=== PATIENT | male | born 1940 | race Caucasian/White ===

== ENCOUNTER 2018-01-24 16:16 | Inpatient (IN) ==
[2018-01-24] MEDS ORDERED: Naloxone 0.4 MG/ML INJ IVP PRN (21:33)
[2018-01-24] MEDS ORDERED: D5% in Water 1,000 ML IVC PRN (21:37)
[2018-01-24] MEDS ORDERED: Dextrose Gel 15 GM/37.5 ML TUBE PO PRN ×2 (21:37)
[2018-01-24] MEDS ORDERED: *HR* Dextrose 50 % in Water (Syg) 50 ML SYRINGE IVP PRN (21:37)
[2018-01-24] MEDS: 0.9 % Sodium Chloride 1,000 ML IVC SCH (22:23)
[2018-01-25] MEDS: Insulin LISPRO 300 UNITS/3 ML VIAL SQ SCH ×4 (00:15→18:43)
--- NOTE | 2018-01-25 01:50 | Internal Med History&Physical ---
Date of Encounter: 01/24/18 Time of Encounter: 20:00 Assessment and Plan (1) Small bowel obstruction Current visit: Yes Status: Acute Patient has nausea vomiting. CT scan shows small bowel obstruction. 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 - Keep the patient nothing by mouth, IV fluid. - NG tube placed, continue intermittent low pressure suction. - Consul surgery. 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 - We will consult oncology for further management (3) Hypertension Current visit: Yes Status: Acute Place patient on hydralazine IV when necessary. Qualifiers: Hypertension type: essential hypertension Qualified Code(s): I10 - Essential (primary) hypertension (4) Diabetes Current visit: Yes Status: Acute Patient takes Januvia at home. Will place the patient on low-dose sliding scale coverage. Qualifiers: Diabetes mellitus type: type 2 Diabetes mellitus alf insulin use: without buttermaker continuous churn use Diabetes mellitus complication status: without complication Qualified Code(s): E11.9 - Type 2 diabetes mellitus without complications (5) DVT prophylaxis Current visit: Yes Status: Acute Heparin subcutaneously Internal Medicine - H&P: HPI Chief complaint: Nausea and vomiting Admitted From: Home Plans for Post Hospital Care: Home History of present illness: Mr. Mcfarland is a 77 year old male with history of diabetes and hypertension, presented to [facility] emergency room for nausea and vomiting since 2 days ago. Patient said he has increased abdominal gas for several months. Since 2 days ago, he started has nausea and vomited a 6 times, the vomiting light brown fluid. Patient had last bowel movement this morning 6 AM, slow is normal. He has passed minimal gas today. Patient denies fever, chest pain, shortness of breath. Patient did complain body weight loss 45 pounds over last year. 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 Past Med Surg Social Fam HX - Past Medical History Medical history: arthritis, diabetes, hyperlipidemia, hypertension Psychiatric history: no psych history - Past Surgical History Surgical History: no surgical history - Social History Smoking Status: Former smoker Smokeless Tobacco Status: No Alcohol use: none Drug use: none - Family History Mother History Unknown: Yes Internal Medicine - H&P: Meds Amlodipine/Atorvastatin [Amlodipine-Atorvast 10-40 mg] 1 each PO 01/24/18 [ History] Aspirin [Aspirin] 81 mg PO 01/24/18 [History] Cholecalciferol (D-3) [Vitamin D] 01/24/18 [History] Flaxseed Oil [Dulac-3 Flaxseed Oil] 01/24/18 [History] Lactobacillus Acidophilus [Acidophilus] 1 each PO 01/24/18 [History] Simethicone [Gas Relief] 125 mg PRN 01/24/18 [History] Simvastatin [Zocor] 40 mg PO HS 01/24/18 [History] SitaGLIPtin [Januvia] 25 mg PO DAILY 01/24/18 [History] Tums PRN 01/24/18 [History] 3 Allergy/AdvReac Type Severity Reaction Status Date / Time No Known Drug Allergies Allergy Unknown None Verified 01/24/18 18:35 All Systems PM: A 10-system review of systems was performed and is negative for pertinent findings except as documented above in the HPI. - Constitutional Vitals: Temp Pulse Resp BP Pulse Ox 99.3 F 92 16 132/77 95 01/25/18 00:15 01/25/18 00:15 01/25/18 00:15 01/25/18 00:15 01/25/18 00:15 General appearance: Present: A&O X 3, no acute distress, answers questions appropriately - Head Head exam: Present: atraumatic, normocephalic - Eye Eye exam: Present: PERRL, conjuntiva pink, sclera anicteric Pupils: Present: PERRL - Neck Neck exam general surgery: Present: supple, trachea midline. Absent: lymphadenopathy - Respiratory Respiratory exam: Present: CTAB. Absent: accessory muscle use, rales, rhonchi, wheezes - Cardiovascular Cardiovascular exam: Present: RRR, +S1, +S2. Absent: diastolic murmur, gallop, rubs, systolic murmur - GI/Abdominal GI/Abdominal exam: Present: hyperactive bowel sounds, normal bowel sounds, soft , tenderness (in 4Q, no rebound), no peritoneal signs. Absent: distended - Extremities Exam Extremities exam: Present: warm, radial pulses palpable and symmetrical. Absent : calf tenderness, cyanotic, pedal edema - Neurological Exam Neurological exam: Present: CN II-XII intact, oriented X3, no focal deficits. Absent: pronater drift, facial droop, speech deficit - Skin Skin exam: Present: dry, intact
[2018-01-25] MEDS: *HR* Heparin 5,000 UNIT/ML VIAL SQ SCH ×2 (05:54→18:42)
[2018-01-25 08:25] LABS: Basophils % 0.5 %; Eosinophils # 0.1 K/mcL (0.0-0.6); Eosinophils % 0.8 %; Hematocrit 25.1 % (37.5-50.1); Immature Granulocytes % 0.2 % (0-4); Lymphocytes % 11.7 %; Mean Corpuscular HGB Conc 31.9 g/dL (31.6-35.5); Mean Corpuscular Hemoglobin 25.2 pg (28.0-33.3); Mean Corpuscular Volume 79.2 fL (83.0-100.0); Mean Platelet Volume 10.5 fL (9.4-12.4); Monocytes % 12.3 %; Neutrophils # 6.1 K/mcL (1.6-8.9); Platelet Count 296 K/mcL (140-400); Red Blood Count 3.17 M/mcL (4.19-5.50); Red Cell Distribution Width 14.8 % (11.5-14.5); Segmented Neutrophils % 74.5 %
[2018-01-25 08:40] LABS: Calcium 7.7 mg/dL (8.6-10.3); Magnesium 1.8 mg/dL (1.6-2.6); Potassium 3.7 mEq/L (3.5-5.1)
[2018-01-25 09:25] LABS: INR 1.5; Prothrombin Time 16.1 Seconds (9.4-12.1)
[2018-01-25 09:28] LABS: Activated Partial Thrombo Time 28.7 Seconds (26.0-36.0)
[2018-01-25] MEDS: 0.9 % Sodium Chloride 1,000 ML IVC SCH (11:07)
--- NOTE | 2018-01-25 12:15 | General Surgery Consult Note ---
<Sunil Henderson - Last Filed: 01/25/18 16:22> Date of Encounter: 01/25/18 Time of Encounter: 09:30 Assessment and Plan (1) Small bowel obstruction Current Visit: Yes Status: Acute CT of abdomen and pelvis from outside hospital showed dilated small bowel loops with liver lesion and possible cecal mass. Repeat CT of the abdomen and pelvis at [place] shows findings suggestive of presence of abnormal soft tissue mass in the proximal ascending colon centered in the region of the ileocecal valve. Finding is highly suspicious for presence of a neoplastic mass with associated metastatic lymphadenopathy within the root of the small bowel mesentery. Mild dilatation of distal/terminal ileum and mild thickening of the wall of the distal most portion of the terminal ileum. Findings in part may be on the basis of partial obstruction associated with the mass involving the colon. Labs show hemoglobin is at 8.0, BUN of 43, and creatinine of 2.32. Baseline creatinine appears to be at 1.82. No leukocytosis. Plan: Continue the NG tube to LIWS-Will watch the 24 hr trend of NG drainage NPO diet Continue IVF Will order pre-albumin and albumin Will order CT of the chest to evaluate for possible mets. Dr. Deutsch will personally consult IR for a guided biopsy of liver and retroperitoneal mass and consult Nephrology tomorrow morning CEA markers ordered- Elevated at 19.8 Pain control and supportive care. OOTB and ambulate with assistance at least three times a day continue to monitor the patient closely History of Present Illness Reason for consult: other (Small bowel obstruction) History of present illness: Mr. Mcfarland is a 77 year old male with history of [id number] diabetes , hypertension, and hyperlipidemia who presented from [facility] emergency room for small bowel obstruction. She presented to [facility] emergency room for nausea and vomiting for the past 2 days. Patient said he has increased abdominal gas for several months. Patient stated that the past couple of days he had nausea and vomitted about 6 times. He denies any blood in his emesis and described the vomiting as light brown fluid. Patient had last bowel movement yesterday morning and described it as soft, formed, and nonbloody. He has passed minimal gas today. Patient currently denies fever, chest pain, shortness of breath, nausea, vomiting, abdominal pain, urinary symptoms, and any weaknesses. Patient did complain body weight loss 45 pounds over last year. 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 Patient is aware of the findings from the CT. Patient also state family history of cancer as follows: Mom with unknown cancer, one sister was stomach cancer, and another sister with lung cancer. Patient denies any self history of cancer and stated he has never had EGD or colonoscopy done. He stated that he not had a colonoscopy completed because he was afraid of possible perforation. Past Med Surg Social Fam HX - Past Medical History Medical history: arthritis, diabetes, hyperlipidemia, hypertension Psychiatric history: no psych history - Past Surgical History Surgical History: no surgical history - Social History Smoking Status: Former smoker Smokeless Tobacco Status: No Alcohol use: none Drug use: none - Family History Mother History Unknown: Yes Medications and Allergies Aspirin [Aspirin] 81 mg PO DAILY 01/24/18 [History] Cholecalciferol (D-3) [Vitamin D] 1,000 mg PO DAILY 01/24/18 [History] Flaxseed Oil [Holt-3 Flaxseed Oil] 1,000 mg PO DAILY 01/24/18 [History] Simethicone [Gas Relief] 125 mg PO QID PRN 01/24/18 [History] Simvastatin [Zocor] 40 mg PO HS 01/24/18 [History] SitaGLIPtin [Januvia] 25 mg PO DAILY 01/24/18 [History] Amlodipine Besylate/Benazepril [Lotrel 10-40 mg Capsule] 1 cap PO DAILY [History] 3 Allergy/AdvReac Type Severity Reaction Status Date / Time No Known Drug Allergies Allergy Unknown None Verified 01/24/18 18:35 Review of Systems All systems PM: The remainder of the systems were reviewed and are negative - Constitutional as per HPI General Surgery Exam Initial Vital Signs Temp Pulse Resp BP Pulse Ox 97.6 F 88 15 124/62 97 01/24/18 17:50 01/24/18 17:50 01/24/18 17:50 01/24/18 17:50 01/24/18 17:50 - General physical appearance well developed, well nourished, no distress - Eyes PERRL, normal ocular movement - ENT normal mucosa, Other (NG tube to LIWS. NG tube in the right nare. Cannister shoes light brown drainage with no blood) - Neck trachea midline - Respiratory normal respiratory effort, clear to auscultation - Cardiovascular Cardiovascular exam: Present: RRR, no murmurs/rubs/gallops - Abdomen Abdomen general surgery: Present: bowel sounds present (Hyperactive bowel sounds in all four quadrants), soft, non tender, distended (Mildly distended). Absent: guarding, rebound, rigid - Integumentary Integumentary general surgery: Present: warm and dry, no abnormal pigmentation - Neurologic Present: CN 2-12 grossly intact - Psychiatric Psychiatric general surgery: Present: A&Ox3, appropriate, other (Pleasant) Exam Initial Vital Signs Temp Pulse Resp BP Pulse Ox 97.6 F 88 15 124/62 97 01/24/18 17:50 01/24/18 17:50 01/24/18 17:50 01/24/18 17:50 01/24/18 17:50 Results - Labs 01/25/18 07:04 01/25/18 07:04 Abnormal lab results RBC 3.17 M/mcL (4.19-5.50) L 01/25/18 07:04 Hgb 8.0 g/dL (12.9-16.9) L 01/25/18 07:04 Hct 25.1 % (37.5-50.1) L 01/25/18 07:04 MCV 79.2 fL (83.0-100.0) L 01/25/18 07:04 MCH 25.2 pg (28.0-33.3) L 01/25/18 07:04 RDW 14.8 % (11.5-14.5) H 01/25/18 07:04 PT 16.1 Seconds (9.4-12.1) H 01/25/18 08:37 Chloride 116 mEq/L (98-107) H 01/25/18 07:04 Carbon Dioxide 19 mEq/L (23-29) L 01/25/18 07:04 BUN 43 mg/dL (8-23) H 01/25/18 07:04 Creatinine 2.32 mg/dL (0.70-1.30) H 01/25/18 07:04 Est GFR ( Amer) 33 (> 60) L 01/25/18 07:04 Est GFR (Non-Af Amer) 27 (> 60) L 01/25/18 07:04 Calculated Osmolality 311 (280-300) H 01/25/18 07:04 Calcium 7.7 mg/dL (8.6-10.3) L 01/25/18 07:04 Carcinoembryonic Ag 19.8 ng/mL (Less than 5.0) H 01/25/18 08:37 Diabetes panel 01/25/18 Range/Units 07:04 Sodium 145 (136-145) mEq/L Potassium 3.7 (3.5-5.1) mEq/L Chloride 116 H (98-107) mEq/L Carbon Dioxide 19 L (23-29) mEq/L BUN 43 H (8-23) mg/dL Creatinine 2.32 H (0.70-1.30) mg/dL Glucose 95 (70-105) mg/dL Calcium 7.7 L (8.6-10.3) mg/dL Calcium panel 01/25/18 Range/Units 07:04 Calcium 7.7 L (8.6-10.3) mg/dL Pituitary panel 01/25/18 Range/Units 07:04 Sodium 145 (136-145) mEq/L Potassium 3.7 (3.5-5.1) mEq/L Chloride 116 H (98-107) mEq/L Carbon Dioxide 19 L (23-29) mEq/L BUN 43 H (8-23) mg/dL Creatinine 2.32 H (0.70-1.30) mg/dL Glucose 95 (70-105) mg/dL Calcium 7.7 L (8.6-10.3) mg/dL Adrenal panel 01/25/18 Range/Units 07:04 Sodium 145 (136-145) mEq/L Potassium 3.7 (3.5-5.1) mEq/L Chloride 116 H (98-107) mEq/L Carbon Dioxide 19 L (23-29) mEq/L BUN 43 H (8-23) mg/dL Creatinine 2.32 H (0.70-1.30) mg/dL Glucose 95 (70-105) mg/dL Calcium 7.7 L (8.6-10.3) mg/dL All other labs normal. Consult Discharge Plan - Plan Referrals: Reggie Reynoso MD [Primary Care Provider] - <Tiburcio Deutsch - Last Filed: 01/26/18 00:59> Date of Encounter: 01/25/18 Review of Systems All systems PM: The remainder of the systems were reviewed and are negative General Surgery Exam Initial Vital Signs Temp Pulse Resp BP Pulse Ox 97.6 F 88 15 124/62 97 01/24/18 17:50 01/24/18 17:50 01/24/18 17:50 01/24/18 17:50 01/24/18 17:50 Exam Initial Vital Signs Temp Pulse Resp BP Pulse Ox 97.6 F 88 15 124/62 97 01/24/18 17:50 01/24/18 17:50 01/24/18 17:50 01/24/18 17:50 01/24/18 17:50 Results - Labs 01/25/18 07:04 01/25/18 07:04 Abnormal lab results RBC 3.17 M/mcL (4.19-5.50) L 01/25/18 07:04 Hgb 8.0 g/dL (12.9-16.9) L 01/25/18 07:04 Hct 25.1 % (37.5-50.1) L 01/25/18 07:04 MCV 79.2 fL (83.0-100.0) L 01/25/18 07:04 MCH 25.2 pg (28.0-33.3) L 01/25/18 07:04 RDW 14.8 % (11.5-14.5) H 01/25/18 07:04 PT 16.1 Seconds (9.4-12.1) H 01/25/18 08:37 Chloride 116 mEq/L (98-107) H 01/25/18 07:04 Carbon Dioxide 19 mEq/L (23-29) L 01/25/18 07:04 BUN 43 mg/dL (8-23) H 01/25/18 07:04 Creatinine 2.32 mg/dL (0.70-1.30) H 01/25/18 07:04 Est GFR ( Amer) 33 (> 60) L 01/25/18 07:04 Est GFR (Non-Af Amer) 27 (> 60) L 01/25/18 07:04 POC Glucose 104 mg/dL (68-89) H 01/26/18 00:16 Calculated Osmolality 311 (280-300) H 01/25/18 07:04 Calcium 7.7 mg/dL (8.6-10.3) L 01/25/18 07:04 Prealbumin 16.8 mg/dL (17.0-34.0) L 01/25/18 16:15 Carcinoembryonic Ag 19.8 ng/mL (Less than 5.0) H 01/25/18 08:37 Diabetes panel 01/25/18 01/25/18 Range/Units 07:04 16:15 Sodium 145 (136-145) mEq/L Potassium 3.7 (3.5-5.1) mEq/L Chloride 116 H (98-107) mEq/L Carbon Dioxide 19 L (23-29) mEq/L BUN 43 H (8-23) mg/dL Creatinine 2.32 H (0.70-1.30) mg/dL Glucose 95 (70-105) mg/dL Calcium 7.7 L (8.6-10.3) mg/dL Albumin 3.5 (3.5-5.7) g/dL Calcium panel 01/25/18 01/25/18 Range/Units 07:04 16:15 Calcium 7.7 L (8.6-10.3) mg/dL Albumin 3.5 (3.5-5.7) g/dL Pituitary panel 01/25/18 Range/Units 07:04 Sodium 145 (136-145) mEq/L Potassium 3.7 (3.5-5.1) mEq/L Chloride 116 H (98-107) mEq/L Carbon Dioxide 19 L (23-29) mEq/L BUN 43 H (8-23) mg/dL Creatinine 2.32 H (0.70-1.30) mg/dL Glucose 95 (70-105) mg/dL Calcium 7.7 L (8.6-10.3) mg/dL Adrenal panel 01/25/18 01/25/18 Range/Units 07:04 16:15 Sodium 145 (136-145) mEq/L Potassium 3.7 (3.5-5.1) mEq/L Chloride 116 H (98-107) mEq/L Carbon Dioxide 19 L (23-29) mEq/L BUN 43 H (8-23) mg/dL Creatinine 2.32 H (0.70-1.30) mg/dL Glucose 95 (70-105) mg/dL Calcium 7.7 L (8.6-10.3) mg/dL Albumin 3.5 (3.5-5.7) g/dL All other labs normal. - Attending Attestation I examined this patient and my medical decision-making was reviewed with the Resident Physician. I agree with the documented findings, disposition and treatment plan as described except to the extent set forth below. I reviewed the above assessment and evaluation with the resident and agree with the above plan. Patient has had a 2 day history of some abdominal pain with nausea vomiting and some distention. He was transferred to [facility] with signs concerning for cecal mass and intra-abdominal lymphadenopathy. CT scan images were not available so the CT scan was repeated without contrast ( patient has chronic kidney disease). NG tube had been placed and he has noted improvement in his symptoms with no nausea or vomiting. There was also concern about partial small bowel structure. He states that he has been passing flatus. He has some mild discomfort to palpation in the right side of the abdomen. No palpable masses identified. I personally reviewed the CT scan images with the patient and patient's family. There are multiple liver lesions and masses in the retroperitoneal space as well as a cecal mass and mesenteric lymphadenopathy. There is concern for metastatic disease possiblly originating from the cecum. We will continue with NGT decompression and determine what his overall NG tube output is. This will help to determine whether or not we can give him a bowel prep for possible colonoscopy. I will order for CT scan guided biopsy hopefully of the liver lesions and the intra-abdominal mass. I will also consult nephrology. We will order a CEA level and order a CT scan of the chest for completion. Discussed with the patient and family members and they agree with the above plan.
--- NOTE | 2018-01-25 15:52 | Internal Med Progress Note ---
Date of Encounter: 01/25/18 Time of Encounter: 15:49 - Assessment and plan (1) Small bowel obstruction Current Visit: Yes Status: Acute Assessment and plan: Clinically improving. Abdominal pain, nausea, and vomiting resolved. Surgery consulted; appreciate input. Continue NG tube with suction. NPO with IVF. Plan for possible EGD/colonoscopy in next 24-48 hours. (2) Carcinoma of cecum Current Visit: Yes Status: Acute Assessment and plan: New diagnosis. Oncology consulted; appreciate input. (3) Diabetes Current Visit: Yes Status: Chronic Assessment and plan: Continue accuchecks and SSI QID AC/HS. Qualifiers: Diabetes mellitus type: type 2 Diabetes mellitus usp insulin use: without usp use Diabetes mellitus complication status: without complication Qualified Code(s): E11.9 - Type 2 diabetes mellitus without complications (4) Hypertension Current Visit: Yes Status: Chronic Assessment and plan: Continue IV hydralazine PRN. Qualifiers: Hypertension type: essential hypertension Qualified Code(s): I10 - Essential (primary) hypertension (5) DVT prophylaxis Current Visit: Yes Status: Acute Assessment and plan: Continue SC heaprin. - Time Spent With Patient less than 15 minutes - Subjective Interval history: Patient had no acute events overnight. He states that he is feeling better this AM. No further episodes of nausea or vomiting. No issues with NG tube. He does have dry mouth and wants few ice chips. He denies any abdominal pain, fever, or chills. He has no other complaints. - Constitutional Vitals: Temp Pulse Resp BP Pulse Ox 98.3 F 70 15 109/56 98 01/25/18 12:54 01/25/18 12:54 01/25/18 12:54 01/25/18 12:54 01/25/18 12:54 General appearance: Present: cooperative, A&O X 3, pleasant, no acute distress, obese, answers questions appropriately - Respiratory Respiratory exam: Present: CTAB. Absent: accessory muscle use, rales, rhonchi, wheezes Additional comments: Normal WOB - Cardiovascular Cardiovascular exam: Present: RRR, +S1, +S2. Absent: diastolic murmur, gallop, rubs, systolic murmur Additional comments: No BLE edema - GI/Abdominal GI/Abdominal exam: Present: normal bowel sounds, soft. Absent: distended, hepatomegaly, mass, splenomegaly, tenderness - Psychiatric Psychiatric exam: Present: normal affect, normal mood. Absent: anxious, depressed - Skin Skin exam: Present: dry, intact, warm. Absent: cyanosis, rash Internal Medicine: Result - Labs CBC & Chem 7: 01/25/18 07:04 01/25/18 07:04 Labs: Short CBC 01/25/18 Range/Units 07:04 WBC 8.3 (4.3-11.1) K/mcL Hgb 8.0 L (12.9-16.9) g/dL Hct 25.1 L (37.5-50.1) % Plt Count 296 (140-400) K/mcL Neutrophils # 6.1 (1.6-8.9) K/mcL BMP 01/25/18 07:04 Sodium 145 Potassium 3.7 Chloride 116 H Carbon Dioxide 19 L BUN 43 H Creatinine 2.32 H Glucose 95 Calcium 7.7 L - ABG Interpretation ABG results: PT/INR, D-dimer PT 16.1 Seconds (9.4-12.1) H 01/25/18 08:37 - Impressions Impressions Abdomen/Pelvis CT 01/25/18 08:53 IMPRESSION: 1. Findings suggestive of presence of abnormal soft tissue mass in the proximal ascending colon centered in the region of the ileocecal valve. Finding is highly suspicious for presence of a neoplastic mass with associated metastatic lymphadenopathy within the root of the small bowel mesentery. 2. Mild dilatation of distal/terminal ileum and mild thickening of the wall of the distal most portion of the terminal ileum. Findings in part may be on the basis of partial obstruction associated with the mass involving the colon. Other etiologies including direct invasion of the terminal ileum also on the differential diagnosis. 3. Findings consistent with presence of metastatic disease involving the liver. 4. Cholelithiasis. 5. Noncalcified 9 mm right lower lobe pulmonary nodule. While finding could represent a granuloma, metastatic lesion is also a possibility. 6. Mild prominence of mural thickness of the distal esophagus. Finding raises possibility of changes of mild esophagitis as described above. D/ / 01/25/2018 10:21:18 Jet Aguirre MD / pedro Interpreting Provider: Jet Aguirre MD Consult Discharge Plan - Plan Referrals: Reggie Reynoso MD [Primary Care Provider] -
[2018-01-26] MEDS: Insulin LISPRO 300 UNITS/3 ML VIAL SQ SCH ×4 (00:49→18:14)
[2018-01-26] MEDS: *HR* Heparin 5,000 UNIT/ML VIAL SQ SCH ×2 (06:29→17:18)
[2018-01-26 07:36] LABS: Basophils % 0.3 %; Eosinophils # 0.1 K/mcL (0.0-0.6); Eosinophils % 1.2 %; Hematocrit 24.7 % (37.5-50.1); Hemoglobin 7.8 g/dL (12.9-16.9); Immature Granulocytes % 0.8 % (0-4); Immature Platelets 2.9 % (1.1-6.1); Lymphocytes # 0.8 K/mcL (0.6-4.6); Mean Corpuscular HGB Conc 31.6 g/dL (31.6-35.5); Mean Corpuscular Hemoglobin 25.3 pg (28.0-33.3); Mean Corpuscular Volume 80.2 fL (83.0-100.0); Mean Platelet Volume 10.6 fL (9.4-12.4); Monocytes # 0.8 K/mcL (0.0-1.3); Monocytes % 11.7 %; Neutrophils # 4.9 K/mcL (1.6-8.9); Platelet Count 231 K/mcL (140-400); Red Blood Count 3.08 M/mcL (4.19-5.50); Red Cell Distribution Width 15.2 % (11.5-14.5)
[2018-01-26 07:56] LABS: Calcium 8.1 mg/dL (8.6-10.3); Potassium 3.7 mEq/L (3.5-5.1)
[2018-01-26] MEDS ORDERED: D5% in 0.45% NACL 1,000 ML IVC SCH (08:15)
--- NOTE | 2018-01-26 09:40 | Internal Med Progress Note ---
Date of Encounter: 01/26/18 Time of Encounter: 09:38 - Assessment and plan (1) Small bowel obstruction Current Visit: Yes Status: Acute Assessment and plan: Clinically improving. Abdominal pain, nausea, and vomiting resolved. Surgery consulted; appreciate input. Continue NG tube with suction. Good NG output so far. NPO with IVF. Plan for possible EGD/colonoscopy. (2) Carcinoma of cecum Current Visit: Yes Status: Acute Assessment and plan: New diagnosis. Oncology consulted; appreciate input. IR consulted for guided biopsy of liver and retroperitoneal mass. (3) Diabetes Current Visit: Yes Status: Chronic Assessment and plan: Continue accuchecks and SSI QID AC/HS. Qualifiers: Diabetes mellitus type: type 2 Diabetes mellitus longterm insulin use: without marina porter use Diabetes mellitus complication status: without complication Qualified Code(s): E11.9 - Type 2 diabetes mellitus without complications (4) Hypertension Current Visit: Yes Status: Chronic Assessment and plan: Continue IV hydralazine PRN. Qualifiers: Hypertension type: essential hypertension Qualified Code(s): I10 - Essential (primary) hypertension (5) Anemia Current Visit: Yes Status: Chronic Assessment and plan: Chronic issue. Hgb holding steady. Continue to monitor. Transfuse if Hgb < 7.0. Recheck CBC in AM. Qualifiers: Anemia type: unspecified type Qualified Code(s): D64.9 - Anemia, unspecified (6) DVT prophylaxis Current Visit: Yes Status: Acute Assessment and plan: Continue SC heaprin. - Time Spent With Patient less than 15 minutes - Subjective Interval history: Patient had no acute events overnight. He states that he is feeling good this AM. No further episodes of nausea or vomiting. No issues with NG tube. He really wants to drink something. He denies any abdominal pain, fever, or chills. He has no other complaints. - Constitutional Vitals: Temp Pulse Resp BP Pulse Ox 98.7 F 66 16 124/55 94 01/26/18 07:12 01/26/18 07:12 01/26/18 07:12 01/26/18 07:12 01/26/18 07:12 General appearance: Present: cooperative, A&O X 3, pleasant, no acute distress, obese, answers questions appropriately - Respiratory Respiratory exam: Present: CTAB. Absent: accessory muscle use, rales, rhonchi, wheezes Additional comments: Normal WOB - Cardiovascular Cardiovascular exam: Present: RRR, +S1, +S2. Absent: diastolic murmur, gallop, rubs, systolic murmur Additional comments: No BLE edema - GI/Abdominal GI/Abdominal exam: Present: hypoactive bowel sounds, soft. Absent: distended, hepatomegaly, mass, splenomegaly, tenderness - Psychiatric Psychiatric exam: Present: normal affect, normal mood. Absent: anxious, depressed - Skin Skin exam: Present: dry, intact, warm. Absent: cyanosis, rash Internal Medicine: Result - Labs CBC & Chem 7: 01/26/18 06:25 01/26/18 06:25 Labs: Short CBC 01/26/18 Range/Units 06:25 WBC 6.6 (4.3-11.1) K/mcL Hgb 7.8 L (12.9-16.9) g/dL Hct 24.7 L (37.5-50.1) % Plt Count 231 (140-400) K/mcL Neutrophils # 4.9 (1.6-8.9) K/mcL BMP 01/26/18 06:25 Sodium 148 H Potassium 3.7 Chloride 118 H Carbon Dioxide 22 L BUN 39 H Creatinine 1.88 H Glucose 104 Calcium 8.1 L Liver Function 01/25/18 Range/Units 16:15 Albumin 3.5 (3.5-5.7) g/dL - ABG Interpretation ABG results: PT/INR, D-dimer PT 16.1 Seconds (9.4-12.1) H 01/25/18 08:37 - Impressions Impressions Abdomen/Pelvis CT 01/25/18 08:53 IMPRESSION: 1. Findings suggestive of presence of abnormal soft tissue mass in the proximal ascending colon centered in the region of the ileocecal valve. Finding is highly suspicious for presence of a neoplastic mass with associated metastatic lymphadenopathy within the root of the small bowel mesentery. 2. Mild dilatation of distal/terminal ileum and mild thickening of the wall of the distal most portion of the terminal ileum. Findings in part may be on the basis of partial obstruction associated with the mass involving the colon. Other etiologies including direct invasion of the terminal ileum also on the differential diagnosis. 3. Findings consistent with presence of metastatic disease involving the liver. 4. Cholelithiasis. 5. Noncalcified 9 mm right lower lobe pulmonary nodule. While finding could represent a granuloma, metastatic lesion is also a possibility. 6. Mild prominence of mural thickness of the distal esophagus. Finding raises possibility of changes of mild esophagitis as described above. D/ / 01/25/2018 10:21:18 Jet Aguirre MD / [email or web address] Interpreting Provider: Jet Aguirre MD Chest CT 01/25/18 16:15 IMPRESSION: Multiple pulmonary nodules the largest is in the right lower lobe measuring about 7 mm. The findings are nonspecific. Metastatic disease cannot be excluded. Sequela of prior granulomatous disease. Pleural calcifications right hemithorax likely reflecting sequela of remote inflammatory infectious process. No additional calcifications in the pleura are noted to suggest asbestos related pleural disease. Hepatic lesions seen to better advantage on CT of the abdomen performed earlier the same day highly suspicious for metastatic disease in light of the patient's colonic mass. Gallstone. 4.4 cm ascending aorta. Atherosclerotic vascular calcifications. RECOMMENDATIONS: Fleischner Society guidelines for follow-up and management of incidentally detected pulmonary nodules: Multiple Solid Nodules: Nodule size equals 6-8 mm In a low-risk patient, CT at 3-6 months, then consider CT at 18-24 months. In a high-risk patient, CT at 3-6 months, then CT at 18-24 months. - Low risk patients include individuals with minimal or absent history of smoking and other known risk factors. - High risk patients include individuals with a history or smoking or known risk factors. Radiology 2017 http://pubs.rsna.org/doi/full/10.1148/radiol.[email or web address] D/ / 01/25/2018 17:15:41 Efrem Mejia MD / [email or web address] Interpreting Provider: Efrem Mejia MD Consult Discharge Plan - Plan Referrals: Reggie Reynoso MD [Primary Care Provider] -
--- NOTE | 2018-01-26 11:17 | General Surgery Progress Note ---
<Tana Law Jennifer - Last Filed: 01/26/18 11:24> Date of Encounter: 01/26/18 Time of Encounter: 11:00 - Assessment and Plan (1) Mass of cecum Status: Acute NPO for biopsy per Interventional Radiology Plan for IR biopsy of retroperitoneal mass today May leave NG tube out for now Bowel prep with Miralax and Gatorade after biopsy complete Plan for Colonoscopy with Dr. Deutsch in the next 24-48 hours CEA- 19.8 IV fluids Supportive care Surgery will continue to follow and assess progress (2) DVT prophylaxis Status: Acute Heparin 5000 units SQ twice daily for DVT prophylaxis Ambulate hallways TID with assistance Subjective Patient reports: no new complaints, feels better, voiding w/o difficulty, flatus , bowel movement (yesterday), afebrile Objective Vital Signs - Last 8 Hours Temp Pulse Resp BP Pulse Ox 01/26/18 10:49 98.0 F 69 16 123/75 95 01/26/18 07:12 98.7 F 66 16 124/55 94 01/26/18 03:51 99.0 F 75 16 116/62 95 Intake and Output 01/25/18 01/26/18 01/26/18 23:59 07:59 15:59 Intake Total 0 / 0 0 / 0 Output Total 750 / 750 600 / 600 200 / 200 Balance -750 / -750 -600 / -600 -200 / -200 Intake: Oral 0 / 0 0 / 0 Output: Urine 500 / 500 450 / 450 200 / 200 Gastric Drainage 250 / 250 150 / 150 Other: Meal NPO NPO Weight 109.8 kg Blood Glucose* 97 100 Patient Weight 01/26/18 23:59 Weight 109.8 kg - General physical appearance well developed, well nourished, no distress, no pain - Eyes normal ocular movement - ENT normal mucosa, atraumatic, normocephalic - Neck Neck exam: trachea midline - Respiratory normal respiratory effort, clear to auscultation - Cardiovascular Cardiovascular exam: Present: RRR - Abdomen Abdomen: Present: bowel sounds present, soft, non tender, wound (NG tube with only 10cm in the nare (incorrect placement)) - Neurologic CN 2-12 grossly intact - Musculoskeletal normal gait, normal posture - Psychiatric oriented to time, oriented to person, oriented to place, speech is normal, memory intact - Labs 01/26/18 06:25 01/26/18 06:25 Diabetes panel 01/25/18 01/26/18 Range/Units 16:15 06:25 Sodium 148 H (136-145) mEq/L Potassium 3.7 (3.5-5.1) mEq/L Chloride 118 H (98-107) mEq/L Carbon Dioxide 22 L (23-29) mEq/L BUN 39 H (8-23) mg/dL Creatinine 1.88 H (0.70-1.30) mg/dL Glucose 104 (70-105) mg/dL Calcium 8.1 L (8.6-10.3) mg/dL Albumin 3.5 (3.5-5.7) g/dL Calcium panel 01/25/18 01/26/18 Range/Units 16:15 06:25 Calcium 8.1 L (8.6-10.3) mg/dL Albumin 3.5 (3.5-5.7) g/dL Pituitary panel 01/26/18 Range/Units 06:25 Sodium 148 H (136-145) mEq/L Potassium 3.7 (3.5-5.1) mEq/L Chloride 118 H (98-107) mEq/L Carbon Dioxide 22 L (23-29) mEq/L BUN 39 H (8-23) mg/dL Creatinine 1.88 H (0.70-1.30) mg/dL Glucose 104 (70-105) mg/dL Calcium 8.1 L (8.6-10.3) mg/dL Adrenal panel 01/25/18 01/26/18 Range/Units 16:15 06:25 Sodium 148 H (136-145) mEq/L Potassium 3.7 (3.5-5.1) mEq/L Chloride 118 H (98-107) mEq/L Carbon Dioxide 22 L (23-29) mEq/L BUN 39 H (8-23) mg/dL Creatinine 1.88 H (0.70-1.30) mg/dL Glucose 104 (70-105) mg/dL Calcium 8.1 L (8.6-10.3) mg/dL Albumin 3.5 (3.5-5.7) g/dL Consult Discharge Plan - Plan Additional Instructions: Follow up with PCP in 2-3 days after discharge. Follow up with surgery Dr. Deutsch as directed. Follow up with oncology as directed. Oncologist will follow up on IR biopsy results. Referrals: Reggie Reynoso MD [Primary Care Provider] - (Web request entered. Office will call with appointment.) - Attending Attestation For this encounter, I have reviewed the FINANCE AND ADMINISTRATION MANAGER or PA documentation, treatment plan, and medical decision making; and I have had face to face time with this patient. <Tiburcio Deutsch M - Last Filed: 01/27/18 08:18> Date of Encounter: 01/26/18 Objective Intake and Output 01/26/18 01/27/18 01/27/18 23:59 07:59 15:59 Intake Total 120 / 120 Output Total 0 / 0 Balance 120 / 120 Intake: Oral 120 / 120 Output: Urine 0 / 0 Other: Percent of Meal Consumed 30% Blood Glucose* 128 - Labs 01/26/18 06:25 01/26/18 06:25 - Attending Attestation I reviewed the above assessment and evaluation and agree with the above plan. Patient states that he feels better the NG tube was removed due to misplacement. He has been passing flatus and has had bowel movements. Patient states that he would like to leave and can follow-up as an outpatient for colonoscopy. I explained to him that I do not think that this would be appropriate given the fact that there is a large mass that may be near obstructing and he could have continued or re-resumption of his symptoms if he would try to eat solid foods. The patient states that he has been eating cereals and breads without difficulty which implies that he has had this problem and has modified his diet at home for some time. Once again I reiterated that it would be best if he were to stay in the hospital to have his workup because he may need to have a surgical procedure while he is an inpatient but he is somewhat adamant that he would like to leave. I think it would be appropriate for him to be advanced to full liquids after the CT scan guided biopsy and if he does not have any problems then it wouldl be okay for him to be discharged home and I will schedule for an outpatient colonoscopy within the next week or two. I did explain that if he has any problems with abdominal distention or nausea or vomiting denies report to the emergency room. We will inform his primary service of his wishes and we will see how he tolerates advancement of his diet.
--- NOTE | 2018-01-26 12:04 | Nephrology Consult Note ---
<Alexandro Poole - Last Filed: 01/26/18 15:36> Date of Encounter: 01/26/18 Time of Encounter: 12:02 Assessment and Plan (1) Acute kidney injury Status: Acute LIZ on CKD. Patient is non-oliguric. Cr on admission was 2.32. baseline GFR 30-35. Currently improving. LIZ most likely from dehydration which is supported by hx of low PO intake and vomiting. Will further workup LIZ. Patient is anemic at 7.8, will workup for anemia. - UCr, Janeth, microalbumin pending - iron, folate, b12 pending - renal diet - avoid nephrotoxins. (2) Small bowel obstruction Status: Acute per primary team (3) Carcinoma of cecum Status: Acute per primary team (4) Hypertension Status: Chronic per primary team Qualifiers: Hypertension type: essential hypertension Qualified Code(s): I10 - Essential (primary) hypertension (5) Diabetes Status: Chronic per primary team Qualifiers: Diabetes mellitus type: type 2 Diabetes mellitus [facility] insulin use: without vermin exterminator use Diabetes mellitus complication status: without complication Qualified Code(s): E11.9 - Type 2 diabetes mellitus without complications; N18.3 - Chronic kidney disease, stage 3 (moderate); N18.3 - Chronic kidney disease, stage 3 (moderate) (6) Anemia Status: Chronic see above Qualifiers: Anemia type: unspecified type Qualified Code(s): D64.9 - Anemia, unspecified (7) Mass of cecum Status: Acute per primary team History of Present Illness - Reason for Consult Consult date: 01/26/18 Acute Kidney Injury Requesting physician: Tiburcio Deutsch - Chief Complaint SBO - History of Present Illness Mr Mcfarland is a 77yo M w/ pmh of HLD, DM, HTN, anemia presents with SBO and carcinoma of cecum. Nephrology is consulted for LIZ. Patient is seen and examined with patient's . Patient sees [facility], Dr. Blanton outpatient. Patient reports a 30 lb weight lost in the last couple of months unintentionally. Patient has been nausea and vomiting prior to admission, and has not been able to hold fluids down. Denies current n/v/f/c/cp Past Med Surg Social Fam HX - Past Medical History Medical history: arthritis, diabetes, hyperlipidemia, hypertension Psychiatric history: no psych history - Past Surgical History Surgical History: no surgical history - Social History Smoking Status: Former smoker Smokeless Tobacco Status: No Alcohol use: none Drug use: none - Family History Mother History Unknown: Yes Medications and Allergies Aspirin 81 mg PO DAILY 01/24/18 [History] Cholecalciferol (D-3) [Vitamin D] 1,000 mg PO DAILY 01/24/18 [History] Flaxseed Oil [Seaman-3 Flaxseed Oil] 1,000 mg PO DAILY 01/24/18 [History] Simvastatin [Zocor] 40 mg PO HS 01/24/18 [History] SitaGLIPtin [Januvia] 25 mg PO DAILY 01/24/18 [History] Amlodipine Besylate/Benazepril [Lotrel 10-40 mg Capsule] 1 cap PO DAILY [History] Lidocaine/Prilocaine [Emla] 1 appl TP AD #30 gm 01/30/18 [Rx] Omeprazole [PriLOSEC] 20 mg PO BIDAC #30 cap 01/30/18 [Rx] Ondansetron HCl [Zofran] 4 mg PO Q4H PRN #30 tablet 01/30/18 [Rx] Prochlorperazine Maleate [Compazine] 10 mg PO Q6H PRN #30 tablet 01/30/18 [Rx] Hydrochlorothiazide [Microzide] 12.5 mg PO DAILY 02/01/18 [History] 3 Allergy/AdvReac Type Severity Reaction Status Date / Time No Known Drug Allergies Allergy Unknown None Verified 01/31/18 11:56 Review of Systems All Systems: reviewed and no additional remarkable complaints except as stated Exam - Vital Signs Vital signs: Initial Vital Signs Temp Pulse Resp BP Pulse Ox 97.6 F 88 15 124/62 97 01/24/18 17:50 01/24/18 17:50 01/24/18 17:50 01/24/18 17:50 01/24/18 17:50 Vital Signs - Last 8 Hours Temp Pulse Resp BP Pulse Ox 01/26/18 10:49 98.0 F 69 16 123/75 95 01/26/18 07:12 98.7 F 66 16 124/55 94 Intake and Output 01/25/18 01/26/18 01/26/18 23:59 07:59 15:59 Intake Total 0 / 0 0 / 0 Output Total 750 / 750 600 / 600 200 / 200 Balance -750 / -750 -600 / -600 -200 / -200 Intake: Oral 0 / 0 0 / 0 Output: Urine 500 / 500 450 / 450 200 / 200 Gastric Drainage 250 / 250 150 / 150 Other: Meal NPO NPO Weight 109.8 kg Blood Glucose* 97 100 Patient Weight 01/26/18 23:59 Weight 109.8 kg - General Appearance General appearance: well-developed, well-nourished, appears started age, obese EENT: mucous membranes dry Neck: supple Respiratory: clear Cardiology: no edema, regular rate, regular rhythm Gastrointestinal: hypoactive bowel sounds Integumentary: warm and dry Neurologic: no focal deficit, alert and oriented x3 Psychiatric: mood/affect appropriate, cooperative Results - Lab Results 01/26/18 06:25 01/26/18 06:25 Most recent lab results Calcium 8.1 mg/dL (8.6-10.3) L 01/26/18 06:25 Magnesium 1.8 mg/dL (1.6-2.6) 01/25/18 07:04 Consult Discharge Plan - Plan Additional Instructions: Follow up with PCP in 2-3 days after discharge. Follow up with surgery Dr. Deutsch as directed. Follow up with oncology as directed. Oncologist will follow up on IR biopsy results. Referrals: Reggie Reynoso MD [Primary Care Provider] - (Web request entered. Office will call with appointment.) <Jessica Mcelroy Franny - Last Filed: 02/02/18 00:13> Date of Encounter: 01/26/18 Exam - Vital Signs Vital signs: Initial Vital Signs Temp Pulse Resp BP Pulse Ox 97.6 F 88 15 124/62 97 01/24/18 17:50 01/24/18 17:50 01/24/18 17:50 01/24/18 17:50 01/24/18 17:50 Results - Lab Results 01/26/18 06:25 01/26/18 06:25 Most recent lab results Calcium 8.1 mg/dL (8.6-10.3) L 01/26/18 06:25 Magnesium 1.8 mg/dL (1.6-2.6) 01/25/18 07:04 Urine Creatinine 154 mg/dL 04/02/18 16:20 Urine Sodium 81.2 mEq/L 01/26/18 16:20 - Attending Attestation I examined this patient and my medical decision-making was reviewed with the Resident Physician. I agree with the documented findings, disposition and treatment plan as described except to the extent set forth below. Pt seen and examined known to me from outpatient followup for CKD admitted with decreased po intake along with N/V and found with SBO and cecal mass for workup. Renal consulted for elevated SCr which is actually close to baseline, Will send some urine studies, agree with fluid resuscitation. Avoid nephrotoxins if possible. Will follow with you through this hospital stay.
[2018-01-26] MEDS ORDERED: Polyethylene Glycol 3350 255 GM POWDER PO ONE (12:21)
--- NOTE | 2018-01-26 13:55 | Event Note ---
Date of Encounter: 01/26/18 Time of Encounter: 13:44 Pt had orders for bowel prep with plans for c-scope tomorrow, but While rounding with Dr. Deutsch, Pt states he would like to leave the hospital. He states he feels uncomfortable lying in the bed and would like to move around. He further states that after the biopsies today, he would prefer to complete any other testing as an outpatient. Dr. Deutsch reinforced that he would much prefer to have patient remain in the hospital for bowel prep and possible colonoscopy vs surgical intervention if indicated. Pt states he would complete bowel prep as outpatient and return for surgery if needed. Dr. Deutsch further reinforced that patient has not had a p.o. challenge and would not be permitted a challenge until after biopsies are completed. After biopsies are completed, ok to trial patient on full liquid diet. If he tolerates without nausea, vomiting, abdominal pain, or distention then surgery would be agreeable to an outpatient colonoscopy and further intervention pending. If he is unable to tolerate a full liquid diet then he would be again strongly recommended to remain in the hospital for further workup and recommendations. IF the patient is able to go home today, the following recommendations would be made: Diet: Full liquid diet (no meat of any sort) and protein shakes (3 daily) for nutritional supplement until further notice. Colonoscopy: Will be placed on Dr. Deutsch's schedule for outpatient colonoscopy and information regarding bowel prep will be mailed. Pt states understanding and adherence to recommendation that if he has any nausea, vomiting, or increase in abdominal discomfort he should return to hospital. Oncology: Recommend referral/follow-up with oncology Reviewed above with bedside RNSilke. Bowel prep for today cancelled.
--- NOTE | 2018-01-26 13:59 | IR Procedure Note ---
Date of procedure: 01/26/18 Consent Obtained: Written consent Timeout: Correct patient and procedure verified, Correct site verified, Time out performed, Skin prep completed Indications: retroperitoneal mass, colon cancer Procedure Performed: biopsy Was there an behavioral health assistant present: No Site/Technique: rt retroperitoneum, 18G gun, 4 cores Results/Findings: positive Estimated blood loss (cc): 0 Complications: None; Tolerated procedure well Post Procedure Treatment Plan: dc to floor Specimen: 4 cores
[2018-01-26 16:32] LABS: % Iron Saturation 4 % (20-55); Iron 10 mcg/dL (65-175); Transferrin 195 mg/dL (203-362)
[2018-01-26 16:57] LABS: Folate 12.6 ng/mL (3.0-16.0)
--- NOTE | 2018-01-26 17:10 | Oncology Inp Consult Note ---
<Julieta Hdez L - Last Filed: 01/27/18 15:08> Date of Encounter: 01/26/18 Time of Encounter: 16:00 Assessment and Plan (1) Mass of cecum Status: Acute Assessment and plan: Admitted with SBO likely secondary to cecal mass. At time of assessment today, his NG tube has been removed and he is tolerating liquids. He has a normal bowel movement yesterday, his pain is controlled. Medical management at this time per surgical team-Dr. Deutsch CT chest/abdomen/Pelvis without contrast as detailed in HPI reveals findings suggestive of presence of abnormal soft tissue mass in the proximal ascending colon centered in the region of the ileocecal valve with associated metastatic lymphadenopathy within the root of the small bowel mesentery, mild dilatation of distal/terminal ileum and mild thickening of the wall of the distal most portion of the terminal ileum and several low-attenuation lesions within the liver along with multiple pulmonary nodules which are concerning for metastatic disease. CEA 19.8 Anemia with hgb 7.8, denies melena or hematochezia. Likely secondary to his cecal mass superimposed on anemia related to CKD/LIZ. I have ordered B12, folate , iron and ferritin studies. Surgical consulted IR and he underwent IR biopsy of retroperitoneal mass on 2017, pathology report pending. He was planned for inpatient colonoscopy/EGD, however, tolerated NG tube removal and liquid diet for dinner. He apparently became quite adamant on being discharged and wished to follow up with surgery as an outpatient given his clinical improvement, when meeting with patient today he does appear to be quite set on being discharged home. Surgery agrees to discharge him on full liquid diet with protein shakes with outpatient follow up with colonoscopy. He will be set up for outpatient colonoscopy with Dr. Deutsch. He will also be arranged for close follow up with oncology end of this week/early next week to discuss pathology report and next steps in his treatment. Please refer to Dr. Adamson's attestation below for additional details. - Data of Consult Patient: new to practice Consult date: 01/26/18 Requesting Physician: Omar Simon MD Primary Care Provider: Reggie Reynoso MD - Consult Narrative Reason for consult: Mass of cecum History of present illness: Mr. Mcfarland is a 77 year old male with past medical history significant for non- insulin-dependent diabetes, hypertension, and hyperlipidemia. He presented to [facility] ER with complaint of nausea and vomiting of light brown liquid for the past 2 days. He reports continued normal bowel movements which he describes as soft, formed, and nonbloody. 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 Repeat CT of the abdomen and pelvis at [place] shows findings suggestive of presence of abnormal soft tissue mass in the proximal ascending colon centered in the region of the ileocecal valve. Finding is highly suspicious for presence of a neoplastic mass with associated metastatic lymphadenopathy within the root of the small bowel mesentery. Mild dilatation of distal/terminal ileum and mild thickening of the wall of the distal most portion of the terminal ileum. He was admitted with surgical consultation with Dr. Deutsch with the plan to monitor his response to NG placement with decompression for his partial obstruction. His CEA is 19.8. Nephrology was consulted, he is thought to have LIZ on CKD secondary to dehydration with his history of nausea and vomiting. CT imaging of his chest reveals multiple pulmonary nodules the largest is in the right lower lobe measuring about 7 mm, Sequela of prior granulomatous disease, Pleural calcifications right hemithorax likely reflecting sequela of remote inflammatory infectious process, Hepatic lesions seen to better advantage on CT of the abdomen performed earlier the same day highly suspicious for metastatic disease in light of the patient's colonic mass, 4.4 cm ascending aorta. Mr. Mcfarland reports about 45 pounds of unintentional weight loss over the past year. He has no personal history of cancer, he has not previously had a screening colonoscopy/EGD. Family history of cancer includes mother with unknown cancer, one sister was stomach cancer, and another sister with lung cancer. He is a former smoker. Past Med Surg Social Fam HX - Past Medical History Medical history: arthritis, diabetes, hyperlipidemia, hypertension Psychiatric history: no psych history - Past Surgical History Surgical History: no surgical history - Social History Smoking Status: Former smoker Smokeless Tobacco Status: No Alcohol use: none Drug use: none - Family History Mother History Unknown: Yes Medications and Allergies Aspirin 81 mg PO DAILY 01/24/18 [History] Cholecalciferol (D-3) [Vitamin D] 1,000 mg PO DAILY 01/24/18 [History] Flaxseed Oil [[place]-3 Flaxseed Oil] 1,000 mg PO DAILY 01/24/18 [History] Simethicone [Gas Relief] 125 mg PO QID PRN 01/24/18 [History] Simvastatin [Zocor] 40 mg PO HS 01/24/18 [History] SitaGLIPtin [Januvia] 25 mg PO DAILY 01/24/18 [History] Amlodipine Besylate/Benazepril [Lotrel 10-40 mg Capsule] 1 cap PO DAILY [History] 3 Allergy/AdvReac Type Severity Reaction Status Date / Time No Known Drug Allergies Allergy Unknown None Verified 01/24/18 18:35 Constitutional: Present: anorexia, fatigue, weakness, weight loss. Absent: chills, fever(s), frequent falls, headache(s), night sweats Eyes: Absent: change in vision Nose, mouth and throat: Absent: dysphagia, mouth lesions Cardiovascular: Absent: chest pain, irregular heart rhythm, palpitations Respiratory: Absent: cough, dyspnea Gastrointestinal: Present: as per HPI. Absent: abdominal pain, hematemesis, hematochezia, melena Additional comments: symptoms which led to presentation have now resolved Additional comments: denies dysuria or hematuria Musculoskeletal: Present: muscle weakness Integumentary: Absent: wounds Neurological: Absent: focal weakness, frequent falls Hematologic/Lymphatic: Present: as per HPI Oncology - Exam - Constitutional Vitals: Temp Pulse Resp BP Pulse Ox 97.0 F L 64 18 124/60 99 01/26/18 15:05 01/26/18 15:05 01/26/18 15:05 01/26/18 15:05 01/26/18 15:05 General appearance: cooperative, no acute distress, no febrile - Head Head exam: Present: atraumatic - Eye Eye exam: Present: normal appearance - ENT ENT exam: Present: mucous membranes moist - Respiratory Respiratory exam: Present: CTAB. Absent: respiratory distress - Cardiovascular Cardiovascular exam: Present: RRR, +S1, +S2 - GI/Abdominal GI/Abdominal exam: Present: normal bowel sounds, soft. Absent: tenderness - Extremities Exam Extremities exam: Present: normal inspection. Absent: calf tenderness - Neurological Exam Neurological exam: Present: alert, oriented X3, no focal deficits, strengths equal and symetr throughout - Psychiatric Psychiatric exam: Present: normal affect, normal mood - Skin Skin exam: Present: dry, intact, normal color, warm Oncology - Results Labs: Short CBC 01/26/18 Range/Units 06:25 WBC 6.6 (4.3-11.1) K/mcL Hgb 7.8 L (12.9-16.9) g/dL Hct 24.7 L (37.5-50.1) % Plt Count 231 (140-400) K/mcL Neutrophils # 4.9 (1.6-8.9) K/mcL BMP 01/26/18 06:25 Sodium 148 H Potassium 3.7 Chloride 118 H Carbon Dioxide 22 L BUN 39 H Creatinine 1.88 H Glucose 104 Calcium 8.1 L Liver Function 01/25/18 Range/Units 16:15 Albumin 3.5 (3.5-5.7) g/dL Consult Discharge Plan - Plan Additional Instructions: Follow up with PCP in 2-3 days after discharge. Follow up with surgery Dr. Deutsch as directed. Follow up with oncology as directed. Oncologist will follow up on IR biopsy results. Referrals: Reggie Reynoso MD [Primary Care Provider] - (Web request entered. Office will call with appointment.) <Jaime Adamson - Last Filed: 01/28/18 08:59> Date of Encounter: 01/26/18 - Data of Consult Requesting Physician: Omar Simon MD Primary Care Provider: Reggie Reynoso MD - Consult Narrative History of present illness: Mr. Mcfarland is a 77 year old male Oncology - Exam - Constitutional Vitals: Temp Pulse Resp BP Pulse Ox 97.9 F 76 16 114/63 93 01/26/18 19:06 01/26/18 19:06 01/26/18 19:06 01/26/18 19:06 01/26/18 19:06 - Attending Attestation Seen and examined patient and agree with assessment and plan. Patient had bx. He is tolerating po very well with NGT removed. The patient would like to go home. Therefore, plan is for outpatient colonoscopy to evaluate cecal mass further.
[2018-01-26 17:33] LABS: Creatinine,Urine 156 mg/dL; Microalbum/Creatinine Ratio,Ur 8 mcg/mg (Less than 30); Microalbumin,Urine 13 mg/L
--- NOTE | 2018-01-26 18:20 | Discharge Summary ---
- NOTES TO OUTPATIENT PROVIDER Notes to Outpatient Provider: Follow up with PCP in 2-3 days after discharge. Follow up with surgery Dr. Deutsch as directed. Follow up with oncology as directed. Oncologist will follow up on IR biopsy results. Orders not resulted at time of discharge: Pending orders 01/27/18 04:00 Basic Metabolic Panel AM 0400 CBC [Complete Blood Count] [HEME] AM 0400 Date of Encounter: 01/26/18 Time of Encounter: 18:18 - Discharge Diagnosis (1) Small bowel obstruction Priority: Primary Status: Resolved (2) Carcinoma of cecum Priority: Secondary Status: Acute (3) Diabetes Priority: Secondary Status: Chronic Qualifiers: Diabetes mellitus type: type 2 Diabetes mellitus wet roller insulin use: without wet roller use Diabetes mellitus complication status: without complication Qualified Code(s): E11.9 - Type 2 diabetes mellitus without complications (4) Hypertension Priority: Secondary Status: Chronic Qualifiers: Hypertension type: essential hypertension Qualified Code(s): I10 - Essential (primary) hypertension (5) Anemia Priority: Secondary Status: Chronic Qualifiers: Anemia type: unspecified type Qualified Code(s): D64.9 - Anemia, unspecified (6) DVT prophylaxis Priority: Secondary Status: Acute Hospital course: Mr. Mcfarland is a 77 year old male admitted for small bowel obstruction. Obstruction was thought to be secondary to cecum mass thought to be cancerous; looks to have multiple metastases. He was admitted to general medical floor. He was NPO and NG tube placed. Surgery was consulted. Recommended NG tube until ready for EGD/colonscopy vs surgery. IR consulted for biopsy of retroperitoneal mass. Biopsy was completed today. This afternoon, he told surgeon that he is adamant about going home. He does not want to stay here. He states that he will do bowel prep as outpatient and follow up with Dr. Deutsch as outpatient for the EGD/colonoscopy. NG tube was removed and he tolerated a liquid diet for dinner. Surgery agrees to discharge him with outpatient follow up. Surgery recommended full liquid diet (no meats of any sort) and protein shakes (3 times daily). He will be set up for outpatient colonscopy with Dr. Deutsch. He will be referred to oncology for outpatient follow up. Oncology will discuss biopsy results with him. He will follow up with PCP in 2-3 days after discharge. Patient has met maximum benefit of this hospitalization and will be discharged home in stable condition. Discharge discussed with: patient, family, nurse - Time Spent with Patient Total time spent providing and/or coordinating discharge services: Greater than 30 minutes - Discharge Medications Home Medications: Aspirin 81 mg PO DAILY 01/24/18 [History] Cholecalciferol (D-3) [Vitamin D] 1,000 mg PO DAILY 01/24/18 [History] Flaxseed Oil [[place]-3 Flaxseed Oil] 1,000 mg PO DAILY 01/24/18 [History] Simethicone [Gas Relief] 125 mg PO QID PRN 01/24/18 [History] Simvastatin [Zocor] 40 mg PO HS 01/24/18 [History] SitaGLIPtin [Januvia] 25 mg PO DAILY 01/24/18 [History] Amlodipine Besylate/Benazepril [Lotrel 10-40 mg Capsule] 1 cap PO DAILY [History] Allergies/Adverse Reactions: 3 Allergy/AdvReac Type Severity Reaction Status Date / Time No Known Drug Allergies Allergy Unknown None Verified 01/24/18 18:35 Date of admission: 01/24/18 21:33 Primary care physician: Reggie Reynoso MD Consults: 01/24/18 18:33 Consult to Nutrition [CONS] Routine Comment: Consulting Provider: NUTRITION Reason for Dietary Consult: MST Score 01/24/18 21:38 Consult to Surgery [CONS] Routine Consulting Provider: Surgery [facility] Reason for Consult: Dr Get PATRCIIO called by [facility] ER Call Completed: Yes 01/24/18 21:39 Consult to Oncology [CONS] Routine Consulting Provider: Oncology [facility] Su[facility] Reason for Consult: Newly found cecal mass with possible liver metastasis Call Completed: No 01/26/18 01:01 Consult to Interventional Radiology [CONS] Routine Consulting Provider: Radiology Interventional Cols Reason for Consult: Liver masses, retroperitoneal mass, cecal mass. Request for CT scan guided biopsy of liver mass and right retroperitineal mass Call Completed: No 01/26/18 09:08 Consult to Nephrology [CONS] Routine Consulting Provider: Kidney Suzy/JIA/LATHA/MARIA G Reason for Consult: Patient known to service. Likely metastatic colon cancer. Elevated creatinine. Time Notified: 08:35 Call Completed: Yes Discharging clinician: Buddy Rossi Anticipated date of discharge: 01/26/18 - Constitutional Vitals: Temp Pulse Resp BP Pulse Ox 97.0 F L 64 18 124/60 99 01/26/18 15:05 01/26/18 15:05 01/26/18 15:05 01/26/18 15:05 01/26/18 15:05 General appearance: Present: cooperative, A&O X 3, pleasant, no acute distress, obese, answers questions appropriately - Respiratory Respiratory exam: Present: CTAB. Absent: accessory muscle use, rales, rhonchi, wheezes Additional comments: Normal WOB - Cardiovascular Cardiovascular exam: Present: RRR, +S1, +S2. Absent: diastolic murmur, gallop, rubs, systolic murmur Additional comments: No BLE edema - GI/Abdominal GI/Abdominal exam: Present: normal bowel sounds, soft. Absent: distended, hepatomegaly, mass, splenomegaly, tenderness - Psychiatric Psychiatric exam: Present: normal affect, normal mood. Absent: anxious, depressed - Skin Skin exam: Present: dry, intact, warm. Absent: cyanosis, rash - Patient Status Disposition: Home, Self-Care Condition: Fair Functional capacity at discharge: independent ambulation Overall status at discharge: patient is progressing back to baseline - Discharge Instructions Follow Up With: Reggie Reynoso MD [Primary Care Provider] - Additional Instructions: Follow up with PCP in 2-3 days after discharge. Follow up with surgery Dr. Deutsch as directed. Follow up with oncology as directed. Oncologist will follow up on IR biopsy results. - Diet and Activity Activity: resume usual activities as tolerated Diet: other (Follow diet recommended by surgery - Full liquid diet (no meat of any sort) and protein shakes (3 daily) for nutritional supplement until further notice)
[2018-01-26 19:09] VITALS: BP 114/63
== END 2018-01-26 19:46 | disposition home or self-care (01) | DRG 375 ==
LOC: 3ANU
PROVIDERS: ADMIT Hospitalist; ATTEND Student in an Organized Health Care Education/Training Program
PROC: IRLIVER (2018-01-26 12:00)

== ENCOUNTER 2018-01-31 11:54 | Inpatient (IN) ==
[2018-01-31] MEDS ORDERED: Ondansetron 4 MG/2 ML VIAL IVP ONE (12:27)
[2018-01-31] MEDS ORDERED: 0.9 % Sodium Chloride 1,000 ML IVC ONE (12:27)
[2018-01-31 12:39] LABS: Bilirubin,Urine Small (Negative); Blood,Urine Negative (Negative); Glucose,Urine (UA) Normal (Normal); Ketones,Urine Negative (Negative); Leukocyte Esterase,Urine Small (Negative); Nitrite,Urine Negative (Negative); PH,Urine 5.5 pH Units (5.0-8.0); Protein,Urine Trace mg/dL (Neg-Trace); Specific Gravity,Urine 1.021 (1.010-1.025); Urobilinogen,Urine Normal (Normal)
[2018-01-31 12:42] LABS: Bacteria,Urine None Seen per hpf (None-Few); Hyaline Casts,Urine Few per lpf (None-Few); Squamous Epithelial Cell,Urine Many per lpf (None-Few)
[2018-01-31 12:43] LABS: Clarity,Urine Slightly Hazy (Clear); Color,Urine Yellow (Yellow)
--- NOTE | 2018-01-31 13:42 | Emergency Department Note ---
Disposition Clinical Impression: SBO (small bowel obstruction) Disposition: Home, Self-Care Condition: Fair Time of Disposition: 16:50 General Adult HPI - General Chief complaint: ED Abdominal Pain Stated complaint: abdominal pain/vomiting Time Seen by Provider: 01/31/18 12:08 Source: patient Mode of arrival: ambulatory Limitations: no limitations Nursing Notes Reviewed: Yes Vital Signs Reviewed: Yes - History of Present Illness HPI Narrative: Patient is a 77-year-old male with a past medical history of colon cancer and partial small bowel obstruction presenting to the emergency department for the complaint of nausea and vomiting as well as abdominal pain started yesterday evening at approximately midnight. The patient states that he was recently discharged from the hospital with the diagnosis of colon cancer and a small bowel obstruction which she was treating at home conservatively with a soft diet and liquids. He states that he currently sees Dr. Deutsch for general surgery and the plan at this time is for him to meet with oncology and undergo a colonoscopy and they will consider performing a colectomy. She is told that if his symptoms present the weight is currently presenting these to come in to be reevaluated for worsening obstruction. Patient denies any fevers, chills. He did have one episode of vomiting which she states was tomato soup that he had prior and denies any bright red blood in the vomit. His last bowel movement was yesterday, and it was normal. Pain Scale: 8 - Related Data Home Medications Medication Instructions Recorded Confirmed Aspirin 81 mg PO DAILY 01/24/18 01/30/18 Cholecalciferol (D-3) [Vitamin D] 1,000 mg PO DAILY 01/24/18 01/30/18 Flaxseed Oil [[place]-3 Flaxseed Oil] 1,000 mg PO DAILY 01/24/18 01/30/18 Simvastatin [Zocor] 40 mg PO HS 01/24/18 01/30/18 SitaGLIPtin [Januvia] 25 mg PO DAILY 01/24/18 01/30/18 Amlodipine Besylate/Benazepril 1 cap PO DAILY 01/25/18 01/30/18 [Lotrel 10-40 mg Capsule] Previous Rx's Medication Instructions Recorded Lidocaine/Prilocaine [Emla] 1 appl TP AD #30 gm 01/30/18 Omeprazole [PriLOSEC] 20 mg PO BIDAC #30 cap 01/30/18 Ondansetron HCl [Zofran] 4 mg PO Q4H PRN #30 tablet 01/30/18 Prochlorperazine Maleate 10 mg PO Q6H PRN #30 tablet 01/30/18 [Compazine] Allergies Allergy/AdvReac Type Severity Reaction Status Date / Time No Known Drug Allergies Allergy Unknown None Verified 01/31/18 11:56 All systems ED: reviewed and negative except as stated. Review of Systems: As Per HPI Constitutional: Denies: fever, chills Cardiovascular: Denies: chest pain, palpitations Respiratory: Denies: cough, dyspnea Gastrointestinal: Reports: abdominal pain, nausea, vomiting. Denies: diarrhea, constipation, hematemesis, melena, hematochezia Genitourinary: Denies: urgency, dysuria Musculoskeletal: Denies: back pain, neck pain Integumentary: Denies: rash Past Medical History - Past Medical History Attestation: Yes The following information was validated with the patient. Medical history: Reports: arthritis, cancer, diabetes, hyperlipidemia, hypertension Surgical history: Reports: no surgical history Psychiatric history: Reports: no psych history - Social History Smoking Status: Former smoker Smokeless Tobacco Status: No Alcohol use: Reports: none Drug use: Reports: none Physical Exam CONSTITUTIONAL: Alert and oriented X3, well-nourished, well appearing, in no apparent distress. Vital signs are stable at this time. HEAD: Normocephalic; atraumatic. EYES: PERRL, no scleral icterus. NOSE: The nose is normal in appearance without rhinorrhea RESP: Normal chest excursion with respiration; breath sounds clear and equal bilaterally; no wheezes, rhonchi, or rales CARD: Regular rhythm, without murmurs, rub or gallop ABD: Non-distended; mild diffuse tendneress, soft,without rigidity, rebound or guarding SKIN: Normal for age and race; warm and dry; no apparent lesions - General Limitations: no limitations General appearance: alert Course Course Narrative: Plan at this time is order basic abdominal labs on this patient will start him with IV fluids and Zofran. We will also perform a CT of the abdomen and pelvis without IV contrast. - Reevaluation(s) Reevaluation #1: Patient states his symptoms have improved since being here anything to Zofran is helping him. CT of his abdomen and pelvis continues to show partial small bowel obstruction. This appears to be consistent with the patient's CT scan that was done approximately 6 days ago. Plan at this time is to consult with general surgery to develop a plan for the patient. I discussed with the patient the potential plan of him going home with a prescription for Zofran and the returning if his symptoms worsen again. States they were planning for surgery, however they wanted oncology's input as well as a colonoscopy performed before undergoing a colectomy and Dr. Deutsch is currently out of the office until next week. Time: 13:44 Reevaluation #2: I discussed the patient's case with the surgeon on-call Dr. Hubbard and he agrees to accept the patient. Patient will be admitted to the hospitalist service with Dr. Butcher. Dr. Hubbard requested an NG tube be placed. Time: 17:10 Vital Signs Temperature 97.6 F 01/31/18 11:56 Pulse Rate 100 01/31/18 11:56 Respiratory Rate 20 01/31/18 11:56 Blood Pressure 103/68 01/31/18 11:56 O2 Sat by Pulse Oximetry 96 01/31/18 11:56 Temperature 97.8 F 01/31/18 18:45 Pulse Rate 82 01/31/18 18:45 Respiratory Rate 15 01/31/18 18:45 Blood Pressure 115/70 01/31/18 18:45 O2 Sat by Pulse Oximetry 97 01/31/18 18:45 Oxygen Delivery Oxygen Delivery Room Air Medical Decision Making - Medical Records Medical records reviewed: Yes I reviewed the patient's medical records. - Lab Data Lab results reviewed: Yes I reviewed the patient's lab results. Result diagrams: 01/31/18 13:50 Lab Results 01/31/18 01/31/18 01/31/18 Range/Units 12:22 13:50 13:50 Sodium 140 (136-145) mEq/L Potassium 4.1 (3.5-5.1) mEq/L Chloride 110 H (98-107) mEq/L Carbon Dioxide 22 L (23-29) mEq/L BUN 28 H (8-23) mg/dL Creatinine 2.06 H (0.70-1.30) mg/dL Est GFR ( Amer) 38 L (> 60) Est GFR (Non-Af Amer) 31 L (> 60) BUN/Creatinine Ratio 14 (6-26) Glucose 119 H (70-105) mg/dL Calculated Osmolality 297 (280-300) Lactic Acid (0.5-2.2) mmol/L Calcium 8.5 L (8.6-10.3) mg/dL Total Bilirubin 0.8 (0.3-1.0) mg/dL Direct Bilirubin 0.2 (0.0-0.2) mg/dL Indirect Bilirubin 0.6 (0.0-1.2) mg/dL AST 26 (13-39) Units/L ALT 28 (7-52) Units/L Alkaline Phosphatase 85 (34-104) Units/L Serum Total Protein 6.3 L (6.4-8.9) g/dL Albumin 3.4 L (3.5-5.7) g/dL Globulin 2.9 (2.4-3.5) g/dL Albumin/Globulin Ratio 1.2 (1.1-2.2) Amylase 15 L (29-103) Units/L Lipase 41 (11-82) Units/L Urine Color Yellow (Yellow) Urine Clarity Slightly Hazy (Clear) Urine pH 5.5 (5.0-8.0) pH Units Ur Specific [place] 1.021 (1.010-1.025) Urine Protein Trace (Neg-Trace) mg/dL Urine Glucose (UA) Normal (Normal) mg/dL Urine Ketones Negative (Negative) mg/dL Urine Blood Negative (Negative) Urine Nitrite Negative (Negative) Urine Bilirubin Small H (Negative) Urine Urobilinogen Normal (Normal) mg/dL Ur Leukocyte Esterase Small H (Negative) Urine Microscopic RBC 5-15 H (0-3) per hpf Urine Microscopic WBC 5-15 H (0-3) per hpf Ur Squamous Epith Cells Many H (None-Few) per lpf Urine Bacteria None Seen (None-Few) per hpf Hyaline Casts Few (None-Few) per lpf Ur Culture Indicated? NO. (NO) Specimen Rejected Miscellaneous 01/31/18 Range/Units 15:48 Sodium (136-145) mEq/L Potassium (3.5-5.1) mEq/L Chloride (98-107) mEq/L Carbon Dioxide (23-29) mEq/L BUN (8-23) mg/dL Creatinine (0.70-1.30) mg/dL Est GFR ( Amer) (> 60) Est GFR (Non-Af Amer) (> 60) BUN/Creatinine Ratio (6-26) Glucose (70-105) mg/dL Calculated Osmolality (280-300) Lactic Acid 1.4 (0.5-2.2) mmol/L Calcium (8.6-10.3) mg/dL Total Bilirubin (0.3-1.0) mg/dL Direct Bilirubin (0.0-0.2) mg/dL Indirect Bilirubin (0.0-1.2) mg/dL AST (13-39) Units/L ALT (7-52) Units/L Alkaline Phosphatase (34-104) Units/L Serum Total Protein (6.4-8.9) g/dL Albumin (3.5-5.7) g/dL Globulin (2.4-3.5) g/dL Albumin/Globulin Ratio (1.1-2.2) Amylase (29-103) Units/L Lipase (11-82) Units/L Urine Color (Yellow) Urine Clarity (Clear) Urine pH (5.0-8.0) pH Units Ur Specific [place] (1.010-1.025) Urine Protein (Neg-Trace) mg/dL Urine Glucose (UA) (Normal) mg/dL Urine Ketones (Negative) mg/dL Urine Blood (Negative) Urine Nitrite (Negative) Urine Bilirubin (Negative) Urine Urobilinogen (Normal) mg/dL Ur Leukocyte Esterase (Negative) Urine Microscopic RBC (0-3) per hpf Urine Microscopic WBC (0-3) per hpf Ur Squamous Epith Cells (None-Few) per lpf Urine Bacteria (None-Few) per hpf Hyaline Casts (None-Few) per lpf Ur Culture Indicated? (NO) Specimen Rejected - Radiology Data Radiology results reviewed: Yes I reviewed the patient's radiology results. Abdomen/Pelvis CT 01/31/18 12:28 IMPRESSION: 1. Large cecal mass near the ileocecal valve compatible with colon carcinoma until proven otherwise. 2. The masses causing partial small bowel obstruction. 3. There is mesenteric adenopathy as well as numerous low-density liver lesions compatible with metastatic disease. 9 mm right lower lobe pulmonary nodule should be watched on subsequent exams as pulmonary metastases cannot be excluded. 4. Punctate bilateral nonobstructing kidney stones. 5. Cholelithiasis. 6. Colonic diverticulosis. 7. Calcified right-sided pleural plaques may be related to previous pleurodesis or hemothorax. The lack of disease on the left side makes asbestos related pleural disease unlikely. D/ / Santi Wilkinson MD / Santi Wilkinson MD Interpreting Provider: Santi Wilkinson MD Attestation Statement - Attestation Attestation: Patient was seen with resident physician. I reviewed the history, physical, assessment and plan, and agree with the findings. I also personally evaluated this patient and had [id number] time with this patient. 77-year-old male presents to the emergency Department chief complaint of abdominal pain and nausea. Patient has a diagnosis of colon cancer that is relatively recent. His been worked up for surgery and GI. Cancer was diagnosed as being metastatic. He also has had small bowel obstruction secondary to the tumor in his colon. He presents today because he said his surgeon told him to come back if he has worsening symptoms which she was having for the last 24 hours or so. On examination vital signs were fine. ENT is unremarkable. Heart normal. Lungs normal. Abdomen soft currently nontender with no distention. Extremities unremarkable. Neurologically intact. Skin no obvious rashes. ED course patient admits that he ate some he was not supposed to. With his history is partial small bowel obstructions his been encouraged to do a soft diet he says he did not do that around 9 PM. This resulted in his symptoms which she says now have since resolved. We did repeat a CT scan which shows a partial small bowel obstruction. We gave the patient Zofran which helped his nausea. We agree discussed the case with surgery to help direct disposition. They request and an additional CT with IV and oral contrast. This was performed and the radiologist called me to discuss the fact that he felt the findings were more consistent with a complete bowel obstruction. Because of the new cancer diagnosis we ended up admitting the patient to the internal medicine service with surgery consultation evaluation as well. Patient hemodynamically otherwise was stable. I agree with resident physician assessment and plan.
[2018-01-31] MEDS ORDERED: Isovue-370 500 ML INFUS..BTL IV ONE (14:06)
[2018-01-31 14:26] LABS: Albumin 3.4 g/dL (3.5-5.7); Albumin/Globulin Ratio 1.2 (1.1-2.2); Bilirubin,Direct 0.2 mg/dL (0.0-0.2); Bilirubin,Indirect 0.6 mg/dL (0.0-1.2); Bilirubin,Total 0.8 mg/dL (0.3-1.0); Calcium 8.5 mg/dL (8.6-10.3); Globulin 2.9 g/dL (2.4-3.5); Potassium 4.1 mEq/L (3.5-5.1); Total Protein 6.3 g/dL (6.4-8.9)
[2018-01-31] MEDS ORDERED: Ondansetron 4 MG/2 ML VIAL IVP PRN (18:39)
[2018-01-31] MEDS ORDERED: HYDROcodone/Acet 5-217 mg/10mL 10 ML UDC PO PRN (18:40)
[2018-01-31] MEDS ORDERED: Naloxone 0.4 MG/ML INJ IVP PRN (18:42)
[2018-01-31] MEDS ORDERED: *HR* Heparin 5,000 UNIT/ML VIAL SQ SCH (18:45)
--- NOTE | 2018-01-31 19:01 | Internal Med History&Physical ---
<Rick Perez J - Last Filed: 01/31/18 19:47> Date of Encounter: 01/31/18 Time of Encounter: 18:49 Internal Medicine - H&P: HPI Chief complaint: nausea, vomiting, abdominal pain; high-grade partial obstruction versus tot Admitted From: Home Plans for Post Hospital Care: Home History of present illness: Mr. Mcfarland is a 77 year old male with a PMH of arthritis, cancer, diabetes, hyperlipidemia, and hypertension. He presents to [facility] ED today with abdominal pain, nausea, vomiting which began yesterday evening around midnight. Patient has a recent diagnosis of metastatic colon cancer with a mass in the region of the cecum. Patient was recently admitted due to nausea and vomiting and was found to have colon cancer during this admission. He was sent home with conservative treatment and informed that he should return if symptoms worsen. He has c/o nausea, vomiting, diffuse abdominal pain but reports that it is worse in the RLQ, and LLQ, weight loss, and night sweats. He reports that his last bowel movement was yesterday. CT abdomen and pelvis today reveals a high- grade partial obstruction complete obstruction. Past Med Surg Social Fam HX - Past Medical History Medical history: arthritis, cancer, diabetes, hyperlipidemia, hypertension Psychiatric history: no psych history - Past Surgical History Surgical History: no surgical history - Social History Smoking Status: Former smoker Smokeless Tobacco Status: No Alcohol use: none Drug use: none - Family History Mother History Unknown: Yes Internal Medicine - H&P: Meds Aspirin 81 mg PO DAILY 01/24/18 [History] Cholecalciferol (D-3) [Vitamin D] 1,000 mg PO DAILY 01/24/18 [History] Flaxseed Oil [[place]-3 Flaxseed Oil] 1,000 mg PO DAILY 01/24/18 [History] Simvastatin [Zocor] 40 mg PO HS 01/24/18 [History] SitaGLIPtin [Januvia] 25 mg PO DAILY 01/24/18 [History] Amlodipine Besylate/Benazepril [Lotrel 10-40 mg Capsule] 1 cap PO DAILY [History] Lidocaine/Prilocaine [Emla] 1 appl TP AD #30 gm 01/30/18 [Rx] Omeprazole [PriLOSEC] 20 mg PO BIDAC #30 cap 01/30/18 [Rx] Ondansetron HCl [Zofran] 4 mg PO Q4H PRN #30 tablet 01/30/18 [Rx] Prochlorperazine Maleate [Compazine] 10 mg PO Q6H PRN #30 tablet 01/30/18 [Rx] 3 Allergy/AdvReac Type Severity Reaction Status Date / Time No Known Drug Allergies Allergy Unknown None Verified 01/31/18 11:56 All Systems PM: A 10-system review of systems was performed and is negative for pertinent findings except as documented above in the HPI. Review of systems: REVIEW OF SYSTEMS GENERAL: Negative for any nausea, vomiting, fevers, chills, or. Positive for weight loss, fatigue, night sweats, anorexia NEUROLOGIC: Negative for any blurry vision, blind spots, double vision, facial asymmetry, dysphagia, dysarthria, hemiparesis, hemisensory deficits, vertigo, ataxia. HEENT: Negative for any head trauma, neck trauma, neck stiffness, photophobia, phonophobia, sinusitis, rhinitis. CARDIAC: Negative for any chest pain, dyspnea on exertion, paroxysmal nocturnal dyspnea, peripheral edema. PULMONARY: Negative for any shortness of breath, wheezing, COPD, or TB exposure. GASTROINTESTINAL: Negative for any bright red blood per rectum, melena. Positive for diffuse abdominal pain, nausea and vomiting GENITOURINARY: Negative for any dysuria, hematuria, incontinence. INTEGUMENTARY: Negative for any rashes, cuts, insect bites. RHEUMATOLOGIC: Negative for any joint pains, photosensitive rashes, history of vasculitis or kidney problems. HEMATOLOGIC: Negative for any abnormal bruising, frequent infections or bleeding. - Constitutional Vitals: Temp Pulse Resp BP Pulse Ox 97.6 F 90 14 106/79 99 01/31/18 11:56 01/31/18 17:57 01/31/18 17:57 01/31/18 17:57 01/31/18 17:57 General appearance: Present: cooperative, A&O X 3, no acute distress, answers questions appropriately Exam: PHYSICAL EXAMINATION: GENERAL: The patient is an ill appearing male in mild distress due to nausea and abdominal discomfort. He is alert and oriented x3. HEENT: Head is normocephalic and atraumatic. Extraocular muscles are intact. Pupils are equal, round, and reactive to light and accommodation.. NECK: Supple. No carotid bruits. No lymphadenopathy or thyromegaly. LUNGS: Clear to auscultation. HEART: Regular rate and rhythm without murmur. ABDOMEN: Soft, and nondistended. Positive bowel sounds. No hepatosplenomegaly was noted. Positive for diffuse abdominal tenderness however, noted to be worse in right and left lower quadrant EXTREMITIES: No swelling or tenderness noted in extremities NEUROLOGIC: No facial droop or slurred speech SKIN: No ulceration rashes or lesions Internal Med - H&P Results - Labs CBC & Chem 7: 01/31/18 13:50 - Impressions Impressions Abdomen/Pelvis CT 01/31/18 12:28 IMPRESSION: 1. Large cecal mass near the ileocecal valve compatible with colon carcinoma until proven otherwise. 2. The masses causing partial small bowel obstruction. 3. There is mesenteric adenopathy as well as numerous low-density liver lesions compatible with metastatic disease. 9 mm right lower lobe pulmonary nodule should be watched on subsequent exams as pulmonary metastases cannot be excluded. 4. Punctate bilateral nonobstructing kidney stones. 5. Cholelithiasis. 6. Colonic diverticulosis. 7. Calcified right-sided pleural plaques may be related to previous pleurodesis or hemothorax. The lack of disease on the left side makes asbestos related pleural disease unlikely. D/ / Santi Wilkinson MD / Santi Wilkinson MD Interpreting Provider: Santi Wilkinson MD Abdomen/Pelvis CT 01/31/18 15:45 IMPRESSION: Stable mass seen at the ileocecal valve with surrounding adenopathy. This appears to be causing a either a high-grade partial obstruction or complete obstruction. Contrast does not reach this level and is contained within the proximal small bowel. Multiple metastatic lesions seen within the liver. The remainder the exam is unchanged from earlier today. D/ / 01/31/2018 16:19:47 Alexandro Fernandez MD / tanya Interpreting Provider: Alexandro Fernandez MD - Assessment and plan (1) Acute kidney injury Current Visit: Yes Status: Acute Assessment and plan: Acute on chronic kidney injury, secondary to decreased oral intake, nausea and vomiting. History of stage IV CKD. Denies decreased urinary output Avoid nephrotoxins IV fluids Serum creatinine in the morning (2) Carcinoma of cecum Current Visit: Yes Status: Acute Assessment and plan: Recent diagnosis of carcinoma of the cecum. CT of abdomen and pelvis on 01/25 shows findings suggestive of the presence of abnormal soft tissue mass in the proximal ascending colon centered in the region of the ileocecal valve. He is following with [place] oncology Dr. Garcia. The patient is been informed that he is stage IV and that this cannot be cared Per Review of oncology notes it appears as if chemotherapy is being taken into consideration (3) Metastatic colon cancer to liver Current Visit: Yes Status: Acute (4) Diabetes Current Visit: Yes Status: Chronic Assessment and plan: History of diabetes, patient will be nothing by mouth due to complete bowel obstruction. 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 HGB last visit 7.8. Denies any melena or hematochezia or hematemesis. Continue monitor for bleeding. CBC D in the morning Qualifiers: Anemia type: unspecified type Qualified Code(s): D64.9 - Anemia, unspecified (7) DVT prophylaxis Current Visit: Yes Status: Acute Assessment and plan: EPCD's (8) SBO (small bowel obstruction) Current Visit: Yes Status: Acute Assessment and plan: Presents today with abdominal pain, nausea and vomiting. Has a h/o metastatic colon carcinoma. He was recently admitted and treated for partial small bowel obstruction. He was sent home with conservative treatment. Todays CT abdomen/pelvis reveals a high-grade bowel obstruction vs complete obstruction. Plan: Continue the NG tube to LIWS-Will watch the 24 hr trend of NG drainage NPO diet Continue IVF Pain management and supportive care- Roxanol and fentanyl IV push, antiemetics OOTB and ambulate with assistance at least three times a day continue to monitor the patient closely - Time Spent With Patient Total time spent is greater than 50% in coordination of care (as documented) at patient's floor/unit and/or counseling patient: Greater than 35 minutes <LeighShruthi - Last Filed: 02/01/18 02:45> Date of Encounter: 01/31/18 Internal Medicine - H&P: HPI History of present illness: Mr. Mcfarland is a 77 year old male All Systems PM: A 10-system review of systems was performed and is negative for pertinent findings except as documented above in the HPI. - Constitutional Vitals: Temp Pulse Resp BP Pulse Ox 99.0 F 88 15 135/65 96 01/31/18 23:53 01/31/18 23:53 01/31/18 23:53 01/31/18 23:53 01/31/18 23:53 Internal Med - H&P Results - Labs CBC & Chem 7: 01/31/18 13:50 - Attending Attestation I have personally performed a face to face evaluation on this patient. I have reviewed and agree with the care plan [employer] Rick Perez. History and Exam by me shows: Mr. Mcfarland is a 77 year old male with a PMH of arthritis, diabetes, hyperlipidemia, hypertension and recent diagnosis of metastatic colon cancer with a mass in the region of the cecum pt presented to [facility] ED today with abdominal pain, nausea, vomiting which began yesterday evening around midnight. His CT of abd showed High grade SBO. NG tube placed in the ER. pt states he is feeling lot better now Gen: A,A< O x 3 Chest: Diminishes BS b/l Abd: Soft, NT, Hypoactive BS a/p 1. Acute SBP 2. Cecal mass Surgery consulted NG tube placement IV hydration - Assessment and plan (1) Carcinoma of cecum Current Visit: Yes Status: Acute (2) Hypertension Current Visit: Yes Status: Chronic Qualifiers: Hypertension type: essential hypertension Qualified Code(s): I10 - Essential (primary) hypertension (3) Diabetes Current Visit: Yes Status: Chronic Qualifiers: Diabetes mellitus type: type 2 Diabetes mellitus termite control service representative insulin use: without nursing home use Diabetes mellitus complication status: without complication Qualified Code(s): E11.9 - Type 2 diabetes mellitus without complications (4) DVT prophylaxis Current Visit: Yes Status: Acute (5) Anemia Current Visit: Yes Status: Chronic Qualifiers: Anemia type: unspecified type Qualified Code(s): D64.9 - Anemia, unspecified (6) Acute kidney injury Current Visit: Yes Status: Acute (7) Metastatic colon cancer to liver Current Visit: Yes Status: Acute (8) SBO (small bowel obstruction) Current Visit: Yes Status: Acute - Time Spent With Patient Total time spent is greater than 50% in coordination of care (as documented) at patient's floor/unit and/or counseling patient:
[2018-01-31] MEDS ORDERED: *HR* FentaNYL (PF) 100 MCG/2 ML VIAL IVP PRN (19:40)
[2018-01-31] MEDS ORDERED: OXYCODONE Oral CONC 10 MG/0.5 ML ORAL.SYG SL PRN ×2 (19:42→21:45)
[2018-01-31] MEDS: 0.9 % Sodium Chloride 1,000 ML IVC SCH (19:52)
[2018-02-01] MEDS: 0.9 % Sodium Chloride 1,000 ML IVC SCH (07:51)
[2018-02-01 07:57] LABS: Basophils % 0.1 %; Eosinophils # 0.2 K/mcL (0.0-0.6); Eosinophils % 2.3 %; Hemoglobin 8.5 g/dL (12.9-16.9); Immature Granulocytes % 0.4 % (0-4); Lymphocytes % 13.6 %; Mean Corpuscular HGB Conc 32.7 g/dL (31.6-35.5); Mean Corpuscular Hemoglobin 25.9 pg (28.0-33.3); Mean Corpuscular Volume 79.3 fL (83.0-100.0); Mean Platelet Volume 10.8 fL (9.4-12.4); Monocytes % 13.6 %; Neutrophils # 4.9 K/mcL (1.6-8.9); Platelet Count 245 K/mcL (140-400); Red Blood Count 3.28 M/mcL (4.19-5.50); Red Cell Distribution Width 15.2 % (11.5-14.5)
--- NOTE | 2018-02-01 09:03 | General Surgery Consult Note ---
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 I have recommended resection or bypass. The family is initially very hesitant about this approach once to stick with the previous plan of colonoscopy followed by chemotherapy. Certainly, this is a preferred approach for patients without complete obstruction at the level of the primary. However, the situation is changed. The patient's family will discuss this and make a decision on how to proceed in the next day or so. History of Present Illness Consult date: 01/31/18 Reason for consult: other (Vomiting) History of present illness: The patient is a 77-year-old male recently seen in consultation by hematology oncology. The patient has multiple liver metastasis as well as a large retroperitoneal mass and a mass at the ileocecal junction. After an episode of vomiting he presented to the emergency room with complaints of abdominal pain. A follow-up CAT scan was suggestive of high-grade or complete bowel obstruction at the level of the primary tumor. The patient had been seen in consultation by Dr. Deutsch. A colonoscopy was planned. 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 Further bowel preparation is impossible. I had an initial consultation with the family on surgical resection or bypass of this area. They were very disappointed in this and felt like that the surgical plan was far too aggressive and that oncology's plan for chemotherapy should be followed. Dr. Deutsch's plan for colonoscopy should be followed. I had initial counseling session with them that the situation is changed and the patient appears to have high-grade or complete obstruction at the level of primary and this is now the primary focus of treatment. They will discuss this among the family and a nasogastric tube will be placed to treat his symptomatic obstruction. Past Med Surg Social Fam HX - Past Medical History Medical history: arthritis, cancer, diabetes, hyperlipidemia, hypertension Psychiatric history: no psych history - Past Surgical History Surgical History: no surgical history - Social History Smoking Status: Former smoker Smokeless Tobacco Status: No Alcohol use: none Drug use: none - Family History Mother History Unknown: Yes Medications and Allergies Aspirin 81 mg PO DAILY 01/24/18 [History] Cholecalciferol (D-3) [Vitamin D] 1,000 mg PO DAILY 01/24/18 [History] Flaxseed Oil [[place]-3 Flaxseed Oil] 1,000 mg PO DAILY 01/24/18 [History] Simvastatin [Zocor] 40 mg PO HS 01/24/18 [History] SitaGLIPtin [Januvia] 25 mg PO DAILY 01/24/18 [History] Amlodipine Besylate/Benazepril [Lotrel 10-40 mg Capsule] 1 cap PO DAILY [History] Lidocaine/Prilocaine [Emla] 1 appl TP AD #30 gm 01/30/18 [Rx] Omeprazole [PriLOSEC] 20 mg PO BIDAC #30 cap 01/30/18 [Rx] Ondansetron HCl [Zofran] 4 mg PO Q4H PRN #30 tablet 01/30/18 [Rx] Prochlorperazine Maleate [Compazine] 10 mg PO Q6H PRN #30 tablet 01/30/18 [Rx] 3 Allergy/AdvReac Type Severity Reaction Status Date / Time No Known Drug Allergies Allergy Unknown None Verified 01/31/18 11:56 Review of Systems All systems PM: The remainder of the systems were reviewed and are negative General Surgery Exam Initial Vital Signs Temp Pulse Resp BP Pulse Ox 97.6 F 100 20 103/68 96 01/31/18 11:56 01/31/18 11:56 01/31/18 11:56 01/31/18 11:56 01/31/18 11:56 - General physical appearance well developed, well nourished, moderate distress, chronically ill, other ( Evidence of recent weight loss) - Respiratory normal expansion, normal respiratory effort, clear to percussion, clear to auscultation - Cardiovascular Cardiovascular exam: Present: RRR, no murmurs/rubs/gallops - Abdomen Abdomen general surgery: Present: bowel sounds present, distended, tender Abdominal Tenderness: Present: RLQ - Neurologic Present: CN 2-12 grossly intact, normal coordination, normal sensation - Psychiatric Psychiatric general surgery: Present: appropriate, oriented to person, oriented to place, oriented to time, speech is normal, memory intact Exam Initial Vital Signs Temp Pulse Resp BP Pulse Ox 97.6 F 100 20 103/68 96 01/31/18 11:56 01/31/18 11:56 01/31/18 11:56 01/31/18 11:56 01/31/18 11:56 Results - Labs 02/01/18 07:46 02/01/18 06:31 Abnormal lab results RBC 3.28 M/mcL (4.19-5.50) L 02/01/18 07:46 Hgb 8.5 g/dL (12.9-16.9) L 02/01/18 07:46 Hct 26.0 % (37.5-50.1) L 02/01/18 07:46 MCV 79.3 fL (83.0-100.0) L 02/01/18 07:46 MCH 25.9 pg (28.0-33.3) L 02/01/18 07:46 RDW 15.2 % (11.5-14.5) H 02/01/18 07:46 Chloride 109 mEq/L (98-107) H 02/01/18 06:31 Carbon Dioxide 22 mEq/L (23-29) L 02/01/18 06:31 BUN 31 mg/dL (8-23) H 02/01/18 06:31 Creatinine 2.10 mg/dL (0.70-1.30) H 02/01/18 06:31 Est GFR ( Amer) 37 (> 60) L 02/01/18 06:31 Est GFR (Non-Af Amer) 31 (> 60) L 02/01/18 06:31 Glucose 109 mg/dL (70-105) H 02/01/18 06:31 POC Glucose 102 mg/dL (70-99) H 02/01/18 05:36 Calculated Osmolality 305 (280-300) H 02/01/18 06:31 Calcium 8.0 mg/dL (8.6-10.3) L 02/01/18 06:31 Serum Total Protein 6.3 g/dL (6.4-8.9) L 01/31/18 13:50 Albumin 3.4 g/dL (3.5-5.7) L 01/31/18 13:50 Amylase 15 Units/L (29-103) L 01/31/18 13:50 Urine Bilirubin Small (Negative) H 01/31/18 12:22 Ur Leukocyte Esterase Small (Negative) H 01/31/18 12:22 Urine Microscopic RBC 5-15 per hpf (0-3) H 01/31/18 12:22 Urine Microscopic WBC 5-15 per hpf (0-3) H 01/31/18 12:22 Ur Squamous Epith Cells Many per lpf (None-Few) H 01/31/18 12:22 Diabetes panel 02/01/18 Range/Units 06:31 Sodium 144 (136-145) mEq/L Potassium 4.0 (3.5-5.1) mEq/L Chloride 109 H (98-107) mEq/L Carbon Dioxide 22 L (23-29) mEq/L BUN 31 H (8-23) mg/dL Creatinine 2.10 H (0.70-1.30) mg/dL Glucose 109 H (70-105) mg/dL Calcium 8.0 L (8.6-10.3) mg/dL Calcium panel 02/01/18 Range/Units 06:31 Calcium 8.0 L (8.6-10.3) mg/dL Pituitary panel 02/01/18 Range/Units 06:31 Sodium 144 (136-145) mEq/L Potassium 4.0 (3.5-5.1) mEq/L Chloride 109 H (98-107) mEq/L Carbon Dioxide 22 L (23-29) mEq/L BUN 31 H (8-23) mg/dL Creatinine 2.10 H (0.70-1.30) mg/dL Glucose 109 H (70-105) mg/dL Calcium 8.0 L (8.6-10.3) mg/dL Adrenal panel 02/01/18 Range/Units 06:31 Sodium 144 (136-145) mEq/L Potassium 4.0 (3.5-5.1) mEq/L Chloride 109 H (98-107) mEq/L Carbon Dioxide 22 L (23-29) mEq/L BUN 31 H (8-23) mg/dL Creatinine 2.10 H (0.70-1.30) mg/dL Glucose 109 H (70-105) mg/dL Calcium 8.0 L (8.6-10.3) mg/dL All other labs normal. - Imaging CT scan - abdomen: image reviewed (I personally reviewed the CAT scan results. 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 Surgical resection and our bypass is recommended.) Consult Discharge Plan - Plan Referrals: Reggie Reynoso MD [Primary Care Provider] -
--- NOTE | 2018-02-01 11:22 | General Surgery Progress Note ---
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 I have recommended resection or bypass. The family is initially very hesitant about this approach once to stick with the previous plan of colonoscopy followed by chemotherapy. Certainly, this is a preferred approach for patients without complete obstruction at the level of the primary. However, the situation is changed. The patient's family will discuss this and make a decision on how to proceed in the next day or so. 02/01/2018. The patient has high-grade partial or complete bowel obstruction at the ileocolic segment. 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 I have recommended surgical resection or bypass. The patient's family would like to continue care with Dr. Rudolph or Dr. Gonzales. I will make those arrangements tonight or tomorrow. Subjective Narrative: The head nurse on the floor was able to get a message to me that the patient's family would like Dr. uRdolph or Dr. Gonzales to continue Dr. Deutsch's plan for care I think this is completely reasonable and I will make those arrangements later today or tomorrow morning. Overnight the patient had 450 mL out of the nasogastric tube and his nausea is largely resolved. There is no vomiting. He appears to have a completely obstructing ileocecal mass. I have recommended surgical resection or bypass Objective Vital Signs - Last 8 Hours Temp Pulse Resp BP Pulse Ox 02/01/18 11:04 97.7 F 72 18 123/65 98 02/01/18 07:30 97 02/01/18 07:05 98.1 F 71 18 127/69 97 02/01/18 05:37 97.9 F 77 15 131/68 97 Intake and Output 01/31/18 02/01/18 02/01/18 23:59 07:59 15:59 Intake Total 0 / 0 1000 / 1000 0 / 0 Output Total 650 / 650 125 / 125 500 / 500 Balance -650 / -650 875 / 875 -500 / -500 Intake: IV Fluids 1000 / 1000 0.9 % Sodium Chloride 1,000 ML 1000 / 1000 @ 100 mls/hr IVC .Q[facility]H [facility] Rx#: [id number] Oral 0 / 0 0 / 0 0 / 0 Output: Urine 300 / 300 125 / 125 300 / 300 Gastric Drainage 350 / 350 200 / 200 Other: Meal npo Weight 109 kg 109.3 kg Blood Glucose* 125 102 96 Patient Weight 02/01/18 23:59 Weight 109.3 kg - General physical appearance well developed, well nourished, other (Evidence of recent weight loss) - Respiratory normal expansion, normal respiratory effort, clear to percussion, clear to auscultation - Cardiovascular Cardiovascular exam: Present: RRR, no murmurs/rubs/gallops - Abdomen Abdomen: Present: bowel sounds present, non tender, distended - Neurologic normal coordination, normal sensation - Psychiatric oriented to time, oriented to person, oriented to place, speech is normal, memory intact - Labs 02/01/18 07:46 02/01/18 06:31 Diabetes panel 02/01/18 Range/Units 06:31 Sodium 144 (136-145) mEq/L Potassium 4.0 (3.5-5.1) mEq/L Chloride 109 H (98-107) mEq/L Carbon Dioxide 22 L (23-29) mEq/L BUN 31 H (8-23) mg/dL Creatinine 2.10 H (0.70-1.30) mg/dL Glucose 109 H (70-105) mg/dL Calcium 8.0 L (8.6-10.3) mg/dL Calcium panel 02/01/18 Range/Units 06:31 Calcium 8.0 L (8.6-10.3) mg/dL Pituitary panel 02/01/18 Range/Units 06:31 Sodium 144 (136-145) mEq/L Potassium 4.0 (3.5-5.1) mEq/L Chloride 109 H (98-107) mEq/L Carbon Dioxide 22 L (23-29) mEq/L BUN 31 H (8-23) mg/dL Creatinine 2.10 H (0.70-1.30) mg/dL Glucose 109 H (70-105) mg/dL Calcium 8.0 L (8.6-10.3) mg/dL Adrenal panel 02/01/18 Range/Units 06:31 Sodium 144 (136-145) mEq/L Potassium 4.0 (3.5-5.1) mEq/L Chloride 109 H (98-107) mEq/L Carbon Dioxide 22 L (23-29) mEq/L BUN 31 H (8-23) mg/dL Creatinine 2.10 H (0.70-1.30) mg/dL Glucose 109 H (70-105) mg/dL Calcium 8.0 L (8.6-10.3) mg/dL Consult Discharge Plan - Plan Referrals: Reggie Reynoso MD [Primary Care Provider] -
--- NOTE | 2018-02-01 12:38 | Internal Med Progress Note ---
Date of Encounter: 02/01/18 Time of Encounter: 10:25 - Assessment and plan (1) SBO (small bowel obstruction) Current Visit: Yes Status: Acute Assessment and plan: Patient has been recommended surgery but patient wishes for conservative management. In the meantime continue NG tube to low intermittent suction. Continue IV fluids. Monitor vitals. Will get KUB x-ray. High risk for complications. (2) Carcinoma of cecum Current Visit: Yes Status: Acute Assessment and plan: Follow-up with oncology as outpatient. Surgery also following at this time for small bowel obstruction. (3) Hypertension Current Visit: Yes Status: Chronic Assessment and plan: Blood pressure is well controlled. Qualifiers: Hypertension type: essential hypertension Qualified Code(s): I10 - Essential (primary) hypertension (4) Diabetes Current Visit: Yes Status: Chronic Assessment and plan: Normal blood sugars. We will continue to monitor. Qualifiers: Diabetes mellitus type: type 2 Diabetes mellitus fpc insulin use: without fpc use Diabetes mellitus complication status: with kidney complications Diabetes mellitus complication detail: with chronic kidney disease Chronic kidney disease stage: stage 3 (moderate) Qualified Code(s): E11.22 - Type 2 diabetes mellitus with diabetic chronic kidney disease; N18.3 - Chronic kidney disease, stage 3 (moderate); N18.3 - Chronic kidney disease, stage 3 (moderate) (5) DVT prophylaxis Current Visit: Yes Status: Acute Assessment and plan: On SCDs (6) Anemia Current Visit: Yes Status: Chronic Assessment and plan: Likely due to underlying malignancy. Hemoglobin 8.5 today. We will continue to monitor blood counts. Qualifiers: Anemia type: unspecified type Qualified Code(s): D64.9 - Anemia, unspecified (7) Acute kidney injury Current Visit: Yes Status: Acute Assessment and plan: Patient has chronic kidney disease. Continue IV fluids. Monitor renal function closely. (8) Metastatic colon cancer to liver Current Visit: Yes Status: Acute Assessment and plan: Management as above. - Time Spent With Patient Total time spent is greater than 50% in coordination of care (as documented) at patient's floor/unit and/or counseling patient: - Subjective Interval history: Patient is awake and alert. Appears comfortable. He reports that his abdominal pain is improving. Has NG tube in place with low intermittent suction. He reports that he passed flatus this morning. - Constitutional Vitals: Temp Pulse Resp BP Pulse Ox 97.7 F 72 18 123/65 98 02/01/18 11:04 02/01/18 11:04 02/01/18 11:04 02/01/18 11:04 02/01/18 11:04 General appearance: Present: cooperative, A&O X 3, no acute distress, answers questions appropriately - Neck Neck exam general surgery: Present: supple, trachea midline. Absent: lymphadenopathy - Respiratory Respiratory exam: Present: CTAB. Absent: accessory muscle use, rales, rhonchi, wheezes - Cardiovascular Cardiovascular exam: Present: RRR, +S1, +S2. Absent: diastolic murmur, gallop, rubs, systolic murmur - GI/Abdominal GI/Abdominal exam: Present: diminished bowel sounds, distended, soft, no peritoneal signs. Absent: tenderness - Extremities Exam Extremities exam: Present: warm, radial pulses palpable and symmetrical. Absent : calf tenderness, cyanotic, pedal edema - Neurological Exam Neurological exam: Present: CN II-XII intact, oriented X3, no focal deficits. Absent: facial droop, speech deficit - Skin Skin exam: Present: dry, intact Internal Medicine: Result - Labs CBC & Chem 7: 02/01/18 07:46 02/01/18 06:31 Labs: Short CBC 02/01/18 Range/Units 07:46 WBC 7.1 (4.3-11.1) K/mcL Hgb 8.5 L (12.9-16.9) g/dL Hct 26.0 L (37.5-50.1) % Plt Count 245 (140-400) K/mcL Neutrophils # 4.9 (1.6-8.9) K/mcL BMP 02/01/18 06:31 Sodium 144 Potassium 4.0 Chloride 109 H Carbon Dioxide 22 L BUN 31 H Creatinine 2.10 H Glucose 109 H Calcium 8.0 L Consult Discharge Plan - Plan Referrals: Reggie Reynoso MD [Primary Care Provider] -
[2018-02-01] MEDS: Ringers Solution, Lactated 1,000 ML IVC SCH (14:55)
[2018-02-02] MEDS: Ringers Solution, Lactated 1,000 ML IVC SCH ×3 (01:00→21:00)
[2018-02-02 05:12] LABS: Basophils % 0.4 %; Eosinophils # 0.2 K/mcL (0.0-0.6); Eosinophils % 4.5 %; Hematocrit 25.3 % (37.5-50.1); Immature Granulocytes % 0.2 % (0-4); Lymphocytes # 0.7 K/mcL (0.6-4.6); Lymphocytes % 13.6 %; Mean Corpuscular HGB Conc 31.6 g/dL (31.6-35.5); Mean Corpuscular Hemoglobin 25.5 pg (28.0-33.3); Mean Corpuscular Volume 80.6 fL (83.0-100.0); Mean Platelet Volume 10.4 fL (9.4-12.4); Monocytes # 0.8 K/mcL (0.0-1.3); Monocytes % 14.3 %; Neutrophils # 3.6 K/mcL (1.6-8.9); Platelet Count 224 K/mcL (140-400); Red Blood Count 3.14 M/mcL (4.19-5.50); Red Cell Distribution Width 15.4 % (11.5-14.5)
[2018-02-02 05:22] LABS: Calcium 8.2 mg/dL (8.6-10.3); Potassium 3.8 mEq/L (3.5-5.1)
--- NOTE | 2018-02-02 10:13 | Internal Med Progress Note ---
Date of Encounter: 02/02/18 Time of Encounter: 09:45 - Assessment and plan (1) SBO (small bowel obstruction) Current Visit: Yes Status: Acute Assessment and plan: High-grade obstruction. Surgery recommends resection or bypass. However patient wants to consider colonoscopy as previously discussed. Requesting a different surgeons opinion today. We will follow recommendations. Continue NG tube to low intermittent suction. Supportive care. IV fluids. Monitor vital signs. (2) Carcinoma of cecum Current Visit: Yes Status: Acute Assessment and plan: With acute obstruction. Surgery following. (3) Hypertension Current Visit: Yes Status: Chronic Assessment and plan: Blood pressure is well controlled at this time. We will continue to monitor. Qualifiers: Hypertension type: essential hypertension Qualified Code(s): I10 - Essential (primary) hypertension (4) Diabetes Current Visit: Yes Status: Chronic Assessment and plan: Blood sugars are well controlled. Patient remains nothing by mouth. Not requiring any insulin. Qualifiers: Diabetes mellitus type: type 2 Diabetes mellitus terminal carman insulin use: without [facility] use Diabetes mellitus complication status: with kidney complications Diabetes mellitus complication detail: with chronic kidney disease Chronic kidney disease stage: stage 3 (moderate) Qualified Code(s): E11.22 - Type 2 diabetes mellitus with diabetic chronic kidney disease; N18.3 - Chronic kidney disease, stage 3 (moderate); N18.3 - Chronic kidney disease, stage 3 (moderate) (5) Anemia Current Visit: Yes Status: Chronic Assessment and plan: Likely due to colorectal cancer. Hemoglobin 8 today. Qualifiers: Anemia type: iron deficiency Iron deficiency anemia type: chronic blood loss Qualified Code(s): D50.0 - Iron deficiency anemia secondary to blood loss (chronic) (6) Acute kidney injury Current Visit: Yes Status: Acute Assessment and plan: Improving. Creatinine 1.77 today. (7) Metastatic colon cancer to liver Current Visit: Yes Status: Acute Assessment and plan: Follow-up with oncology after discharge (8) DVT prophylaxis Current Visit: Yes Status: Acute Assessment and plan: Patient is on SCDs at this time. Continue not on medical anticoagulation due to anemia and chronic blood loss due to colorectal cancer. - Time Spent With Patient Total time spent is greater than 50% in coordination of care (as documented) at patient's floor/unit and/or counseling patient: - Subjective Interval history: Patient not passing flatus and has not had a bowel movement. NG tube in place and draining bilious fluid. Patient has had 750 mL output yesterday. 200 mL so far this morning. Continues to have abdominal distention. Denies any significant abdominal pain - Constitutional Vitals: Temp Pulse Resp BP Pulse Ox 98.8 F 66 18 108/60 96 02/02/18 07:33 02/02/18 07:33 02/02/18 07:33 02/02/18 07:33 02/02/18 07:33 General appearance: Present: cooperative, A&O X 3, no acute distress, answers questions appropriately - ENT Additional comments: NG tube in place - Neck Neck exam general surgery: Present: supple, trachea midline. Absent: lymphadenopathy - Respiratory Respiratory exam: Present: CTAB. Absent: accessory muscle use, rales, rhonchi, wheezes - Cardiovascular Cardiovascular exam: Present: RRR, +S1, +S2. Absent: diastolic murmur, gallop, rubs, systolic murmur - GI/Abdominal GI/Abdominal exam: Present: diminished bowel sounds, distended, soft, no peritoneal signs. Absent: tenderness - Extremities Exam Extremities exam: Present: warm, radial pulses palpable and symmetrical. Absent : calf tenderness, cyanotic, pedal edema - Neurological Exam Neurological exam: Present: alert, oriented X3, no focal deficits. Absent: facial droop, speech deficit Internal Medicine: Result - Labs CBC & Chem 7: 02/02/18 04:31 02/02/18 04:31 Labs: Short CBC 02/02/18 Range/Units 04:31 WBC 5.4 (4.3-11.1) K/mcL Hgb 8.0 L (12.9-16.9) g/dL Hct 25.3 L (37.5-50.1) % Plt Count 224 (140-400) K/mcL Neutrophils # 3.6 (1.6-8.9) K/mcL BMP 02/02/18 04:31 Sodium 141 Potassium 3.8 Chloride 110 H Carbon Dioxide 30 H BUN 28 H Creatinine 1.77 H Glucose 101 Calcium 8.2 L - VTE Documentation of Mechanical Device: Intermittent pneumatic compression device Consult Discharge Plan - Plan Referrals: Reggie Reynoso MD [Primary Care Provider] -
--- NOTE | 2018-02-02 10:15 | General Surgery Progress Note ---
<Tana Law - Last Filed: 02/02/18 10:19> Date of Encounter: 02/02/18 Time of Encounter: 10:00 - Assessment and Plan (1) Mass of cecum Current Visit: No Status: Acute Mass is completing obstructing at this point Patient is to remain on bowel rest NG tube to LIWS IV fluids Plan for exploratory laparotomy with ileocecectomy with Dr. Gonzales in the next 24-48 hours. The risks, benefits, alternatives and expected outcomes have been reviewed with the patient and his and they are in agreement to proceed. Supportive care and pain control Strict I&Os Incentive Spirometer every 1 hour while awake PPI therapy daily Type and Cross today Repeat am labs Oncology consult initiated after last weeks admission (2) Retroperitoneal mass Current Visit: Yes Status: Acute s/p Biopsy last week Pathology- Retroperitoneal mass, core biopsy: Positive for metastatic carcinoma. See comment. 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 Tumor seems to invade the soft tissue and bone. Immunohistochemical stains performed (reported below) are suggestive of lower gastrointestinal tract as a primary site. Oncology consult initiated after last weeks admission (3) Metastasis to liver Current Visit: Yes Status: Acute Oncology consult initiated after last weeks admission (4) Anemia of chronic disease Current Visit: Yes Status: Acute Hgb- 8.5>8.0 Type and Cross today Will continue to monitor and treat as necessary Patient asymptomatic at this time (5) Acute kidney injury Current Visit: Yes Status: Acute Cr. 2.06>2.10>1.77 IV fluids Avoid nephrotoxic medications Strict I&Os Repeat am labs Subjective Patient reports: no new complaints, feels better, still having pain, pain is less, voiding w/o difficulty, no bowel movement, afebrile Objective Vital Signs - Last 8 Hours Temp Pulse Resp BP Pulse Ox 02/02/18 07:33 98.8 F 66 18 108/60 96 02/02/18 05:10 98.5 F 72 16 129/67 95 Intake and Output 02/01/18 02/02/18 02/02/18 23:59 07:59 15:59 Intake Total 1060 / 1060 1780 / 1780 280 / 280 Output Total 750 / 750 550 / 550 0 / 0 Balance 310 / 310 1230 / 1230 280 / 280 Intake: IV Fluids 1000 / 1000 1720 / 1720 280 / 280 Lactated Ringers 1,000 ML @ 100 1720 / 1720 280 / 280 mls/hr IVC .Q10H [facility] Rx#: [id number] Oral 60 / 60 60 / 60 0 / 0 Output: Urine 200 / 200 350 / 350 0 / 0 Gastric Drainage 550 / 550 200 / 200 Other: Meal npo NPO Blood Glucose* 88 99 - General physical appearance well developed, well nourished, no distress - Eyes normal ocular movement - ENT normal mucosa, atraumatic, normocephalic - Neck Neck exam: trachea midline - Respiratory normal respiratory effort, clear to auscultation - Cardiovascular Cardiovascular exam: Present: RRR - Abdomen Abdomen: Present: bowel sounds present, soft, tender (mild tenderness noted on right side), wound (NG to LIWS with bilious drainage noted) - Neurologic CN 2-12 grossly intact - Psychiatric oriented to time, oriented to person, oriented to place, speech is normal, memory intact - Labs 02/02/18 04:31 02/02/18 04:31 Diabetes panel 02/02/18 Range/Units 04:31 Sodium 141 (136-145) mEq/L Potassium 3.8 (3.5-5.1) mEq/L Chloride 110 H (98-107) mEq/L Carbon Dioxide 30 H (23-29) mEq/L BUN 28 H (8-23) mg/dL Creatinine 1.77 H (0.70-1.30) mg/dL Glucose 101 (70-105) mg/dL Calcium 8.2 L (8.6-10.3) mg/dL Calcium panel 02/02/18 Range/Units 04:31 Calcium 8.2 L (8.6-10.3) mg/dL Pituitary panel 02/02/18 Range/Units 04:31 Sodium 141 (136-145) mEq/L Potassium 3.8 (3.5-5.1) mEq/L Chloride 110 H (98-107) mEq/L Carbon Dioxide 30 H (23-29) mEq/L BUN 28 H (8-23) mg/dL Creatinine 1.77 H (0.70-1.30) mg/dL Glucose 101 (70-105) mg/dL Calcium 8.2 L (8.6-10.3) mg/dL Adrenal panel 02/02/18 Range/Units 04:31 Sodium 141 (136-145) mEq/L Potassium 3.8 (3.5-5.1) mEq/L Chloride 110 H (98-107) mEq/L Carbon Dioxide 30 H (23-29) mEq/L BUN 28 H (8-23) mg/dL Creatinine 1.77 H (0.70-1.30) mg/dL Glucose 101 (70-105) mg/dL Calcium 8.2 L (8.6-10.3) mg/dL - VTE Documentation of Mechanical Device: Intermittent pneumatic compression device Consult Discharge Plan - Plan Referrals: Reggie Reynoso MD [Primary Care Provider] - - Attending Attestation For this encounter, I have reviewed the MACHINE CARTON MARKER or PA documentation, treatment plan, and medical decision making; and I have had face to face time with this patient. 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 Due to continued anemia from presumed bleeding from the colon mass and the obstruction it is causing he will require surgery to alleviate these two issues. Will plan Exploratory laparotomy with right colectomy, risks and benefits discussed and he wishes to proceed patients extensive medical problems will be managed by hospitalist (2) Metastatic colon cancer to liver Current Visit: Yes Status: Chronic (3) Retroperitoneal mass Current Visit: Yes Status: Acute Subjective Patient reports: no new complaints, feels better, voiding w/o difficulty, no bowel movement Objective Vital Signs - Last 8 Hours Temp Pulse Resp BP Pulse Ox 02/03/18 11:11 98.5 F 72 16 151/64 95 02/03/18 08:26 95 02/03/18 07:41 98.1 F 69 16 129/71 95 Intake and Output 02/02/18 02/03/18 02/03/18 23:59 07:59 15:59 Intake Total 1000 / 1000 1000 / 1000 500 / 500 Output Total 300 / 300 1300 / 1300 150 / 150 Balance 700 / 700 -300 / -300 350 / 350 Intake: IV Fluids 1000 / 1000 1000 / 1000 500 / 500 Lactated Ringers 1,000 ML @ 100 1000 / 1000 1000 / 1000 500 / 500 mls/hr IVC .Q10H [facility] Rx#: [id number] Oral 0 / 0 0 / 0 Output: Urine 300 / 300 1025 / 1025 150 / 150 Gastric Drainage 275 / 275 0 / 0 Other: Meal Dinner NPO NPO Percent of Meal Consumed 0% Weight 110.359 kg Blood Glucose* 87 85 84 Patient Weight 02/03/18 23:59 Weight 110.359 kg - General physical appearance well developed, well nourished, no distress - Eyes normal ocular movement - ENT normal mucosa, atraumatic - Neck Neck exam: trachea midline - Respiratory normal expansion, clear to auscultation - Cardiovascular Cardiovascular exam: Present: RRR - Abdomen Abdomen: Present: bowel sounds present, soft, tender - Integumentary no growths - Neurologic CN 2-12 grossly intact - Musculoskeletal normal posture - Psychiatric oriented to time, oriented to person, oriented to place, speech is normal, memory intact - Labs 02/03/18 04:58 02/03/18 04:58 Diabetes panel 02/03/18 Range/Units 04:58 Sodium 144 (136-145) mEq/L Potassium 3.9 (3.5-5.1) mEq/L Chloride 110 H (98-107) mEq/L Carbon Dioxide 25 (23-29) mEq/L BUN 24 H (8-23) mg/dL Creatinine 1.60 H (0.70-1.30) mg/dL Glucose 88 (70-105) mg/dL Calcium 8.1 L (8.6-10.3) mg/dL Calcium panel 02/03/18 Range/Units 04:58 Calcium 8.1 L (8.6-10.3) mg/dL Pituitary panel 02/03/18 Range/Units 04:58 Sodium 144 (136-145) mEq/L Potassium 3.9 (3.5-5.1) mEq/L Chloride 110 H (98-107) mEq/L Carbon Dioxide 25 (23-29) mEq/L BUN 24 H (8-23) mg/dL Creatinine 1.60 H (0.70-1.30) mg/dL Glucose 88 (70-105) mg/dL Calcium 8.1 L (8.6-10.3) mg/dL Adrenal panel 02/03/18 Range/Units 04:58 Sodium 144 (136-145) mEq/L Potassium 3.9 (3.5-5.1) mEq/L Chloride 110 H (98-107) mEq/L Carbon Dioxide 25 (23-29) mEq/L BUN 24 H (8-23) mg/dL Creatinine 1.60 H (0.70-1.30) mg/dL Glucose 88 (70-105) mg/dL Calcium 8.1 L (8.6-10.3) mg/dL - Imaging CT scan - abdomen: report reviewed, image reviewed CT scan - pelvis: report reviewed, image reviewed - Attending Attestation I have personally performed a face to face evaluation on this patient. I have reviewed and agree with the care plan. History and Exam by me shows:
[2018-02-02] MEDS: Pantoprazole 40 MG VIAL IVP SCH (11:44)
--- NOTE | 2018-02-02 19:54 | Anesthesia Evaluation PreOp ---
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: Denies Any Significant HX Other Medical History: Renal (CKD stage 3), Diabetes Type II, GERD, Other (H/O metastatic colon CA to liver) Anesthesia History: Past Anesthesia (no prior general anesthesia) Alcohol Use: none Drug use: none Medications and Allergies Aspirin 81 mg PO DAILY 01/24/18 [History] Cholecalciferol (D-3) [Vitamin D] 1,000 mg PO DAILY 01/24/18 [History] Flaxseed Oil [[place]-3 Flaxseed Oil] 1,000 mg PO DAILY 01/24/18 [History] Simvastatin [Zocor] 40 mg PO HS 01/24/18 [History] SitaGLIPtin [Januvia] 25 mg PO DAILY 01/24/18 [History] Amlodipine Besylate/Benazepril [Lotrel 10-40 mg Capsule] 1 cap PO DAILY [History] Lidocaine/Prilocaine [Emla] 1 appl TP AD #30 gm 01/30/18 [Rx] Omeprazole [PriLOSEC] 20 mg PO BIDAC #30 cap 01/30/18 [Rx] Ondansetron HCl [Zofran] 4 mg PO Q4H PRN #30 tablet 01/30/18 [Rx] Prochlorperazine Maleate [Compazine] 10 mg PO Q6H PRN #30 tablet 01/30/18 [Rx] Hydrochlorothiazide [Microzide] 12.5 mg PO DAILY 02/01/18 [History] 3 Allergy/AdvReac Type Severity Reaction Status Date / Time No Known Drug Allergies Allergy Unknown None Verified 01/31/18 11:56 - Meds/Allergy Pre-op Review Medications Reviewed: Yes Allergies Reviewed: Yes Beta Blockers on Current Med List: No Anesthesia Results - Labs 02/02/18 04:31 02/02/18 04:31 Anesthesia Exam Vital Signs/O2 Sat/Glucose, Most Recent Temp Pulse Resp BP Pulse Ox 98.5 F 72 16 137/64 97 02/02/18 18:44 02/02/18 18:44 02/02/18 18:44 02/02/18 18:44 02/02/18 18:44 Blood Glucose* 86 Height: 6'2''/1.88 m Weight: 240 lbs/109.3 kg NPO (# of Hours): 8 Pain Scale: 0 Pain Scale Used: Numeric (1 - 10) - HEENT Pupil (Motor): EOMI Mallampati: III Teeth: Edentulous Oral Opening: Greater than 3 - 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
[2018-02-03 05:35] LABS: Basophils % 0.2 %; Eosinophils # 0.2 K/mcL (0.0-0.6); Eosinophils % 3.9 %; Hematocrit 24.9 % (37.5-50.1); Hemoglobin 7.8 g/dL (12.9-16.9); Immature Granulocytes % 0.4 % (0-4); Lymphocytes # 0.8 K/mcL (0.6-4.6); Lymphocytes % 13.8 %; Mean Corpuscular HGB Conc 31.3 g/dL (31.6-35.5); Mean Corpuscular Hemoglobin 25.3 pg (28.0-33.3); Mean Corpuscular Volume 80.8 fL (83.0-100.0); Mean Platelet Volume 10.5 fL (9.4-12.4); Monocytes # 0.7 K/mcL (0.0-1.3); Monocytes % 12.5 %; Neutrophils # 3.8 K/mcL (1.6-8.9); Platelet Count 209 K/mcL (140-400); Red Blood Count 3.08 M/mcL (4.19-5.50); Red Cell Distribution Width 15.3 % (11.5-14.5); Segmented Neutrophils % 69.2 %
[2018-02-03 05:36] LABS: INR 1.4; Prothrombin Time 15.4 Seconds (9.4-12.1)
[2018-02-03 05:42] LABS: Calcium 8.1 mg/dL (8.6-10.3); Potassium 3.9 mEq/L (3.5-5.1)
[2018-02-03] MEDS: Ringers Solution, Lactated 1,000 ML IVC SCH (06:50)
[2018-02-03] MEDS: Pantoprazole 40 MG VIAL IVP SCH (07:50)
--- NOTE | 2018-02-03 09:42 | Internal Med Progress Note ---
<Tram Gilbert - Last Filed: 02/03/18 11:35> Date of Encounter: 02/03/18 Time of Encounter: 09:30 - Assessment and plan (1) SBO (small bowel obstruction) Current Visit: Yes Status: Acute Assessment and plan: High-grade small bowel obstruction demonstrated by imaging. Secondary to adenocarcinoma of cecum Abd CT demonstrating large cecal mass at ileocecal valve compatible with carcinoma. High-grade small bowel show action. Liver lesions compatible with metastatic disease. 9 mm right lower lobe pulmonary nodules that may be metastases. Patient reports significant improvement of abdominal pain and distention. Last bowel movement 2 days ago. 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 High-grade small bowel show action. Liver lesions compatible with metastatic disease. 9 mm right lower lobe pulmonary nodules that may be metastases. (4) Hypertension Current Visit: Yes Status: Chronic Assessment and plan: history of hypertension. controlled continue amlodipine Qualifiers: Hypertension type: essential hypertension Qualified Code(s): I10 - Essential (primary) hypertension (5) Anemia Current Visit: Yes Status: Chronic Assessment and plan: Anemia of chronic disease Hgb 7.8 (8, 8.5) no obvious active bleeding -will continue to monitor Qualifiers: Anemia type: iron deficiency Iron deficiency anemia type: chronic blood loss Qualified Code(s): D50.0 - Iron deficiency anemia secondary to blood loss (chronic) (6) Diabetes Current Visit: Yes Status: Chronic Assessment and plan: History of diabetes well-controlled with Januvia Qualifiers: Diabetes mellitus type: type 2 Diabetes mellitus ad terminal makeup operator insulin use: without fpc use Diabetes mellitus complication status: with kidney complications Diabetes mellitus complication detail: with chronic kidney disease Chronic kidney disease stage: stage 3 (moderate) Qualified Code(s): E11.22 - Type 2 diabetes mellitus with diabetic chronic kidney disease; N18.3 - Chronic kidney disease, stage 3 (moderate); N18.3 - Chronic kidney disease, stage 3 (moderate) (7) Acute kidney injury Current Visit: Yes Status: Acute Assessment and plan: LIZ on CKD creatinine 1.6 at baseline -avoid nephrotoxic agents, IVF, monitor Scr (8) CKD (chronic kidney disease), stage III Current Visit: Yes Status: Acute Assessment and plan: see plan above (9) DVT prophylaxis Current Visit: Yes Status: Acute Assessment and plan: EPCD - Time Spent With Patient Total time spent is greater than 50% in coordination of care (as documented) at patient's floor/unit and/or counseling patient: - Subjective Interval history: Patient seen and examined at bedside alongside family. He denies abdominal pain , nausea, vomiting, fever, chills. Last bowel movement was 2 days ago. He is good to OR for bowel resection today. - Constitutional Vitals: Temp Pulse Resp BP Pulse Ox 98.1 F 69 16 129/71 95 02/03/18 07:41 02/03/18 07:41 02/03/18 07:41 02/03/18 07:41 02/03/18 08:26 General appearance: Present: cooperative, A&O X 3, no acute distress, answers questions appropriately Exam: Gen.: Vitals noted. No acute distress. AAOx3 HEENT: oropharynx clear, Normocephalic, atraumatic Cardiac: RRR, no murmur, +S1/S2 Pulmonary: CTA bilaterally, no wheezes, rales or rhonchi, equal chest expansion Abdomen: soft, nontender, No Bowel sounds noted, no guarding, minimally distended MSK: ROM intact, no joint swelling noted Extremities: no BLE edema, nontender calf, no cyanosis or clubbing Neuro: A&Ox3, moves all extremities, no focal deficits Psych: Appropriate mood and behavior Internal Medicine: Result - Labs CBC & Chem 7: 02/03/18 04:58 02/03/18 04:58 Labs: Short CBC 02/03/18 Range/Units 04:58 WBC 5.4 (4.3-11.1) K/mcL Hgb 7.8 L (12.9-16.9) g/dL Hct 24.9 L (37.5-50.1) % Plt Count 209 (140-400) K/mcL Neutrophils # 3.8 (1.6-8.9) K/mcL BMP 02/03/18 04:58 Sodium 144 Potassium 3.9 Chloride 110 H Carbon Dioxide 25 BUN 24 H Creatinine 1.60 H Glucose 88 Calcium 8.1 L - ABG Interpretation ABG results: PT/INR, D-dimer PT 15.4 Seconds (9.4-12.1) H 02/03/18 04:58 - VTE Documentation of Mechanical Device: Intermittent pneumatic compression device Consult Discharge Plan - Plan Referrals: Reggie Reynoso MD [Primary Care Provider] - <Ry Flores H - Last Filed: 02/03/18 11:53> Date of Encounter: 02/03/18 - Assessment and plan (1) Carcinoma of cecum Current Visit: Yes Status: Acute (2) Hypertension Current Visit: Yes Status: Chronic Qualifiers: Hypertension type: essential hypertension Qualified Code(s): I10 - Essential (primary) hypertension (3) Diabetes Current Visit: Yes Status: Chronic Qualifiers: Diabetes mellitus type: type 2 Diabetes mellitus ad terminal makeup operator insulin use: without fpc use Diabetes mellitus complication status: with kidney complications Diabetes mellitus complication detail: with chronic kidney disease Chronic kidney disease stage: stage 3 (moderate) Qualified Code(s): E11.22 - Type 2 diabetes mellitus with diabetic chronic kidney disease; N18.3 - Chronic kidney disease, stage 3 (moderate); N18.3 - Chronic kidney disease, stage 3 (moderate) (4) DVT prophylaxis Current Visit: Yes Status: Acute (5) Anemia Current Visit: Yes Status: Chronic Qualifiers: Anemia type: iron deficiency Iron deficiency anemia type: chronic blood loss Qualified Code(s): D50.0 - Iron deficiency anemia secondary to blood loss (chronic) (6) Acute kidney injury Current Visit: Yes Status: Acute (7) Metastatic colon cancer to liver Current Visit: Yes Status: Acute (8) SBO (small bowel obstruction) Current Visit: Yes Status: Acute - Time Spent With Patient Total time spent is greater than 50% in coordination of care (as documented) at patient's floor/unit and/or counseling patient: - Constitutional Vitals: Temp Pulse Resp BP Pulse Ox 98.5 F 72 16 151/64 95 02/03/18 11:11 02/03/18 11:11 02/03/18 11:11 02/03/18 11:11 02/03/18 11:11 Internal Medicine: Result - Labs CBC & Chem 7: 02/03/18 04:58 02/03/18 04:58 Labs: Short CBC 02/03/18 Range/Units 04:58 WBC 5.4 (4.3-11.1) K/mcL Hgb 7.8 L (12.9-16.9) g/dL Hct 24.9 L (37.5-50.1) % Plt Count 209 (140-400) K/mcL Neutrophils # 3.8 (1.6-8.9) K/mcL BMP 02/03/18 04:58 Sodium 144 Potassium 3.9 Chloride 110 H Carbon Dioxide 25 BUN 24 H Creatinine 1.60 H Glucose 88 Calcium 8.1 L - ABG Interpretation ABG results: PT/INR, D-dimer PT 15.4 Seconds (9.4-12.1) H 02/03/18 04:58 - Attending Attestation cholelithiasis, consider CYY surgery scheduled today I examined this patient and my medical decision-making was reviewed with the Resident Physician. I agree with the documented findings, disposition and treatment plan as described except to the extent set forth below.
[2018-02-03] MEDS ORDERED: *HR* Propofol 200 MG/20 ML VIAL IVP ONE (10:54)
[2018-02-03] MEDS ORDERED: *HR* Rocuronium Bromide 50 MG/5 ML VIAL ONE ×2 (11:08→15:46)
[2018-02-03] MEDS ORDERED: Ondansetron 4 MG/2 ML VIAL ONE (11:08)
[2018-02-03] MEDS ORDERED: *HR* Succinylcholine 200 MG/10 ML VIAL IVP ONE (11:08)
[2018-02-03] MEDS ORDERED: Lidocaine -MPF 2% 2 ML VIAL ONE (11:08)
[2018-02-03] MEDS ORDERED: Dexamethasone 4 MG/ML VIAL ONE ×2 (11:08→16:02)
[2018-02-03] MEDS ORDERED: *HR* FentaNYL (PF) 100 MCG/2 ML VIAL ONE ×4 (11:17→15:43)
[2018-02-03] MEDS ORDERED: Lidocaine -MPF 4% 5 ML AMPUL ONE (11:26)
[2018-02-03] MEDS ORDERED: Acetaminophen IV 1,000 MG/100 ML INFUS..BTL ONE (13:13)
[2018-02-03] MEDS ORDERED: CefOXitin 2,000 MG VIAL ONE (13:17)
[2018-02-03] MEDS ORDERED: cefOXitin 2,000 MG in Water for inj. (sterile) 20 ML 10 ML IVP ONE (13:30)
[2018-02-03] MEDS ORDERED: *HR* Labetalol 20 MG/4 ML SYRINGE IVP PRN (14:32)
[2018-02-03] MEDS ORDERED: Ondansetron 4 MG/2 ML VIAL IVP ONE (14:32)
[2018-02-03] MEDS ORDERED: *HR* HYDROmorphone (PF) 1 MG/ML SYRINGE IVP PRN (14:32)
[2018-02-03] MEDS ORDERED: Dexamethasone 4 MG/ML VIAL IVP ONE (14:32)
[2018-02-03] MEDS ORDERED: Neostigmine Methylsulfate 3 MG/3 ML SYRINGE ONE (15:09)
[2018-02-03] MEDS ORDERED: *HR* Morphine 10 MG/ML VIAL ONE (15:41)
--- NOTE | 2018-02-03 16:32 | Operative Note ---
Date of procedure: 02/03/18 Pre-op diagnosis: Obstructing right colon mass Post-op diagnosis: same Procedure: Exploratory laparotomy, right colectomy Complications: none immedate Anesthesia: GETA Surgeon: Lorene Gonzales Was there an assisted living assistant present: Yes Functional Director: Azul Bob Estimated blood loss (cc): 100 IV fluids (cc): 2,500 (1 prbc, 250cc albumin) Urine output (cc): 150 Specimen: right colon Condition: stable Disposition: PACU Procedure in Detail: Patient was brought to the operating suite and placed supine on the operating table. Sign in was performed and everyone was in agreement. Anesthesia was induced and patient was intubated by anesthesia without incident. Patient has an NG tube that was placed by the floor. Harper catheter was placed by the circulating nurse. Abdomen was prepped and draped in the usual sterile Fashion. Timeout was performed again everyone was in agreement. Upper midline incision through the skin into the subcutaneous tissue was made with a 15 blade. We dissected through the subcutaneous tissue to the intra-abdominal wall linea alba fascia with the Bovie. Thomas's are placed on either side of the fascia for retraction and the abdomen was entered with gentle blunt dissection and the Bovie and the incision elongated. Patient had significant dilation of the small bowel. A Bookwalter was placed for retraction. Small bowel succus was milked back into the stomach and removed via NG tube suction. Once the small bowel caliber was decreased due to evacuation of succus the small bowel was packed into the left side of the abdomen with wet towel and Bookwalter Julieta retractor. The white line of Toldt of the right colon was taken down with the Bovie and a proximal to distal direction. Using gentle blunt dissection the right colon was lifted off the Gerotas fascia. THe proximal right colon omentum was taken off the colon with the Bovie. An opening in the mesentery just beneath the transverse colon (~1/3 length) was made with the Bovie. A linear EVI-75 stapler blue load was used to transect the transverse colon. The terminal ileum was located and an opening in the mesentery was made with the Bovie just beneath the small bowel at the terminal ileum and the linear EVI-75 stapler blue load was used to transect the terminal ileum. The impact LigaSure was used to divide the ileocolic vessels mesentery towards the cecum. Using gentle blunt dissection and the Bovie the cecal mass was elevated off the retroperitoneum. The mesentery along the right colon was scored with the Bovie. A right angle was used to dissect out the right colon artery and vein and Julieta's were placed on each vessel proximally. The right colon artery and vein were then transected with Metzenbaum scissors and the specimen placed off to the back table for pathology. The right colon artery and vein were each ligated with an 0 silk tie. A mxfm-hy-crhr ileum to transverse colon anastomosis was created first with a linear EVI-75 stapler creating the common channel then the common channel was closed with 2 loads of a linear EVI-75 stapler blue load due to the thickness and enlarged/dilated small bowel. The closed ileocolic and was reinforced with 3-0 silk figure-of- eight stitches. A 3-0 silk crotch stitch was placed. The opening in the mesentery between the transverse colon and terminal was closed with 2-0 Vicryl [id number] stitches. The abdomen was copiously irrigated with sterile saline. The anastomosis was placed in the right upper quadrant and omentum draped over and around the anastomosis. All lap and instrument counts were correct at the end of the case. Keily's are placed on either side of the fascia for retraction. The fascia was reapproximated with 2 separate #1 non- looped PDS running stitches meeting in the middle. The subcutaneous tissue was copiously irrigated with sterile saline. The subcutaneous tissue was reapproximated with 3-0 Vicryl interrupted stitches. The skin was closed with brisa. The patient tolerated the procedure well. He was awoken by anesthesia and the operating suite and extubated without incident. The Harper catheter and NG tube remained with the patient after surgery. He was taken to PACU in stable condition.
--- NOTE | 2018-02-03 17:07 | Anesthesia Evaluation Post Op ---
Date of Encounter: 02/03/18 Time of Encounter: 17:00 - Vital Signs Vital Signs: Vital Signs/O2 Sat/Glucose, Most Current Temp Pulse Resp BP Pulse Ox 02/03/18 17:00 98.0 F 74 18 128/62 99 02/03/18 16:50 97.9 F 73 18 126/63 99 02/03/18 16:40 97.9 F 80 18 120/61 100 02/03/18 16:30 97.4 F L 86 12 131/71 100 - Lungs Lungs: Clear Ascult./Percussion - Airway Airway: Non-obstructed - Cardiovascular Regular Rate - Mental Status Mental Status: Alert & Oriented, Answers Appropriately - Pain Pain Scale: 0 - Nausea Vomiting Nausea Vomiting: Not Present - Hydration Hydration: NPO - Discharge PostOp Status: Transfer Patient to floor
[2018-02-03] MEDS ORDERED: *HR* Metoprolol 5 MG/5 ML VIAL IVP PRN (17:23)
[2018-02-03] MEDS ORDERED: Ondansetron 4 MG/2 ML VIAL IVP PRN (17:23)
[2018-02-03] MEDS ORDERED: Naloxone 0.4 MG/ML INJ IVP PRN (17:23)
[2018-02-03] MEDS: 0.9 % Sodium Chloride 1,000 ML IVC SCH (17:46)
[2018-02-03] MEDS: *HR* FentaNYL PATCH 25 MCG PATCH TD SCH (17:46)
[2018-02-03] MEDS: *HR* Heparin 5,000 UNIT/ML VIAL SQ SCH (17:50)
[2018-02-03] MEDS: *HR* Metoprolol 5 MG/5 ML VIAL IVP SCH ×2 (17:52→23:18)
[2018-02-03] MEDS: OXYCODONE Oral CONC 10 MG/0.5 ML ORAL.SYG SL SCH ×2 (19:34→23:18)
[2018-02-03] MEDS: Piperacillin/Tazobactam 3.375 GM in 0.9 % Sodium Chloride Mini Bag 100 ML IVPB SCH (23:17)
--- NOTE | 2018-02-03 23:52 | Electrocardiograph Report ---
[address] [address] Test Date: 2018-02-02 Pat Name: Roland Mcfarland Department: 115 Room: 3A32 Gender: M Upstairs Maid: JANIE : 1940 Requested By: Isai Mccain Order Number: [id number] Reading MD: Tana Butler Measurements Intervals [place] Rate: 77 P: 58 RI: 210 QRS: -36 QRSD: 108 T: 45 QT: 373 QTc: 405 Interpretive Statements SINUS RHYTHM WITH FIRST DEGREE AV BLOCK WITH OCCASIONAL VENTRICULAR PREMATURE COMPLEXES WITH OCCASIONAL SUPRAVENTRICULAR PREMAT MARKED LEFT AXIS DEVIATION POSSIBLE ANTERIOR MYOCARDIAL INFARCTION, OF INDETERMINATE AGE Electronically Signed On 02-03-2018 23:51:06 EDT by Tana Butler
[2018-02-04] MEDS: 0.9 % Sodium Chloride 1,000 ML IVC SCH ×3 (02:01→17:46)
[2018-02-04] MEDS: *HR* Heparin 5,000 UNIT/ML VIAL SQ SCH ×2 (05:11→17:51)
[2018-02-04] MEDS: *HR* Metoprolol 5 MG/5 ML VIAL IVP SCH ×4 (05:11→23:16)
[2018-02-04] MEDS: OXYCODONE Oral CONC 10 MG/0.5 ML ORAL.SYG SL SCH ×2 (05:11→09:12)
[2018-02-04 05:27] LABS: Basophils % 0.1 %; Hematocrit 27.6 % (37.5-50.1); Hemoglobin 8.6 g/dL (12.9-16.9); Immature Granulocytes % 0.4 % (0-4); Lymphocytes # 0.4 K/mcL (0.6-4.6); Mean Corpuscular HGB Conc 31.2 g/dL (31.6-35.5); Mean Corpuscular Hemoglobin 25.8 pg (28.0-33.3); Mean Corpuscular Volume 82.9 fL (83.0-100.0); Mean Platelet Volume 10.7 fL (9.4-12.4); Monocytes # 0.6 K/mcL (0.0-1.3); Platelet Count 214 K/mcL (140-400); Red Blood Count 3.33 M/mcL (4.19-5.50); Red Cell Distribution Width 15.6 % (11.5-14.5); Segmented Neutrophils % 90.5 %
[2018-02-04 05:43] LABS: Calcium 7.9 mg/dL (8.6-10.3); Potassium 4.7 mEq/L (3.5-5.1)
[2018-02-04] MEDS ORDERED: amLODIPine 5 MG TABLET PO SCH (09:00)
[2018-02-04] MEDS ORDERED: Lisinopril 20 MG TABLET PO SCH (09:00)
[2018-02-04] MEDS ORDERED: NON-FORMULARY MEDICATION 1 EACH EACH (Amlodipine Besylate/Benazepril [Lotrel 10-40 Mg Caps PO SCH (09:00)
--- NOTE | 2018-02-04 09:03 | General Surgery Progress Note ---
Date of Encounter: 02/04/18 Time of Encounter: 09:03 Objective Vital Signs - Last 8 Hours Temp Pulse Resp BP Pulse Ox 02/04/18 07:15 97.9 F 69 18 121/60 96 02/04/18 05:09 77 127/62 02/04/18 04:58 98.6 F 72 16 111/62 96 Intake and Output 02/03/18 02/04/18 02/04/18 23:59 07:59 15:59 Intake Total 0 / 0 1000 / 1000 Output Total 250 / 250 825 / 825 Balance -250 / -250 175 / 175 Intake: IV Fluids 1000 / 1000 0.9 % Sodium Chloride 1,000 ML 1000 / 1000 @ 125 mls/hr IVC .Q8H [facility] Rx#: [id number] Oral 0 / 0 0 / 0 Output: Estimated Blood Loss 100 / 100 Urine Amount (Catheter) 150 / 150 Catheter 525 / 525 Gastric Drainage 300 / 300 Other: Meal NPO Percent of Meal Consumed 0% Blood Glucose* 94 124 - Labs 02/04/18 04:35 02/04/18 04:35 Diabetes panel 02/04/18 Range/Units 04:35 Sodium 145 (136-145) mEq/L Potassium 4.7 (3.5-5.1) mEq/L Chloride 114 H (98-107) mEq/L Carbon Dioxide 20 L (23-29) mEq/L BUN 26 H (8-23) mg/dL Creatinine 1.79 H (0.70-1.30) mg/dL Glucose 139 H (70-105) mg/dL Calcium 7.9 L (8.6-10.3) mg/dL Calcium panel 02/04/18 Range/Units 04:35 Calcium 7.9 L (8.6-10.3) mg/dL Pituitary panel 02/04/18 Range/Units 04:35 Sodium 145 (136-145) mEq/L Potassium 4.7 (3.5-5.1) mEq/L Chloride 114 H (98-107) mEq/L Carbon Dioxide 20 L (23-29) mEq/L BUN 26 H (8-23) mg/dL Creatinine 1.79 H (0.70-1.30) mg/dL Glucose 139 H (70-105) mg/dL Calcium 7.9 L (8.6-10.3) mg/dL Adrenal panel 02/04/18 Range/Units 04:35 Sodium 145 (136-145) mEq/L Potassium 4.7 (3.5-5.1) mEq/L Chloride 114 H (98-107) mEq/L Carbon Dioxide 20 L (23-29) mEq/L BUN 26 H (8-23) mg/dL Creatinine 1.79 H (0.70-1.30) mg/dL Glucose 139 H (70-105) mg/dL Calcium 7.9 L (8.6-10.3) mg/dL - VTE Documentation of Mechanical Device: Intermittent pneumatic compression device Consult Discharge Plan - Plan Referrals: Lorene Gonzales MD [Partnered Physician] - 02/18/18 11:05 am
[2018-02-04] MEDS: Piperacillin/Tazobactam 3.375 GM in 0.9 % Sodium Chloride Mini Bag 100 ML IVPB SCH ×2 (09:16→15:57)
[2018-02-04] MEDS: Pantoprazole 40 MG VIAL IVP SCH (09:19)
--- NOTE | 2018-02-04 10:29 | Internal Med Progress Note ---
<Tram Gilbert - Last Filed: 02/04/18 10:27> Date of Encounter: 02/04/18 Time of Encounter: 10:25 - Assessment and plan (1) SBO (small bowel obstruction) Current Visit: Yes Status: Acute Assessment and plan: High-grade small bowel obstruction demonstrated by imaging. Secondary to adenocarcinoma of cecum Abd CT demonstrating large cecal mass at ileocecal valve compatible with carcinoma. High-grade small bowel show action. Liver lesions compatible with metastatic disease. 9 mm right lower lobe pulmonary nodules that may be metastases. Patient reports no abdominal pain just tenderness to the incision site. He has not passed gas or bowel movement yet. 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 BP controlled continue amlodipine Qualifiers: Hypertension type: essential hypertension Qualified Code(s): I10 - Essential (primary) hypertension (4) Diabetes Current Visit: Yes Status: Chronic Assessment and plan: History of diabetes well-controlled with Januvia. Blood pressure controlled not requiring insulin. 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 exterminator insulin use: without vermin exterminator use Diabetes mellitus complication status: with kidney complications Diabetes mellitus complication detail: with chronic kidney disease Chronic kidney disease stage: stage 3 (moderate) Qualified Code(s): E11.22 - Type 2 diabetes mellitus with diabetic chronic kidney disease; N18.3 - Chronic kidney disease, stage 3 (moderate); N18.3 - Chronic kidney disease, stage 3 (moderate) (5) Anemia Current Visit: Yes Status: Chronic Assessment and plan: Anemia, likely due to colorectal cancer Hgb 8.6 stable no obvious active bleeding -will continue to monitor Qualifiers: Anemia type: iron deficiency Iron deficiency anemia type: chronic blood loss Qualified Code(s): D50.0 - Iron deficiency anemia secondary to blood loss (chronic) (6) Acute kidney injury Current Visit: Yes Status: Acute Assessment and plan: LIZ on CKD creatinine 1.79 at baseline -avoid nephrotoxic agents, IVF, monitor Scr (7) Metastatic colon cancer to liver Current Visit: Yes Status: Chronic Assessment and plan: Liver metastases demonstrate by abdominal CT Abd CT demonstrating large cecal mass at ileocecal valve compatible with carcinoma. High-grade small bowel show action. Liver lesions compatible with metastatic disease. 9 mm right lower lobe pulmonary nodules that may be metastases. Follow-up with oncology after discharge (8) CKD (chronic kidney disease), stage III Current Visit: Yes Status: Acute Assessment and plan: see plan above (9) DVT prophylaxis Current Visit: Yes Status: Acute Assessment and plan: Heparin SQ (10) Cholelithiasis Current Visit: Yes Status: Acute Assessment and plan: Cholelithiasis noted on abdominal CT. Spoke with surgery who stated that this was noted on previous images and does not think that intervention is needed. Qualifiers: Qualified Code(s): K80.20 - Calculus of gallbladder without cholecystitis without obstruction - Time Spent With Patient Total time spent is greater than 50% in coordination of care (as documented) at patient's floor/unit and/or counseling patient: - Subjective Interval history: Patient seen and examined at bedside alongside family. He denies abdominal pain but does have tenderness to palpation of the incision site. He denies nausea, vomiting, fever, chills. He is not passing gas are having a bowel movement yet. He still has his NG tube in. - Constitutional Vitals: Temp Pulse Resp BP Pulse Ox 97.9 F 69 18 121/60 96 02/04/18 07:15 02/04/18 07:15 02/04/18 07:15 02/04/18 07:15 02/04/18 07:15 General appearance: Present: cooperative, A&O X 3, no acute distress, answers questions appropriately Exam: Gen.: Vitals noted. No acute distress. AAOx3 HEENT: oropharynx clear, Normocephalic, atraumatic Neck: Supple. No adenopathy. Cardiac: RRR, no murmur, +S1/S2 Pulmonary: CTA bilaterally, no wheezes, rales or rhonchi, equal chest expansion Abdomen: soft, nontender, no bowel sounds, no guarding Extremities: no BLE edema, nontender calf, no cyanosis or clubbing Neuro: A&Ox3, moves all extremities, no focal deficits Psych: Appropriate mood and behavior Internal Medicine: Result - Labs CBC & Chem 7: 02/04/18 04:35 02/04/18 04:35 Labs: Short CBC 02/04/18 Range/Units 04:35 WBC 11.0 D (4.3-11.1) K/mcL Hgb 8.6 L (12.9-16.9) g/dL Hct 27.6 L (37.5-50.1) % Plt Count 214 (140-400) K/mcL Neutrophils # 10.0 H (1.6-8.9) K/mcL BMP 02/04/18 04:35 Sodium 145 Potassium 4.7 Chloride 114 H Carbon Dioxide 20 L BUN 26 H Creatinine 1.79 H Glucose 139 H Calcium 7.9 L - ABG Interpretation ABG results: PT/INR, D-dimer PT 15.4 Seconds (9.4-12.1) H 02/03/18 04:58 - VTE Documentation of Mechanical Device: Intermittent pneumatic compression device Consult Discharge Plan - Plan Referrals: Lorene Gonzales MD [Partnered Physician] - 02/18/18 11:05 am <Ry Flores - Last Filed: 02/04/18 13:02> Date of Encounter: 02/04/18 - Assessment and plan (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 (2) Hypertension Current Visit: Yes Status: Chronic Qualifiers: Hypertension type: essential hypertension Qualified Code(s): I10 - Essential (primary) hypertension (3) Diabetes Current Visit: Yes Status: Chronic Qualifiers: Diabetes mellitus type: type 2 Diabetes mellitus 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 exterminator insulin use: without vermin exterminator use Diabetes mellitus complication status: with kidney complications Diabetes mellitus complication detail: with chronic kidney disease Chronic kidney disease stage: stage 3 (moderate) Qualified Code(s): E11.22 - Type 2 diabetes mellitus with diabetic chronic kidney disease; N18.3 - Chronic kidney disease, stage 3 (moderate); N18.3 - Chronic kidney disease, stage 3 (moderate) (4) DVT prophylaxis Current Visit: Yes Status: Acute (5) Anemia Current Visit: Yes Status: Chronic Qualifiers: Anemia type: iron deficiency Iron deficiency anemia type: chronic blood loss Qualified Code(s): D50.0 - Iron deficiency anemia secondary to blood loss (chronic) (6) Acute kidney injury Current Visit: Yes Status: Acute (7) Metastatic colon cancer to liver Current Visit: Yes Status: Chronic (8) SBO (small bowel obstruction) Current Visit: Yes Status: Acute (9) CKD (chronic kidney disease), stage III Current Visit: Yes Status: Acute (10) Cholelithiasis Current Visit: Yes Status: Acute Qualifiers: Qualified Code(s): K80.20 - Calculus of gallbladder without cholecystitis without obstruction - Time Spent With Patient Total time spent is greater than 50% in coordination of care (as documented) at patient's floor/unit and/or counseling patient: - Constitutional Vitals: Temp Pulse Resp BP Pulse Ox 98.2 F 68 17 122/63 94 02/04/18 11:18 02/04/18 11:18 02/04/18 11:18 02/04/18 11:18 02/04/18 11:18 Internal Medicine: Result - Labs CBC & Chem 7: 02/04/18 04:35 02/04/18 04:35 Labs: Short CBC 02/04/18 Range/Units 04:35 WBC 11.0 D (4.3-11.1) K/mcL Hgb 8.6 L (12.9-16.9) g/dL Hct 27.6 L (37.5-50.1) % Plt Count 214 (140-400) K/mcL Neutrophils # 10.0 H (1.6-8.9) K/mcL BMP 02/04/18 04:35 Sodium 145 Potassium 4.7 Chloride 114 H Carbon Dioxide 20 L BUN 26 H Creatinine 1.79 H Glucose 139 H Calcium 7.9 L - ABG Interpretation ABG results: PT/INR, D-dimer PT 15.4 Seconds (9.4-12.1) H 02/03/18 04:58 - Attending Attestation SBO pathology report pending NG tube, IVF cholelithiasis, consider CYY in the future I examined this patient and my medical decision-making was reviewed with the Resident Physician. I agree with the documented findings, disposition and treatment plan as described except to the extent set forth below.
--- NOTE | 2018-02-04 10:49 | General Surgery Progress Note ---
Date of Encounter: 02/04/18 Objective Vital Signs - Last 8 Hours Temp Pulse Resp BP Pulse Ox 02/04/18 07:15 97.9 F 69 18 121/60 96 02/04/18 05:09 77 127/62 02/04/18 04:58 98.6 F 72 16 111/62 96 Intake and Output 02/03/18 02/04/18 02/04/18 23:59 07:59 15:59 Intake Total 0 / 0 1100 / 1100 1000 / 1000 Output Total 250 / 250 825 / 825 Balance -250 / -250 275 / 275 1000 / 1000 Intake: IV Fluids 1100 / 1100 1000 / 1000 0.9 % Sodium Chloride 1,000 ML 1000 / 1000 1000 / 1000 @ 125 mls/hr IVC .Q8H [facility] Rx#: [id number] Zosyn 3.375 GM In 0.9 % Sodium 100 / 100 Chloride (Mini-Bag +) 100 ML @ 25 mls/hr IVPB Q8HR [facility] Rx#: [id number] Oral 0 / 0 0 / 0 Output: Estimated Blood Loss 100 / 100 Urine Amount (Catheter) 150 / 150 Catheter 525 / 525 Gastric Drainage 300 / 300 Other: Meal NPO NPO Percent of Meal Consumed 0% Blood Glucose* 94 124 - Labs 02/04/18 04:35 02/04/18 04:35 Diabetes panel 02/04/18 Range/Units 04:35 Sodium 145 (136-145) mEq/L Potassium 4.7 (3.5-5.1) mEq/L Chloride 114 H (98-107) mEq/L Carbon Dioxide 20 L (23-29) mEq/L BUN 26 H (8-23) mg/dL Creatinine 1.79 H (0.70-1.30) mg/dL Glucose 139 H (70-105) mg/dL Calcium 7.9 L (8.6-10.3) mg/dL Calcium panel 02/04/18 Range/Units 04:35 Calcium 7.9 L (8.6-10.3) mg/dL Pituitary panel 02/04/18 Range/Units 04:35 Sodium 145 (136-145) mEq/L Potassium 4.7 (3.5-5.1) mEq/L Chloride 114 H (98-107) mEq/L Carbon Dioxide 20 L (23-29) mEq/L BUN 26 H (8-23) mg/dL Creatinine 1.79 H (0.70-1.30) mg/dL Glucose 139 H (70-105) mg/dL Calcium 7.9 L (8.6-10.3) mg/dL Adrenal panel 02/04/18 Range/Units 04:35 Sodium 145 (136-145) mEq/L Potassium 4.7 (3.5-5.1) mEq/L Chloride 114 H (98-107) mEq/L Carbon Dioxide 20 L (23-29) mEq/L BUN 26 H (8-23) mg/dL Creatinine 1.79 H (0.70-1.30) mg/dL Glucose 139 H (70-105) mg/dL Calcium 7.9 L (8.6-10.3) mg/dL - VTE Documentation of Mechanical Device: Intermittent pneumatic compression device Consult Discharge Plan - Plan Referrals: Lorene Gonzales MD [Partnered Physician] - 02/18/18 11:05 am
--- NOTE | 2018-02-04 14:11 | General Surgery Progress Note ---
<Tana Law Jennifer - Last Filed: 02/04/18 14:26> Date of Encounter: 02/04/18 Time of Encounter: 09:30 - Assessment and Plan (1) Mass of cecum Current Visit: No Status: Acute POD #1 Exploratory laparotomy, right colectomy with Dr. Gonzales Pathology pending NPO while awaiting return of bowel function NG tube to LIWS IV fluids IV antibiotics- Zosyn Supportive care and pain control Strict I&Os Continue paz catheter to SD Incentive Spirometer every 1 hour while awake PPI therapy daily Repeat am labs- CBC, BMP, prealbumin Oncology consult initiated after last weeks admission (2) Retroperitoneal mass Current Visit: Yes Status: Acute s/p Biopsy last week Pathology- Retroperitoneal mass, core biopsy: Positive for metastatic carcinoma. See comment. 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 Tumor seems to invade the soft tissue and bone. Immunohistochemical stains performed (reported below) are suggestive of lower gastrointestinal tract as a primary site. Oncology consult initiated after last weeks admission (3) Metastasis to liver Current Visit: Yes Status: Acute Oncology consult initiated after last weeks admission (4) Anemia of chronic disease Current Visit: Yes Status: Acute Hgb- 8.5>8.0>7.8>8.6 Will continue to monitor and treat as necessary Patient asymptomatic at this time (5) Acute kidney injury Current Visit: Yes Status: Acute Cr. 2.06>2.10>1.77>1.6>1.79 IV fluids Avoid nephrotoxic medications Strict I&Os Continue paz catheter to SD Repeat am labs (6) DVT prophylaxis Current Visit: Yes Status: Acute Heparin 5,000 units SQ twice daily for DVT prophylaxis EPCDs to bilateral lower extremities for DVT prophylaxis Ambulate hallways TID with assistance Subjective Patient reports: no new complaints (Denies any pain at this time), no flatus, no bowel movement, afebrile Objective Vital Signs - Last 8 Hours Temp Pulse Resp BP Pulse Ox 02/04/18 11:18 98.2 F 68 17 122/63 94 02/04/18 07:15 97.9 F 69 18 121/60 96 Intake and Output 02/03/18 02/04/18 02/04/18 23:59 07:59 15:59 Intake Total 0 / 0 1100 / 1100 1100 / 1100 Output Total 250 / 250 825 / 825 500 / 500 Balance -250 / -250 275 / 275 600 / 600 Intake: IV Fluids 1100 / 1100 1100 / 1100 0.9 % Sodium Chloride 1,000 ML 1000 / 1000 1000 / 1000 @ 125 mls/hr IVC .Q8H [facility] Rx#: [id number] Zosyn 3.375 GM In 0.9 % Sodium 100 / 100 100 / 100 Chloride (Mini-Bag +) 100 ML @ 25 mls/hr IVPB Q8HR [facility] Rx#: [id number] Oral 0 / 0 0 / 0 0 / 0 Output: Gastric Tube Lavage Amount 0 / 0 Right Nare 0 / 0 Estimated Blood Loss 100 / 100 Urine Amount (Catheter) 150 / 150 Catheter 525 / 525 200 / 200 Gastric Drainage 300 / 300 300 / 300 Other: Meal NPO NPO Percent of Meal Consumed 0% 0% Blood Glucose* 94 124 101 - General physical appearance well developed, well nourished, no distress - Eyes PERRL, normal ocular movement - ENT normal mucosa, atraumatic, normocephalic - Neck Neck exam: trachea midline - Respiratory normal respiratory effort, clear to auscultation - Cardiovascular Cardiovascular exam: Present: RRR - Abdomen Abdomen: Present: soft, tender (minimal tenderness noted around midline incision - expected), wound (NG tube to LIWS with small amount of bilious drainage noted (600ml total since surgery)) - Incision Incision: Present: clean and dry, intact - Genitourinary other (paz catheter to SD with mayer, yellow urine noted) - Neurologic CN 2-12 grossly intact - Psychiatric oriented to time, oriented to person, oriented to place, speech is normal, memory intact - Labs 02/04/18 04:35 02/04/18 04:35 Diabetes panel 02/04/18 Range/Units 04:35 Sodium 145 (136-145) mEq/L Potassium 4.7 (3.5-5.1) mEq/L Chloride 114 H (98-107) mEq/L Carbon Dioxide 20 L (23-29) mEq/L BUN 26 H (8-23) mg/dL Creatinine 1.79 H (0.70-1.30) mg/dL Glucose 139 H (70-105) mg/dL Calcium 7.9 L (8.6-10.3) mg/dL Calcium panel 02/04/18 Range/Units 04:35 Calcium 7.9 L (8.6-10.3) mg/dL Pituitary panel 02/04/18 Range/Units 04:35 Sodium 145 (136-145) mEq/L Potassium 4.7 (3.5-5.1) mEq/L Chloride 114 H (98-107) mEq/L Carbon Dioxide 20 L (23-29) mEq/L BUN 26 H (8-23) mg/dL Creatinine 1.79 H (0.70-1.30) mg/dL Glucose 139 H (70-105) mg/dL Calcium 7.9 L (8.6-10.3) mg/dL Adrenal panel 02/04/18 Range/Units 04:35 Sodium 145 (136-145) mEq/L Potassium 4.7 (3.5-5.1) mEq/L Chloride 114 H (98-107) mEq/L Carbon Dioxide 20 L (23-29) mEq/L BUN 26 H (8-23) mg/dL Creatinine 1.79 H (0.70-1.30) mg/dL Glucose 139 H (70-105) mg/dL Calcium 7.9 L (8.6-10.3) mg/dL - VTE Documentation of Mechanical Device: Intermittent pneumatic compression device Consult Discharge Plan - Plan Referrals: Lorene Gonzales MD [Partnered Physician] - 02/18/18 11:05 am - Attending Attestation For this encounter, I have reviewed the MED[employer]IC[employer] or PA documentation, treatment plan, and medical decision making; and I have had face to face time with this patient. <Lorene Gonzales - Last Filed: 02/06/18 09:16> Date of Encounter: 02/04/18 Time of Encounter: 12:40 - Assessment and Plan (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 pod 1 open right colectomy await return of bowel function continue ngt to LIWS ok ice chips and popcicles continue paz for accurate I/O's prn pain control prn antiemetics gi/dvt prophylaxis aggressive pulmonary toilet OOB to chair/ambulate (2) Metastatic colon cancer to liver Current Visit: Yes Status: Chronic (3) Retroperitoneal mass Current Visit: Yes Status: Acute Subjective Patient reports: no new complaints, still having pain, pain is less, no flatus, no bowel movement Objective Vital Signs - Last 8 Hours Temp Pulse Resp BP Pulse Ox 02/06/18 06:52 97.9 F 74 16 151/73 94 02/06/18 05:16 78 151/76 02/06/18 04:00 99.3 F 75 17 160/77 96 Intake and Output 02/05/18 02/06/18 02/06/18 23:59 07:59 15:59 Intake Total 120 / 120 60 / 60 Output Total 850 / 850 250 / 250 Balance -730 / -730 -190 / -190 Intake: Oral 120 / 120 60 / 60 Output: Urine 300 / 300 Catheter 200 / 200 0 / 0 Gastric Drainage 350 / 350 250 / 250 Other: Meal NPO Blood Glucose* 143 168 - General physical appearance well developed, well nourished, no distress - Eyes PERRL, normal ocular movement - ENT normal mucosa, normocephalic - Neck Neck exam: trachea midline - Respiratory normal expansion, normal respiratory effort - Cardiovascular Cardiovascular exam: Present: RRR - Abdomen Abdomen: Present: soft, tender, wound - Incision Incision: Present: clean and dry, intact - Genitourinary other - Integumentary no growths - Neurologic CN 2-12 grossly intact - Musculoskeletal normal posture - Psychiatric oriented to time, oriented to person, oriented to place, speech is normal, memory intact - Labs 02/06/18 03:43 02/06/18 03:43 Diabetes panel 02/06/18 Range/Units 03:43 Sodium 144 (136-145) mEq/L Potassium 3.9 (3.5-5.1) mEq/L Chloride 116 H (98-107) mEq/L Carbon Dioxide 22 L (23-29) mEq/L BUN 22 (8-23) mg/dL Creatinine 1.38 H (0.70-1.30) mg/dL Glucose 169 H (70-105) mg/dL Calcium 7.5 L (8.6-10.3) mg/dL Triglycerides 205 H (< 150) mg/dL Calcium panel 02/05/18 02/06/18 Range/Units 09:40 03:43 Calcium 7.5 L (8.6-10.3) mg/dL Phosphorus 2.3 L 2.0 L (2.7-4.5) mg/dL Pituitary panel 02/06/18 Range/Units 03:43 Sodium 144 (136-145) mEq/L Potassium 3.9 (3.5-5.1) mEq/L Chloride 116 H (98-107) mEq/L Carbon Dioxide 22 L (23-29) mEq/L BUN 22 (8-23) mg/dL Creatinine 1.38 H (0.70-1.30) mg/dL Glucose 169 H (70-105) mg/dL Calcium 7.5 L (8.6-10.3) mg/dL Adrenal panel 02/06/18 Range/Units 03:43 Sodium 144 (136-145) mEq/L Potassium 3.9 (3.5-5.1) mEq/L Chloride 116 H (98-107) mEq/L Carbon Dioxide 22 L (23-29) mEq/L BUN 22 (8-23) mg/dL Creatinine 1.38 H (0.70-1.30) mg/dL Glucose 169 H (70-105) mg/dL Calcium 7.5 L (8.6-10.3) mg/dL - Attending Attestation I have personally performed a face to face evaluation on this patient. I have reviewed and agree with the care plan. History and Exam by me shows:
[2018-02-04] MEDS: OXYCODONE Oral CONC 10 MG/0.5 ML ORAL.SYG SL PRN (23:17)
[2018-02-05] MEDS: 0.9 % Sodium Chloride 1,000 ML IVC SCH ×2 (05:01→10:58)
[2018-02-05] MEDS: *HR* Metoprolol 5 MG/5 ML VIAL IVP SCH ×4 (05:02→23:45)
[2018-02-05] MEDS: *HR* Heparin 5,000 UNIT/ML VIAL SQ SCH ×2 (05:02→17:54)
[2018-02-05 05:18] LABS: Basophils % 0.2 %; Eosinophils # 0.3 K/mcL (0.0-0.6); Eosinophils % 2.7 %; Hematocrit 27.7 % (37.5-50.1); Hemoglobin 8.7 g/dL (12.9-16.9); Immature Granulocytes % 0.6 % (0-4); Lymphocytes # 0.8 K/mcL (0.6-4.6); Lymphocytes % 8.1 %; Mean Corpuscular HGB Conc 31.4 g/dL (31.6-35.5); Mean Corpuscular Hemoglobin 25.9 pg (28.0-33.3); Mean Corpuscular Volume 82.4 fL (83.0-100.0); Mean Platelet Volume 10.6 fL (9.4-12.4); Monocytes # 0.9 K/mcL (0.0-1.3); Monocytes % 8.4 %; Neutrophils # 8.1 K/mcL (1.6-8.9); Platelet Count 206 K/mcL (140-400); Red Blood Count 3.36 M/mcL (4.19-5.50); Red Cell Distribution Width 15.9 % (11.5-14.5)
[2018-02-05 05:34] LABS: Calcium 7.5 mg/dL (8.6-10.3); Potassium 4.3 mEq/L (3.5-5.1)
--- NOTE | 2018-02-05 09:05 | General Surgery Progress Note ---
<Sherwin Godoy - Last Filed: 02/05/18 13:54> Date of Encounter: 02/05/18 Time of Encounter: 07:30 - Assessment and Plan (1) Mass of cecum Current Visit: No Status: Acute POD#2 ExLap, R colectomy w/ Dr. Gonzales Consult to Nutrition - TPN start and manage Consult to PICC team Continue NG tube @ LIWS, IV fluids at 125cc/h, Zosyn q8h, Paz, IS q1h, PPI (2) Retroperitoneal mass Current Visit: Yes Status: Acute Pathology- Retroperitoneal mass, core biopsy: Positive for metastatic carcinoma. See comment. 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 Tumor seems to invade the soft tissue and bone. Immunohistochemical stains performed (reported below) are suggestive of lower gastrointestinal tract as a primary site. (3) Metastasis to liver Current Visit: Yes Status: Acute Dr. Garcia oncology, last clinic visit 01/30/18. Per chart review, plan for f/u and chemotherapy with Dr. Garcia after this admission for R colectomy. (4) Anemia of chronic disease Current Visit: Yes Status: Acute 8.7; adynamic, VSS, monitoring (5) CKD (chronic kidney disease), stage III Current Visit: Yes Status: Acute 1.76, which is his baseline; continuing IV fluids at 125cc/h strict I&Os continue paz (6) DVT prophylaxis Current Visit: Yes Status: Acute heparin sq q12 Subjective Narrative: POD#2 after exlap with r colectomy for obstructing R colon mass by Dr. Gonzales. Mr. Mcfarland was seen and evaluted at bedside--he is sitting up comfortably in bed. His pain is under control, he has not had a BM or flatus but has noticed gurgling of his abdomen. He reports abdominal pain only when using incentive spirometry. Denies fever, shortness of breath, or chest discomfort. Objective Vital Signs - Last 8 Hours Temp Pulse Resp BP Pulse Ox 02/05/18 07:39 97.5 F L 73 15 143/76 95 02/05/18 04:47 98.2 F 76 16 148/74 94 Intake and Output 04/11/18 04/12/18 04/12/18 23:59 07:59 15:59 Intake Total 236 / 236 1120 / 1120 Output Total 550 / 550 200 / 200 Balance -314 / -314 920 / 920 Intake: IV Fluids 176 / 176 1000 / 1000 0.9 % Sodium Chloride 1,000 ML 176 / 176 1000 / 1000 @ 125 mls/hr IVC .Q8H [facility] Rx#: [id number] Oral 60 / 60 120 / 120 Output: Catheter 250 / 250 0 / 0 Gastric Drainage 300 / 300 200 / 200 Other: Meal NPO Blood Glucose* 87 88 - General physical appearance well developed, well nourished, no distress - Eyes normal ocular movement - ENT normal mucosa - Respiratory normal respiratory effort, clear to auscultation - Cardiovascular Cardiovascular exam: Present: RRR, regular rhythm - Abdomen Abdomen: Present: soft, non tender. Absent: distended, rigid - Neurologic normal coordination, normal sensation - Psychiatric oriented to time, oriented to person, oriented to place, speech is normal, memory intact - Labs 02/05/18 04:56 02/05/18 04:56 Diabetes panel 02/05/18 Range/Units 04:56 Sodium 146 H (136-145) mEq/L Potassium 4.3 (3.5-5.1) mEq/L Chloride 117 H (98-107) mEq/L Carbon Dioxide 20 L (23-29) mEq/L BUN 28 H (8-23) mg/dL Creatinine 1.76 H (0.70-1.30) mg/dL Glucose 94 (70-105) mg/dL Calcium 7.5 L (8.6-10.3) mg/dL Calcium panel 02/05/18 Range/Units 04:56 Calcium 7.5 L (8.6-10.3) mg/dL Pituitary panel 02/05/18 Range/Units 04:56 Sodium 146 H (136-145) mEq/L Potassium 4.3 (3.5-5.1) mEq/L Chloride 117 H (98-107) mEq/L Carbon Dioxide 20 L (23-29) mEq/L BUN 28 H (8-23) mg/dL Creatinine 1.76 H (0.70-1.30) mg/dL Glucose 94 (70-105) mg/dL Calcium 7.5 L (8.6-10.3) mg/dL Adrenal panel 02/05/18 Range/Units 04:56 Sodium 146 H (136-145) mEq/L Potassium 4.3 (3.5-5.1) mEq/L Chloride 117 H (98-107) mEq/L Carbon Dioxide 20 L (23-29) mEq/L BUN 28 H (8-23) mg/dL Creatinine 1.76 H (0.70-1.30) mg/dL Glucose 94 (70-105) mg/dL Calcium 7.5 L (8.6-10.3) mg/dL - VTE Documentation of Mechanical Device: Intermittent pneumatic compression device Consult Discharge Plan - Plan Referrals: Lorene Gonzales MD [Partnered Physician] - 02/18/18 11:05 am <Lorene Gonzales - Last Filed: 02/07/18 13:57> Date of Encounter: 02/05/18 - Assessment and Plan (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 pathology pending s/p open right colectomy await return of bowel function prn pain control continue ngt to liws ok ice chips and popcicles oob, ambulate gi/dvt prophylaxis continue tpn (2) Metastatic colon cancer to liver Current Visit: Yes Status: Chronic (3) Retroperitoneal mass Current Visit: Yes Status: Acute Subjective Patient reports: still having pain, pain is less, no flatus, no bowel movement, afebrile Objective Vital Signs - Last 8 Hours Temp Pulse Resp BP Pulse Ox 02/07/18 11:44 16 97 02/07/18 11:22 98.8 F 72 16 155/70 97 02/07/18 08:06 98.0 F 94 16 121/76 94 Intake and Output 02/06/18 02/07/18 02/07/18 23:59 07:59 15:59 Intake Total 1136 / 1136 370 / 370 Output Total 800 / 800 600 / 600 650 / 650 Balance 336 / 336 -230 / -230 -650 / -650 Intake: IV Fluids 1136 / 1136 250 / 250 Clinimix E 5%-15% SOLUTION 2, 1136 / 1136 000 ML @ 50 mls/hr IVC .Q24H [facility] with M.v.i. Adult 10 ml Rx# :[id number] Intralipid 20% 250 ML @ 21 mls/ 250 / 250 hr IVPB DAILY@1700 [facility] Rx#: [id number] Oral 0 / 0 120 / 120 Output: Urine 400 / 400 400 / 400 250 / 250 Gastric Drainage 400 / 400 200 / 200 400 / 400 Other: Meal NPO LUNCH Weight 11.294 kg Blood Glucose* 184 217 217 Patient Weight 02/07/18 23:59 Weight 11.294 kg - General physical appearance well developed, well nourished, no distress - Eyes normal ocular movement - ENT normal mucosa - Respiratory normal expansion, clear to auscultation - Cardiovascular Cardiovascular exam: Present: RRR - Abdomen Abdomen: Present: soft, tender (appropriate post op tenderness). Absent: bowel sounds present - Incision Incision: Present: clean and dry, intact - Integumentary no abnormal pigmentation - Neurologic normal coordination - Musculoskeletal normal posture - Psychiatric oriented to time, oriented to person, oriented to place, memory intact - Labs 02/07/18 04:00 02/07/18 04:00 Diabetes panel 02/07/18 Range/Units 04:00 Sodium 146 H (136-145) mEq/L Potassium 3.3 L (3.5-5.1) mEq/L Chloride 118 H (98-107) mEq/L Carbon Dioxide 22 L (23-29) mEq/L BUN 19 (8-23) mg/dL Creatinine 1.16 (0.70-1.30) mg/dL Glucose 199 H (70-105) mg/dL Calcium 7.1 L (8.6-10.3) mg/dL Calcium panel 02/07/18 Range/Units 04:00 Calcium 7.1 L (8.6-10.3) mg/dL Phosphorus 2.2 L (2.7-4.5) mg/dL Pituitary panel 02/07/18 Range/Units 04:00 Sodium 146 H (136-145) mEq/L Potassium 3.3 L (3.5-5.1) mEq/L Chloride 118 H (98-107) mEq/L Carbon Dioxide 22 L (23-29) mEq/L BUN 19 (8-23) mg/dL Creatinine 1.16 (0.70-1.30) mg/dL Glucose 199 H (70-105) mg/dL Calcium 7.1 L (8.6-10.3) mg/dL Adrenal panel 02/07/18 Range/Units 04:00 Sodium 146 H (136-145) mEq/L Potassium 3.3 L (3.5-5.1) mEq/L Chloride 118 H (98-107) mEq/L Carbon Dioxide 22 L (23-29) mEq/L BUN 19 (8-23) mg/dL Creatinine 1.16 (0.70-1.30) mg/dL Glucose 199 H (70-105) mg/dL Calcium 7.1 L (8.6-10.3) mg/dL - Attending Attestation I examined this patient and my medical decision-making was reviewed with the Resident Physician. I agree with the documented findings, disposition and treatment plan as described except to the extent set forth below.
[2018-02-05] MEDS: OXYCODONE Oral CONC 10 MG/0.5 ML ORAL.SYG SL PRN ×2 (09:10→15:16)
[2018-02-05] MEDS: Pantoprazole 40 MG VIAL IVP SCH (09:10)
--- NOTE | 2018-02-05 09:38 | Internal Med Progress Note ---
<Tram Gilbert - Last Filed: 02/05/18 09:35> Date of Encounter: 02/05/18 Time of Encounter: 09:20 - Assessment and plan (1) SBO (small bowel obstruction) Current Visit: Yes Status: Acute Assessment and plan: High-grade small bowel obstruction demonstrated by imaging. Secondary to adenocarcinoma of cecum Abd CT demonstrating large cecal mass at ileocecal valve compatible with carcinoma. High-grade small bowel show action. Liver lesions compatible with metastatic disease. 9 mm right lower lobe pulmonary nodules that may be metastases. Patient reports no abdominal pain just tenderness to the incision site. He has not passed gas or bowel movement yet. -POD #2 exploratory laparotomy with right colectomy -patient reports abdominal pain is controlled. Denies passing gas or bowel movement. 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 BP controlled holding home amlodipine -IV Lopressor ordered (4) Diabetes Current Visit: Yes Status: Chronic Assessment and plan: History of diabetes well-controlled with Januvia. Blood pressure controlled not requiring insulin. Currently NPO will continue accu checks (5) Anemia Current Visit: Yes Status: Chronic Assessment and plan: Anemia, likely due to colorectal cancer Hgb 8.7 stable no obvious active bleeding -will continue to monitor (6) Acute kidney injury Current Visit: Yes Status: Acute Assessment and plan: LIZ on CKD creatinine 1.76 at baseline -avoid nephrotoxic agents, IVF, monitor Scr (7) Metastatic colon cancer to liver Current Visit: Yes Status: Chronic Assessment and plan: Liver metastases demonstrate by abdominal CT Abd CT demonstrating large cecal mass at ileocecal valve compatible with carcinoma. High-grade small bowel show action. Liver lesions compatible with metastatic disease. 9 mm right lower lobe pulmonary nodules that may be metastases. Follow-up with oncology after discharge (8) CKD (chronic kidney disease), stage III Current Visit: Yes Status: Acute Assessment and plan: see plan above (9) DVT prophylaxis Current Visit: Yes Status: Acute Assessment and plan: Heparin SQ (10) Cholelithiasis Current Visit: Yes Status: Acute Assessment and plan: Cholelithiasis noted on abdominal CT. Spoke with surgery who stated that this was noted on previous images and does not think that intervention is needed. - Time Spent With Patient Total time spent is greater than 50% in coordination of care (as documented) at patient's floor/unit and/or counseling patient: - Subjective Interval history: Patient seen and examined at bedside sitting comfortably. He admits to abdominal pain but it is controlled and has tenderness to palpation of the incision site. He denies nausea, vomiting, fever, chills. He is not passing gas are having a bowel movement yet. He still has his NG tube in and will be starting TPN with management by nutrition. - Constitutional Vitals: Temp Pulse Resp BP Pulse Ox 97.5 F L 73 15 143/76 95 02/05/18 07:39 02/05/18 07:39 02/05/18 07:39 02/05/18 07:39 02/05/18 07:39 General appearance: Present: cooperative, A&O X 3, no acute distress, answers questions appropriately Exam: Gen.: Vitals noted. No acute distress. AAOx3 HEENT: oropharynx clear, Normocephalic, atraumatic Cardiac: RRR, no murmur, +S1/S2 Pulmonary: CTA bilaterally, no wheezes, rales or rhonchi, equal chest expansion Abdomen: distended, diffusely tender, no Bowel sounds, midline surgical incision is healing well MSK: no joint swelling noted Extremities: no BLE edema, nontender calf, no cyanosis or clubbing Neuro: A&Ox3, moves all extremities, no focal deficits Psych: Appropriate mood and behavior Internal Medicine: Result - Labs CBC & Chem 7: 02/05/18 04:56 02/05/18 04:56 Labs: Short CBC 02/05/18 Range/Units 04:56 WBC 10.1 (4.3-11.1) K/mcL Hgb 8.7 L (12.9-16.9) g/dL Hct 27.7 L (37.5-50.1) % Plt Count 206 (140-400) K/mcL Neutrophils # 8.1 (1.6-8.9) K/mcL BMP 02/05/18 04:56 Sodium 146 H Potassium 4.3 Chloride 117 H Carbon Dioxide 20 L BUN 28 H Creatinine 1.76 H Glucose 94 Calcium 7.5 L - ABG Interpretation ABG results: PT/INR, D-dimer PT 15.4 Seconds (9.4-12.1) H 02/03/18 04:58 - VTE Documentation of Mechanical Device: Intermittent pneumatic compression device Consult Discharge Plan - Plan Referrals: Lorene Gonzales MD [Partnered Physician] - 02/18/18 11:05 am <Ry Flores - Last Filed: 02/05/18 13:09> Date of Encounter: 02/05/18 - Assessment and plan (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 (2) Hypertension Current Visit: Yes Status: Chronic Qualifiers: Hypertension type: essential hypertension Qualified Code(s): I10 - Essential (primary) hypertension (3) Diabetes Current Visit: Yes Status: Chronic Qualifiers: Diabetes mellitus type: type 2 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 Diabetes mellitus complication status: with kidney complications Diabetes mellitus complication detail: with chronic kidney disease Chronic kidney disease stage: stage 3 (moderate) Qualified Code(s): E11.22 - Type 2 diabetes mellitus with diabetic chronic kidney disease; N18.3 - Chronic kidney disease, stage 3 (moderate); N18.3 - Chronic kidney disease, stage 3 (moderate) (4) DVT prophylaxis Current Visit: Yes Status: Acute (5) Anemia Current Visit: Yes Status: Chronic Qualifiers: Anemia type: iron deficiency Iron deficiency anemia type: chronic blood loss Qualified Code(s): D50.0 - Iron deficiency anemia secondary to blood loss (chronic) (6) Acute kidney injury Current Visit: Yes Status: Acute (7) Metastatic colon cancer to liver Current Visit: Yes Status: Chronic (8) SBO (small bowel obstruction) Current Visit: Yes Status: Acute (9) CKD (chronic kidney disease), stage III Current Visit: Yes Status: Acute (10) Cholelithiasis Current Visit: Yes Status: Acute Qualifiers: Qualified Code(s): K80.20 - Calculus of gallbladder without cholecystitis without obstruction - Time Spent With Patient Total time spent is greater than 50% in coordination of care (as documented) at patient's floor/unit and/or counseling patient: - Constitutional Vitals: Temp Pulse Resp BP Pulse Ox 98.5 F 86 16 141/92 96 02/05/18 11:14 02/05/18 11:14 02/05/18 11:14 02/05/18 11:14 02/05/18 11:14 Internal Medicine: Result - Labs CBC & Chem 7: 02/05/18 04:56 02/05/18 04:56 Labs: Short CBC 02/05/18 Range/Units 04:56 WBC 10.1 (4.3-11.1) K/mcL Hgb 8.7 L (12.9-16.9) g/dL Hct 27.7 L (37.5-50.1) % Plt Count 206 (140-400) K/mcL Neutrophils # 8.1 (1.6-8.9) K/mcL BMP 02/05/18 04:56 Sodium 146 H Potassium 4.3 Chloride 117 H Carbon Dioxide 20 L BUN 28 H Creatinine 1.76 H Glucose 94 Calcium 7.5 L - ABG Interpretation ABG results: PT/INR, D-dimer PT 15.4 Seconds (9.4-12.1) H 02/03/18 04:58 - Attending Attestation SBO carcinoma of the cecum pathology report pending NG tube, IVF TPN to be started cholelithiasis, consider CYY in the future I examined this patient and my medical decision-making was reviewed with the Resident Physician. I agree with the documented findings, disposition and treatment plan as described except to the extent set forth below.
[2018-02-05] MEDS ORDERED: D10% in Water 500 ML IVC PRN (11:11)
[2018-02-05] MEDS ORDERED: 0.9 % Sodium Chloride 1,000 ML IVC SCH (14:35)
[2018-02-05] MEDS ORDERED: Clinimix E 5%-15% SOLUTION 2,000 ML with MVI, adult with vitamin K 10 ML IVC SCH (17:00)
[2018-02-06 04:02] LABS: Basophils % 0.2 %; Eosinophils # 0.3 K/mcL (0.0-0.6); Eosinophils % 4.2 %; Hematocrit 25.3 % (37.5-50.1); Hemoglobin 7.9 g/dL (12.9-16.9); Immature Granulocytes % 0.3 % (0-4); Lymphocytes # 0.7 K/mcL (0.6-4.6); Lymphocytes % 10.5 %; Mean Corpuscular HGB Conc 31.2 g/dL (31.6-35.5); Mean Corpuscular Hemoglobin 25.8 pg (28.0-33.3); Mean Corpuscular Volume 82.7 fL (83.0-100.0); Mean Platelet Volume 9.8 fL (9.4-12.4); Monocytes # 0.7 K/mcL (0.0-1.3); Monocytes % 10.5 %; Neutrophils # 4.6 K/mcL (1.6-8.9); Platelet Count 174 K/mcL (140-400); Red Blood Count 3.06 M/mcL (4.19-5.50); Red Cell Distribution Width 15.9 % (11.5-14.5); Segmented Neutrophils % 74.3 %
[2018-02-06] MEDS: OXYCODONE Oral CONC 10 MG/0.5 ML ORAL.SYG SL PRN ×2 (04:12→12:43)
[2018-02-06 04:22] LABS: BUN/Creatinine Ratio 16 (6-26); Blood Urea Nitrogen 22 mg/dL (8-23); Calcium 7.5 mg/dL (8.6-10.3); Carbon Dioxide 22 mEq/L (23-29); Chloride 116 mEq/L (98-107); Glucose 169 mg/dL (70-105); Osmolality,Calculated 305 (280-300); Potassium 3.9 mEq/L (3.5-5.1); Sodium 144 mEq/L (136-145); Triglycerides 205 mg/dL (< 150); eGFR For African Americans > 60 (> 60); eGFR For Non-African Americans 50 (> 60)
[2018-02-06] MEDS: *HR* Metoprolol 5 MG/5 ML VIAL IVP SCH (05:17)
[2018-02-06] MEDS: *HR* Heparin 5,000 UNIT/ML VIAL SQ SCH ×2 (05:17→17:29)
--- NOTE | 2018-02-06 08:39 | General Surgery Progress Note ---
<Sherwin Godoy - Last Filed: 02/06/18 16:01> Date of Encounter: 02/06/18 Time of Encounter: 09:00 - Assessment and Plan (1) Mass of cecum Current Visit: No Status: Acute POD#3 ExLap, R colectomy w/ Dr. Gonzales VSS, improved creatinine Plan: Encouraging patient to participate in PT/OT, continue incentive spirometry Continue NG/Paz/TPN Strict I/Os IV fluids adjusted per TPN goals; currently 25cc/hr (2) Retroperitoneal mass Current Visit: Yes Status: Acute Pathology- Retroperitoneal mass, core biopsy: Positive for metastatic carcinoma. See comment. 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 Tumor seems to invade the soft tissue and bone. Immunohistochemical stains performed (reported below) are suggestive of lower gastrointestinal tract as a primary site. (3) Metastasis to liver Current Visit: Yes Status: Acute Dr. Garcia oncology, last clinic visit 01/30/18. Per chart review, plan for f/u and chemotherapy with Dr. Garcia after this admission for R colectomy. (4) Anemia of chronic disease Current Visit: Yes Status: Acute 8.7; adynamic, VSS, monitoring (5) CKD (chronic kidney disease), stage III Current Visit: Yes Status: Acute 1.76, which is his baseline; continuing IV fluids at 125cc/h strict I&Os continue paz (6) DVT prophylaxis Current Visit: Yes Status: Acute heparin sq q12 Subjective Narrative: Mr. Mcfarland seen and evaluated, today he is accompanied by his , he is seated in an armchair by the bed. He reports good pain control, no BMs/flatus, good UOP with catheterization, he is tolerating his TPN. He denies fever, nausea /vomitting, chest discomfort, or difficulty breathing. Objective Vital Signs - Last 8 Hours Temp Pulse Resp BP Pulse Ox 02/06/18 06:52 97.9 F 74 16 151/73 94 02/06/18 05:16 78 151/76 02/06/18 04:00 99.3 F 75 17 160/77 96 Intake and Output 02/05/18 02/06/18 02/06/18 23:59 07:59 15:59 Intake Total 120 / 120 60 / 60 Output Total 850 / 850 250 / 250 Balance -730 / -730 -190 / -190 Intake: Oral 120 / 120 60 / 60 Output: Urine 300 / 300 Catheter 200 / 200 0 / 0 Gastric Drainage 350 / 350 250 / 250 Other: Meal NPO Blood Glucose* 143 168 - General physical appearance well developed, well nourished, no distress - Eyes normal ocular movement - Respiratory normal respiratory effort, clear to auscultation - Cardiovascular Cardiovascular exam: Present: RRR, no murmurs/rubs/gallops. Absent: JVD - Abdomen Abdomen: Present: bowel sounds present, soft. Absent: guarding, rigid - Neurologic normal coordination, normal sensation - Psychiatric speech is normal, memory intact - Labs 02/06/18 03:43 02/06/18 03:43 Diabetes panel 02/06/18 Range/Units 03:43 Sodium 144 (136-145) mEq/L Potassium 3.9 (3.5-5.1) mEq/L Chloride 116 H (98-107) mEq/L Carbon Dioxide 22 L (23-29) mEq/L BUN 22 (8-23) mg/dL Creatinine 1.38 H (0.70-1.30) mg/dL Glucose 169 H (70-105) mg/dL Calcium 7.5 L (8.6-10.3) mg/dL Triglycerides 205 H (< 150) mg/dL Calcium panel 02/05/18 02/06/18 Range/Units 09:40 03:43 Calcium 7.5 L (8.6-10.3) mg/dL Phosphorus 2.3 L 2.0 L (2.7-4.5) mg/dL Pituitary panel 02/06/18 Range/Units 03:43 Sodium 144 (136-145) mEq/L Potassium 3.9 (3.5-5.1) mEq/L Chloride 116 H (98-107) mEq/L Carbon Dioxide 22 L (23-29) mEq/L BUN 22 (8-23) mg/dL Creatinine 1.38 H (0.70-1.30) mg/dL Glucose 169 H (70-105) mg/dL Calcium 7.5 L (8.6-10.3) mg/dL Adrenal panel 02/06/18 Range/Units 03:43 Sodium 144 (136-145) mEq/L Potassium 3.9 (3.5-5.1) mEq/L Chloride 116 H (98-107) mEq/L Carbon Dioxide 22 L (23-29) mEq/L BUN 22 (8-23) mg/dL Creatinine 1.38 H (0.70-1.30) mg/dL Glucose 169 H (70-105) mg/dL Calcium 7.5 L (8.6-10.3) mg/dL - VTE Documentation of Mechanical Device: Intermittent pneumatic compression device Consult Discharge Plan - Plan Referrals: Lorene Gonzales MD [Partnered Physician] - 02/18/18 11:05 am <Lorene Gonzales - Last Filed: 02/07/18 14:00> Date of Encounter: 02/06/18 - Assessment and Plan (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 pathology pending (2) Metastatic colon cancer to liver Current Visit: Yes Status: Chronic (3) Retroperitoneal mass Current Visit: Yes Status: Acute (4) S/P colectomy Current Visit: Yes Status: Acute s/p open right colecotmy continue pain control continue ngt liws - pt with post op ileus, not an unexpected outcome of his surgery or disease process anemia - monitor ok ice chips/popcicles, continue TPN gi/dvt prophylaxis OOB ambulate aggressive pulmonary toilet decrease IVF rate Subjective Patient reports: still having pain, pain is less, no flatus, no bowel movement, afebrile Objective Vital Signs - Last 8 Hours Temp Pulse Resp BP Pulse Ox 02/07/18 11:44 16 97 02/07/18 11:22 98.8 F 72 16 155/70 97 02/07/18 08:06 98.0 F 94 16 121/76 94 Intake and Output 02/06/18 02/07/18 02/07/18 23:59 07:59 15:59 Intake Total 1136 / 1136 370 / 370 Output Total 800 / 800 600 / 600 650 / 650 Balance 336 / 336 -230 / -230 -650 / -650 Intake: IV Fluids 1136 / 1136 250 / 250 Clinimix E 5%-15% SOLUTION 2, 1136 / 1136 000 ML @ 50 mls/hr IVC .Q24H [facility] with M.v.i. Adult 10 ml Rx# :[id number] Intralipid 20% 250 ML @ 21 mls/ 250 / 250 hr IVPB DAILY@1700 [facility] Rx#: [id number] Oral 0 / 0 120 / 120 Output: Urine 400 / 400 400 / 400 250 / 250 Gastric Drainage 400 / 400 200 / 200 400 / 400 Other: Meal NPO LUNCH Weight 11.294 kg Blood Glucose* 184 217 217 Patient Weight 02/07/18 23:59 Weight 11.294 kg - General physical appearance well developed, well nourished, no distress - Eyes normal ocular movement - ENT normal mucosa, normocephalic - Neck Neck exam: trachea midline - Respiratory normal expansion, clear to auscultation - Cardiovascular Cardiovascular exam: Present: RRR - Abdomen Abdomen: Present: soft, tender. Absent: bowel sounds present, guarding, rebound - Incision Incision: Present: clean and dry, intact - Integumentary no rash, no growths - Neurologic normal sensation - Musculoskeletal normal gait, normal posture - Psychiatric oriented to time, oriented to person, memory intact - Labs 02/07/18 04:00 02/07/18 04:00 Diabetes panel 02/07/18 Range/Units 04:00 Sodium 146 H (136-145) mEq/L Potassium 3.3 L (3.5-5.1) mEq/L Chloride 118 H (98-107) mEq/L Carbon Dioxide 22 L (23-29) mEq/L BUN 19 (8-23) mg/dL Creatinine 1.16 (0.70-1.30) mg/dL Glucose 199 H (70-105) mg/dL Calcium 7.1 L (8.6-10.3) mg/dL Calcium panel 02/07/18 Range/Units 04:00 Calcium 7.1 L (8.6-10.3) mg/dL Phosphorus 2.2 L (2.7-4.5) mg/dL Pituitary panel 02/07/18 Range/Units 04:00 Sodium 146 H (136-145) mEq/L Potassium 3.3 L (3.5-5.1) mEq/L Chloride 118 H (98-107) mEq/L Carbon Dioxide 22 L (23-29) mEq/L BUN 19 (8-23) mg/dL Creatinine 1.16 (0.70-1.30) mg/dL Glucose 199 H (70-105) mg/dL Calcium 7.1 L (8.6-10.3) mg/dL Adrenal panel 02/07/18 Range/Units 04:00 Sodium 146 H (136-145) mEq/L Potassium 3.3 L (3.5-5.1) mEq/L Chloride 118 H (98-107) mEq/L Carbon Dioxide 22 L (23-29) mEq/L BUN 19 (8-23) mg/dL Creatinine 1.16 (0.70-1.30) mg/dL Glucose 199 H (70-105) mg/dL Calcium 7.1 L (8.6-10.3) mg/dL - Attending Attestation I examined this patient and my medical decision-making was reviewed with the Resident Physician. I agree with the documented findings, disposition and treatment plan as described except to the extent set forth below.
[2018-02-06] MEDS ORDERED: *HR* Metoprolol 5 MG/5 ML VIAL IVP SCH (09:30)
--- NOTE | 2018-02-06 09:55 | Internal Med Progress Note ---
<Tram Gilbert - Last Filed: 02/06/18 10:18> Date of Encounter: 02/06/18 Time of Encounter: 09:50 - Assessment and plan (1) SBO (small bowel obstruction) Current Visit: Yes Status: Acute Assessment and plan: -POD #3 exploratory laparotomy with right colectomy High-grade small bowel obstruction demonstrated by imaging. Secondary to adenocarcinoma of cecum Abd CT demonstrating large cecal mass at ileocecal valve compatible with carcinoma. High-grade small bowel show action. Liver lesions compatible with metastatic disease. 9 mm right lower lobe pulmonary nodules that may be metastases. Patient reports no abdominal pain just tenderness to the incision site. He has not passed gas or bowel movement yet. -patient reports abdominal pain is controlled. Denies passing gas or bowel movement. 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 BP controlled holding home amlodipine -hydralazine IV PRN Qualifiers: Hypertension type: essential hypertension Qualified Code(s): I10 - Essential (primary) hypertension (4) Diabetes Current Visit: Yes Status: Chronic Assessment and plan: History of diabetes well-controlled with Januvia. Blood pressure controlled not requiring insulin. Currently NPO will continue accu checks Qualifiers: Diabetes mellitus type: type 2 Diabetes mellitus termite technician insulin use: without fdc use Diabetes mellitus complication status: with kidney complications Diabetes mellitus complication detail: with chronic kidney disease Chronic kidney disease stage: stage 3 (moderate) Qualified Code(s): E11.22 - Type 2 diabetes mellitus with diabetic chronic kidney disease; N18.3 - Chronic kidney disease, stage 3 (moderate); N18.3 - Chronic kidney disease, stage 3 (moderate) (5) Anemia Current Visit: Yes Status: Chronic Assessment and plan: Anemia, likely due to colorectal cancer Hgb 7.9 (8.7) decreased no obvious active bleeding -will continue to monitor -2 units PRBC is ordered Qualifiers: Anemia type: iron deficiency Iron deficiency anemia type: chronic blood loss Qualified Code(s): D50.0 - Iron deficiency anemia secondary to blood loss (chronic) (6) Acute kidney injury Current Visit: Yes Status: Acute Assessment and plan: LIZ on CKD creatinine 1.38 at baseline -avoid nephrotoxic agents, IVF, monitor Scr (7) Metastatic colon cancer to liver Current Visit: Yes Status: Chronic Assessment and plan: Liver metastases demonstrate by abdominal CT Abd CT demonstrating large cecal mass at ileocecal valve compatible with carcinoma. High-grade small bowel show action. Liver lesions compatible with metastatic disease. 9 mm right lower lobe pulmonary nodules that may be metastases. Follow-up with oncology after discharge (8) CKD (chronic kidney disease), stage III Current Visit: Yes Status: Acute Assessment and plan: see plan above (9) DVT prophylaxis Current Visit: Yes Status: Acute Assessment and plan: Heparin SQ (10) Cholelithiasis Current Visit: Yes Status: Acute Assessment and plan: Cholelithiasis noted on abdominal CT. Spoke with surgery who stated that this was noted on previous images and does not think that intervention is needed. Qualifiers: Qualified Code(s): K80.20 - Calculus of gallbladder without cholecystitis without obstruction - Time Spent With Patient Total time spent is greater than 50% in coordination of care (as documented) at patient's floor/unit and/or counseling patient: - Subjective Interval history: Patient seen and examined at bedside sitting comfortably. He admits to abdominal pain but it is controlled. He denies nausea, vomiting, fever, chills. He is not passing gas are having a bowel movement yet. He still has his NG tube in and TPN with management by nutrition. - Constitutional Vitals: Temp Pulse Resp BP Pulse Ox 97.9 F 74 16 151/73 94 02/06/18 06:52 02/06/18 06:52 02/06/18 06:52 02/06/18 06:52 02/06/18 06:52 General appearance: Present: cooperative, A&O X 3, no acute distress, answers questions appropriately Exam: Gen.: Vitals noted. No acute distress. AAOx3 HEENT: oropharynx clear, Normocephalic, atraumatic Cardiac: RRR, no murmur, +S1/S2 Pulmonary: CTA bilaterally, no wheezes, rales or rhonchi, equal chest expansion Abdomen: soft, left lower quadrant tender, minimal Bowel sounds noted right upper quadrant, distended MSK: ROM intact, no joint swelling noted Extremities: no BLE edema, nontender calf, no cyanosis or clubbing Neuro: A&Ox3, moves all extremities, no focal deficits Psych: Appropriate mood and behavior Internal Medicine: Result - Labs CBC & Chem 7: 02/06/18 03:43 02/06/18 03:43 Labs: Short CBC 02/06/18 Range/Units 03:43 WBC 6.2 (4.3-11.1) K/mcL Hgb 7.9 L (12.9-16.9) g/dL Hct 25.3 L (37.5-50.1) % Plt Count 174 (140-400) K/mcL Neutrophils # 4.6 (1.6-8.9) K/mcL BMP 02/06/18 03:43 Sodium 144 Potassium 3.9 Chloride 116 H Carbon Dioxide 22 L BUN 22 Creatinine 1.38 H Glucose 169 H Calcium 7.5 L - ABG Interpretation ABG results: PT/INR, D-dimer PT 15.4 Seconds (9.4-12.1) H 02/03/18 04:58 - VTE Documentation of Mechanical Device: Intermittent pneumatic compression device Consult Discharge Plan - Plan Referrals: Lorene Gonzales MD [Partnered Physician] - 02/18/18 11:05 am <Ry Flores H - Last Filed: 02/06/18 13:34> Date of Encounter: 02/06/18 - Assessment and plan (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 (2) Hypertension Current Visit: Yes Status: Chronic Qualifiers: Hypertension type: essential hypertension Qualified Code(s): I10 - Essential (primary) hypertension (3) Diabetes Current Visit: Yes Status: Chronic Qualifiers: Diabetes mellitus type: type 2 Diabetes mellitus fdc insulin use: without termite technician use Diabetes mellitus complication status: with kidney complications Diabetes mellitus complication detail: with chronic kidney disease Chronic kidney disease stage: stage 3 (moderate) Qualified Code(s): E11.22 - Type 2 diabetes mellitus with diabetic chronic kidney disease; N18.3 - Chronic kidney disease, stage 3 (moderate); N18.3 - Chronic kidney disease, stage 3 (moderate) (4) DVT prophylaxis Current Visit: Yes Status: Acute (5) Anemia Current Visit: Yes Status: Chronic Qualifiers: Anemia type: iron deficiency Iron deficiency anemia type: chronic blood loss Qualified Code(s): D50.0 - Iron deficiency anemia secondary to blood loss (chronic) (6) Acute kidney injury Current Visit: Yes Status: Acute (7) Metastatic colon cancer to liver Current Visit: Yes Status: Chronic (8) SBO (small bowel obstruction) Current Visit: Yes Status: Acute (9) CKD (chronic kidney disease), stage III Current Visit: Yes Status: Acute (10) Cholelithiasis Current Visit: Yes Status: Acute Qualifiers: Qualified Code(s): K80.20 - Calculus of gallbladder without cholecystitis without obstruction - Time Spent With Patient Total time spent is greater than 50% in coordination of care (as documented) at patient's floor/unit and/or counseling patient: - Constitutional Vitals: Temp Pulse Resp BP Pulse Ox 97.9 F 74 16 151/73 94 02/06/18 06:52 02/06/18 06:52 02/06/18 06:52 02/06/18 06:52 02/06/18 06:52 Internal Medicine: Result - Labs CBC & Chem 7: 02/06/18 03:43 02/06/18 03:43 Labs: Short CBC 02/06/18 Range/Units 03:43 WBC 6.2 (4.3-11.1) K/mcL Hgb 7.9 L (12.9-16.9) g/dL Hct 25.3 L (37.5-50.1) % Plt Count 174 (140-400) K/mcL Neutrophils # 4.6 (1.6-8.9) K/mcL BMP 02/06/18 03:43 Sodium 144 Potassium 3.9 Chloride 116 H Carbon Dioxide 22 L BUN 22 Creatinine 1.38 H Glucose 169 H Calcium 7.5 L - ABG Interpretation ABG results: PT/INR, D-dimer PT 15.4 Seconds (9.4-12.1) H 02/03/18 04:58 - Attending Attestation SBO carcinoma of the cecum pathology report pending NG tube, IVF TPN cholelithiasis, consider CYY in the future I examined this patient and my medical decision-making was reviewed with the Resident Physician. I agree with the documented findings, disposition and treatment plan as described except to the extent set forth below.
[2018-02-06] MEDS ORDERED: D5% in Water 1,000 ML IVC PRN (10:14)
[2018-02-06] MEDS ORDERED: Dextrose Gel 15 GM/37.5 ML TUBE PO PRN ×2 (10:14)
[2018-02-06] MEDS ORDERED: *HR* Dextrose 50 % in Water (Syg) 50 ML SYRINGE IVP PRN (10:14)
[2018-02-06] MEDS: Pantoprazole 40 MG VIAL IVP SCH (10:18)
[2018-02-06] MEDS: 0.9 % Sodium Chloride 1,000 ML IVC SCH (12:31)
[2018-02-06] MEDS: Insulin LISPRO 300 UNITS/3 ML VIAL SQ SCH ×3 (12:43→21:05)
[2018-02-06] MEDS: Ipratropium/Albuterol Neb 3 ML IH SCH ×2 (15:53→20:36)
[2018-02-06] MEDS ORDERED: Clinimix E 5%-15% SOLUTION 2,000 ML with MVI, adult with vitamin K 10 ML IVC SCH (17:00)
[2018-02-06] MEDS: *HR* FentaNYL PATCH 25 MCG PATCH TD SCH (17:28)
[2018-02-07] MEDS: Ipratropium/Albuterol Neb 3 ML IH SCH ×7 (00:10→23:35)
[2018-02-07] MEDS: Insulin LISPRO 300 UNITS/3 ML VIAL SQ SCH ×8 (00:29→19:57)
[2018-02-07] MEDS: OXYCODONE Oral CONC 10 MG/0.5 ML ORAL.SYG SL PRN ×3 (04:23→19:56)
[2018-02-07 04:30] LABS: Basophils % 0.3 %; Eosinophils # 0.1 K/mcL (0.0-0.6); Eosinophils % 3.3 %; Hematocrit 23.1 % (37.5-50.1); Hemoglobin 7.2 g/dL (12.9-16.9); Immature Granulocytes % 0.5 % (0-4); Lymphocytes # 0.5 K/mcL (0.6-4.6); Lymphocytes % 13.5 %; Mean Corpuscular HGB Conc 31.2 g/dL (31.6-35.5); Mean Corpuscular Hemoglobin 25.6 pg (28.0-33.3); Mean Corpuscular Volume 82.2 fL (83.0-100.0); Mean Platelet Volume 10.1 fL (9.4-12.4); Monocytes # 0.5 K/mcL (0.0-1.3); Monocytes % 13.7 %; Neutrophils # 2.7 K/mcL (1.6-8.9); Platelet Count 155 K/mcL (140-400); Red Blood Count 2.81 M/mcL (4.19-5.50); Red Cell Distribution Width 15.9 % (11.5-14.5); Segmented Neutrophils % 68.7 %
[2018-02-07 04:55] LABS: BUN/Creatinine Ratio 16 (6-26); Blood Urea Nitrogen 19 mg/dL (8-23); Calcium 7.1 mg/dL (8.6-10.3); Carbon Dioxide 22 mEq/L (23-29); Chloride 118 mEq/L (98-107); Glucose 199 mg/dL (70-105); Magnesium 1.9 mg/dL (1.6-2.6); Osmolality,Calculated 310 (280-300); Phosphorous 2.2 mg/dL (2.7-4.5); Potassium 3.3 mEq/L (3.5-5.1); Sodium 146 mEq/L (136-145); eGFR For African Americans > 60 (> 60); eGFR For Non-African Americans > 60 (> 60)
[2018-02-07] MEDS: *HR* Heparin 5,000 UNIT/ML VIAL SQ SCH ×2 (05:29→18:29)
[2018-02-07] MEDS: 0.9 % Sodium Chloride 1,000 ML IVC SCH (06:42)
[2018-02-07] MEDS: Pantoprazole 40 MG VIAL IVP SCH (08:41)
--- NOTE | 2018-02-07 10:50 | General Surgery Progress Note ---
<Sherwin Godoy - Last Filed: 02/07/18 13:55> Date of Encounter: 02/07/18 Time of Encounter: 07:45 - Assessment and Plan (1) Mass of cecum Current Visit: No Status: Acute POD#4 exploratory laparotomy, R colectomy w/ Dr. Gonzales VSS, improved creatinine 1.16 (1.38) Monitoring his hgb 7.2 (7.8) will watch, no complaint of dizziness, no abdominal tenderness/distension, does have bowel sounds Plan: Encouraging PT/OT, continue incentive spirometry Apz discontinued, UOP 450cc today Continue NG and TPN Strict I/Os IV fluids adjusted per TPN goals; currently 25cc/hr (2) Retroperitoneal mass Current Visit: Yes Status: Acute Pathology- Retroperitoneal mass, core biopsy: Positive for metastatic carcinoma. See comment. 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 Tumor seems to invade the soft tissue and bone. Immunohistochemical stains performed (reported below) are suggestive of lower gastrointestinal tract as a primary site. (3) Metastasis to liver Current Visit: Yes Status: Acute Dr. Garcia oncology, last clinic visit 01/30/18. Per chart review, plan for f/u and chemotherapy with Dr. Garcia after this admission for R colectomy. (4) Anemia of chronic disease Current Visit: Yes Status: Acute 8.7; adynamic, VSS, monitoring (5) CKD (chronic kidney disease), stage III Current Visit: Yes Status: Acute 1.76, which is his baseline; continuing IV fluids at 125cc/h strict I&Os continue paz (6) DVT prophylaxis Current Visit: Yes Status: Acute heparin sq q12 Subjective Narrative: Patient seen and evaluated at bedside, present. Pain is adequately controlled, no BMs yet, apz has been discontinued, he denies dysuria, no discomfort from NG tube. Objective Vital Signs - Last 8 Hours Temp Pulse Resp BP Pulse Ox 02/07/18 08:06 98.0 F 94 16 121/76 94 02/07/18 04:40 16 95 02/07/18 03:51 98.3 F 81 14 142/66 95 Intake and Output 02/06/18 02/07/18 02/07/18 23:59 07:59 15:59 Intake Total 1136 / 1136 370 / 370 Output Total 800 / 800 600 / 600 Balance 336 / 336 -230 / -230 Intake: IV Fluids 1136 / 1136 250 / 250 Clinimix E 5%-15% SOLUTION 2, 1136 / 1136 000 ML @ 50 mls/hr IVC .Q24H LEA with M.v.i. Adult 10 ml Rx# :[id number] Intralipid 20% 250 ML @ 21 mls/ 250 / 250 hr IVPB DAILY@1700 LEA Rx#: [id number] Oral 0 / 0 120 / 120 Output: Urine 400 / 400 400 / 400 Gastric Drainage 400 / 400 200 / 200 Other: Meal NPO BREAKFAST Weight 11.294 kg Blood Glucose* 184 217 236 Patient Weight 02/07/18 23:59 Weight 11.294 kg - General physical appearance well developed, well nourished, no distress - Eyes normal ocular movement - Neck Neck exam: no lymphadectomy - Respiratory normal respiratory effort, clear to auscultation - Abdomen Abdomen: Present: soft, non tender - Incision Incision: Present: clean and dry. Absent: red, swollen, inflamed - Integumentary no abnormal pigmentation - Neurologic normal sensation - Musculoskeletal normal posture - Psychiatric speech is normal, memory intact - Labs 02/07/18 04:00 02/07/18 04:00 Diabetes panel 02/07/18 Range/Units 04:00 Sodium 146 H (136-145) mEq/L Potassium 3.3 L (3.5-5.1) mEq/L Chloride 118 H (98-107) mEq/L Carbon Dioxide 22 L (23-29) mEq/L BUN 19 (8-23) mg/dL Creatinine 1.16 (0.70-1.30) mg/dL Glucose 199 H (70-105) mg/dL Calcium 7.1 L (8.6-10.3) mg/dL Calcium panel 02/07/18 Range/Units 04:00 Calcium 7.1 L (8.6-10.3) mg/dL Phosphorus 2.2 L (2.7-4.5) mg/dL Pituitary panel 02/07/18 Range/Units 04:00 Sodium 146 H (136-145) mEq/L Potassium 3.3 L (3.5-5.1) mEq/L Chloride 118 H (98-107) mEq/L Carbon Dioxide 22 L (23-29) mEq/L BUN 19 (8-23) mg/dL Creatinine 1.16 (0.70-1.30) mg/dL Glucose 199 H (70-105) mg/dL Calcium 7.1 L (8.6-10.3) mg/dL Adrenal panel 02/07/18 Range/Units 04:00 Sodium 146 H (136-145) mEq/L Potassium 3.3 L (3.5-5.1) mEq/L Chloride 118 H (98-107) mEq/L Carbon Dioxide 22 L (23-29) mEq/L BUN 19 (8-23) mg/dL Creatinine 1.16 (0.70-1.30) mg/dL Glucose 199 H (70-105) mg/dL Calcium 7.1 L (8.6-10.3) mg/dL - VTE Documentation of Mechanical Device: Intermittent pneumatic compression device Consult Discharge Plan - Plan Referrals: Lorene Gonzales MD [Partnered Physician] - 02/18/18 11:05 am <Lorene Gonzales - Last Filed: 02/07/18 14:04> Date of Encounter: 02/07/18 - Assessment and Plan (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 (2) Metastatic colon cancer to liver Current Visit: Yes Status: Chronic (3) Retroperitoneal mass Current Visit: Yes Status: Acute (4) S/P colectomy Current Visit: Yes Status: Acute s/p right colectomy post op ileus not unexpected, await return bowel function continue tpn prn pain control gi/dvt prophylaxis cont ngt LIWS ok ice/popcicles aggressive pulmonary toilet ambulate (5) Anemia of chronic disease Current Visit: Yes Status: Acute (6) CKD (chronic kidney disease), stage III Current Visit: Yes Status: Acute (7) DVT prophylaxis Current Visit: Yes Status: Acute (8) Protein-calorie malnutrition, moderate Current Visit: Yes Status: Chronic continue tpn Subjective Patient reports: no new complaints, pain is less, no flatus, no bowel movement, afebrile Objective Vital Signs - Last 8 Hours Temp Pulse Resp BP Pulse Ox 02/07/18 13:56 97.9 F 73 16 151/70 97 02/07/18 11:44 16 97 02/07/18 11:22 98.8 F 72 16 155/70 97 02/07/18 08:06 98.0 F 94 16 121/76 94 Intake and Output 02/06/18 02/07/18 02/07/18 23:59 07:59 15:59 Intake Total 1136 / 1136 370 / 370 Output Total 800 / 800 600 / 600 650 / 650 Balance 336 / 336 -230 / -230 -650 / -650 Intake: IV Fluids 1136 / 1136 250 / 250 Clinimix E 5%-15% SOLUTION 2, 1136 / 1136 000 ML @ 50 mls/hr IVC .Q24H LEA with M.v.i. Adult 10 ml Rx# :[id number] Intralipid 20% 250 ML @ 21 mls/ 250 / 250 hr IVPB DAILY@1700 LEA Rx#: [id number] Oral 0 / 0 120 / 120 Output: Urine 400 / 400 400 / 400 250 / 250 Gastric Drainage 400 / 400 200 / 200 400 / 400 Other: Meal NPO LUNCH Weight 11.294 kg Blood Glucose* 184 217 217 Patient Weight 02/07/18 23:59 Weight 11.294 kg - General physical appearance well nourished, no distress - Eyes PERRL, normal ocular movement - ENT normal mucosa, normocephalic - Neck Neck exam: trachea midline - Respiratory normal expansion, clear to auscultation - Cardiovascular Cardiovascular exam: Present: RRR - Abdomen Abdomen: Present: soft, tender. Absent: bowel sounds present, guarding, rebound - Incision Incision: Present: clean and dry, intact - Integumentary no abnormal pigmentation - Musculoskeletal normal posture - Psychiatric oriented to time, oriented to person, oriented to place, speech is normal, memory intact - Labs 02/07/18 04:00 02/07/18 04:00 Diabetes panel 02/07/18 Range/Units 04:00 Sodium 146 H (136-145) mEq/L Potassium 3.3 L (3.5-5.1) mEq/L Chloride 118 H (98-107) mEq/L Carbon Dioxide 22 L (23-29) mEq/L BUN 19 (8-23) mg/dL Creatinine 1.16 (0.70-1.30) mg/dL Glucose 199 H (70-105) mg/dL Calcium 7.1 L (8.6-10.3) mg/dL Calcium panel 02/07/18 Range/Units 04:00 Calcium 7.1 L (8.6-10.3) mg/dL Phosphorus 2.2 L (2.7-4.5) mg/dL Pituitary panel 02/07/18 Range/Units 04:00 Sodium 146 H (136-145) mEq/L Potassium 3.3 L (3.5-5.1) mEq/L Chloride 118 H (98-107) mEq/L Carbon Dioxide 22 L (23-29) mEq/L BUN 19 (8-23) mg/dL Creatinine 1.16 (0.70-1.30) mg/dL Glucose 199 H (70-105) mg/dL Calcium 7.1 L (8.6-10.3) mg/dL Adrenal panel 02/07/18 Range/Units 04:00 Sodium 146 H (136-145) mEq/L Potassium 3.3 L (3.5-5.1) mEq/L Chloride 118 H (98-107) mEq/L Carbon Dioxide 22 L (23-29) mEq/L BUN 19 (8-23) mg/dL Creatinine 1.16 (0.70-1.30) mg/dL Glucose 199 H (70-105) mg/dL Calcium 7.1 L (8.6-10.3) mg/dL - Attending Attestation I examined this patient and my medical decision-making was reviewed with the Resident Physician. I agree with the documented findings, disposition and treatment plan as described except to the extent set forth below.
--- NOTE | 2018-02-07 13:52 | Internal Med Progress Note ---
Date of Encounter: 02/07/18 Time of Encounter: 13:50 - Assessment and plan (1) SBO (small bowel obstruction) Current Visit: Yes Status: Acute Assessment and plan: Secondary to colonic/cecal mass -POD #4 exploratory laparotomy with right colectomy High-grade small bowel obstruction demonstrated by imaging. Secondary to adenocarcinoma of cecum Abd CT demonstrating large cecal mass at ileocecal valve compatible with carcinoma. High-grade small bowel show action. Liver lesions compatible with metastatic disease. 9 mm right lower lobe pulmonary nodules that may be metastases. 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 BP controlled holding home amlodipine -hydralazine IV PRN Qualifiers: Hypertension type: essential hypertension Qualified Code(s): I10 - Essential (primary) hypertension (4) Diabetes Current Visit: Yes Status: Chronic Assessment and plan: History of diabetes well-controlled with Januvia. Insulin sliding scale Currently NPO will continue accu checks Qualifiers: Diabetes mellitus type: type 2 Diabetes mellitus care home insulin use: without long term care pharmacist use Diabetes mellitus complication status: with kidney complications Diabetes mellitus complication detail: with chronic kidney disease Chronic kidney disease stage: stage 3 (moderate) Qualified Code(s): E11.22 - Type 2 diabetes mellitus with diabetic chronic kidney disease; N18.3 - Chronic kidney disease, stage 3 (moderate); N18.3 - Chronic kidney disease, stage 3 (moderate) (5) Anemia Current Visit: Yes Status: Chronic Assessment and plan: Anemia, likely due to colorectal cancer no obvious active bleeding -will continue to monitor Consider transfusion Qualifiers: Anemia type: iron deficiency Iron deficiency anemia type: chronic blood loss Qualified Code(s): D50.0 - Iron deficiency anemia secondary to blood loss (chronic) (6) Acute kidney injury Current Visit: Yes Status: Acute Assessment and plan: LIZ on CKD creatinine 1.38 at baseline -avoid nephrotoxic agents, IVF, monitor Scr (7) Metastatic colon cancer to liver Current Visit: Yes Status: Chronic Assessment and plan: Liver metastases demonstrate by abdominal CT Abd CT demonstrating large cecal mass at ileocecal valve compatible with carcinoma. High-grade small bowel show action. Liver lesions compatible with metastatic disease. 9 mm right lower lobe pulmonary nodules that may be metastases. Follow-up with oncology after discharge (8) CKD (chronic kidney disease), stage III Current Visit: Yes Status: Acute Assessment and plan: see plan above (9) Cholelithiasis Current Visit: Yes Status: Acute Assessment and plan: Cholelithiasis noted on abdominal CT. Spoke with surgery who stated that this was noted on previous images and does not think that intervention is needed. Qualifiers: Qualified Code(s): K80.20 - Calculus of gallbladder without cholecystitis without obstruction - Time Spent With Patient Total time spent is greater than 50% in coordination of care (as documented) at patient's floor/unit and/or counseling patient: - Subjective Interval history: Complaining of minimal abdominal pain while moving around, not passing gas yet, denies any chest pain, no shortness of breath, no dysuria, no fevers - Constitutional Vitals: Temp Pulse Resp BP Pulse Ox 98.8 F 72 16 155/70 97 02/07/18 11:22 02/07/18 11:22 02/07/18 11:44 02/07/18 11:22 02/07/18 11:44 General appearance: Present: cooperative, A&O X 3, no acute distress, answers questions appropriately Exam: NG tube in place - Head Head exam: Present: atraumatic, normocephalic - Eye Eye exam: Present: PERRL, conjuntiva pink, sclera anicteric Pupils: Present: PERRL - Neck Neck exam general surgery: Present: supple, trachea midline. Absent: lymphadenopathy - Respiratory Respiratory exam: Present: CTAB. Absent: accessory muscle use, rales, rhonchi, wheezes - Cardiovascular Cardiovascular exam: Present: RRR, +S1, +S2. Absent: diastolic murmur, gallop, rubs, systolic murmur - GI/Abdominal GI/Abdominal exam: Present: normal bowel sounds, soft, no peritoneal signs. Absent: distended, tenderness Additional comments: Distended, no bowel sounds heard Mid abdominal surgical wound that signs of infection or hematoma - Extremities Exam Extremities exam: Present: warm, radial pulses palpable and symmetrical. Absent : calf tenderness, cyanotic, pedal edema - Neurological Exam Neurological exam: Present: CN II-XII intact, oriented X3, no focal deficits. Absent: pronater drift, facial droop, speech deficit - Skin Skin exam: Present: dry, intact Internal Medicine: Result - Labs CBC & Chem 7: 02/07/18 04:00 02/07/18 04:00 Labs: Short CBC 02/07/18 Range/Units 04:00 WBC 3.9 L (4.3-11.1) K/mcL Hgb 7.2 L (12.9-16.9) g/dL Hct 23.1 L (37.5-50.1) % Plt Count 155 (140-400) K/mcL Neutrophils # 2.7 (1.6-8.9) K/mcL BMP 02/07/18 04:00 Sodium 146 H Potassium 3.3 L Chloride 118 H Carbon Dioxide 22 L BUN 19 Creatinine 1.16 Glucose 199 H Calcium 7.1 L - ABG Interpretation ABG results: PT/INR, D-dimer PT 15.4 Seconds (9.4-12.1) H 02/03/18 04:58 - VTE Documentation of Mechanical Device: Intermittent pneumatic compression device Consult Discharge Plan - Plan Referrals: Lorene Gonzales MD [Partnered Physician] - 02/18/18 11:05 am
[2018-02-07] MEDS ORDERED: Clinimix E 5%-15% SOLUTION 2,000 ML with MVI, adult with vitamin K 10 ML IVC SCH (17:00)
[2018-02-07] MEDS: Metoclopramide 10 MG/2 ML VIAL IVP SCH (18:29)
[2018-02-08] MEDS: Insulin LISPRO 300 UNITS/3 ML VIAL SQ SCH ×12 (00:12→21:13)
[2018-02-08] MEDS: Metoclopramide 10 MG/2 ML VIAL IVP SCH ×4 (00:14→18:29)
[2018-02-08] MEDS: Ipratropium/Albuterol Neb 3 ML IH SCH ×6 (04:01→23:30)
[2018-02-08 04:37] LABS: Basophils % 0.2 %; Eosinophils # 0.3 K/mcL (0.0-0.6); Eosinophils % 5.7 %; Hematocrit 23.9 % (37.5-50.1); Hemoglobin 7.4 g/dL (12.9-16.9); Immature Granulocytes % 0.9 % (0-4); Lymphocytes # 0.6 K/mcL (0.6-4.6); Lymphocytes % 13.1 %; Mean Corpuscular Hemoglobin 25.5 pg (28.0-33.3); Mean Corpuscular Volume 82.4 fL (83.0-100.0); Mean Platelet Volume 10.4 fL (9.4-12.4); Monocytes # 0.5 K/mcL (0.0-1.3); Monocytes % 12.4 %; Neutrophils # 2.9 K/mcL (1.6-8.9); Platelet Count 171 K/mcL (140-400); Red Cell Distribution Width 15.9 % (11.5-14.5); Segmented Neutrophils % 67.7 %
[2018-02-08 05:05] LABS: BUN/Creatinine Ratio 17 (6-26); Blood Urea Nitrogen 20 mg/dL (8-23); Calcium 7.6 mg/dL (8.6-10.3); Carbon Dioxide 24 mEq/L (23-29); Chloride 115 mEq/L (98-107); Glucose 214 mg/dL (70-105); Magnesium 1.9 mg/dL (1.6-2.6); Osmolality,Calculated 307 (280-300); Phosphorous 2.4 mg/dL (2.7-4.5); Potassium 3.5 mEq/L (3.5-5.1); Sodium 144 mEq/L (136-145); eGFR For African Americans > 60 (> 60); eGFR For Non-African Americans > 60 (> 60)
[2018-02-08] MEDS: *HR* Heparin 5,000 UNIT/ML VIAL SQ SCH ×2 (05:18→18:29)
[2018-02-08] MEDS: 0.9 % Sodium Chloride 1,000 ML IVC SCH (08:08)
[2018-02-08] MEDS: Pantoprazole 40 MG VIAL IVP SCH (08:09)
--- NOTE | 2018-02-08 08:47 | Internal Med Progress Note ---
Date of Encounter: 02/08/18 Time of Encounter: 08:45 - Assessment and plan (1) SBO (small bowel obstruction) Current Visit: Yes Status: Acute Assessment and plan: Secondary to colonic/cecal mass -POD #5 exploratory laparotomy with right colectomy High-grade small bowel obstruction demonstrated by imaging. Secondary to adenocarcinoma of cecum Abd CT demonstrating large cecal mass at ileocecal valve compatible with carcinoma. High-grade small bowel show action. Liver lesions compatible with metastatic disease. 9 mm right lower lobe pulmonary nodules that may be metastases. 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 BP controlled holding home amlodipine -hydralazine IV PRN Qualifiers: Hypertension type: essential hypertension Qualified Code(s): I10 - Essential (primary) hypertension (4) Diabetes Current Visit: Yes Status: Chronic Assessment and plan: History of diabetes well-controlled with Januvia. 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 Diabetes mellitus complication status: with kidney complications Diabetes mellitus complication detail: with chronic kidney disease Chronic kidney disease stage: stage 3 (moderate) Qualified Code(s): E11.22 - Type 2 diabetes mellitus with diabetic chronic kidney disease; N18.3 - Chronic kidney disease, stage 3 (moderate); N18.3 - Chronic kidney disease, stage 3 (moderate) (5) Anemia Current Visit: Yes Status: Chronic Assessment and plan: Anemia, likely due to colorectal cancer no obvious active bleeding -will continue to monitor Consider transfusion Qualifiers: Anemia type: iron deficiency Iron deficiency anemia type: chronic blood loss Qualified Code(s): D50.0 - Iron deficiency anemia secondary to blood loss (chronic) (6) Acute kidney injury Current Visit: Yes Status: Acute Assessment and plan: LIZ on CKD creatinine 1.38 at baseline -avoid nephrotoxic agents, IVF, monitor Scr (7) Metastatic colon cancer to liver Current Visit: Yes Status: Chronic Assessment and plan: Liver metastases demonstrate by abdominal CT Abd CT demonstrating large cecal mass at ileocecal valve compatible with carcinoma. High-grade small bowel show action. Liver lesions compatible with metastatic disease. 9 mm right lower lobe pulmonary nodules that may be metastases. Follow-up with oncology after discharge (8) CKD (chronic kidney disease), stage III Current Visit: Yes Status: Acute Assessment and plan: see plan above (9) Cholelithiasis Current Visit: Yes Status: Acute Assessment and plan: Cholelithiasis noted on abdominal CT. Spoke with surgery who stated that this was noted on previous images and does not think that intervention is needed. Qualifiers: Qualified Code(s): K80.20 - Calculus of gallbladder without cholecystitis without obstruction - Time Spent With Patient Total time spent is greater than 50% in coordination of care (as documented) at patient's floor/unit and/or counseling patient: - Subjective Interval history: Minimal abdominal pain while moving around, not passing gas yet, denies any chest pain, no shortness of breath, no dysuria, no fevers - Constitutional Vitals: Temp Pulse Resp BP Pulse Ox 98.9 F 86 18 134/67 93 02/08/18 06:43 02/08/18 06:43 02/08/18 08:07 02/08/18 06:43 02/08/18 08:07 General appearance: Present: cooperative, A&O X 3, no acute distress, answers questions appropriately Exam: NG tube in place - Head Head exam: Present: atraumatic, normocephalic - Eye Eye exam: Present: PERRL, conjuntiva pink, sclera anicteric Pupils: Present: PERRL - Neck Neck exam general surgery: Present: supple, trachea midline. Absent: lymphadenopathy - Respiratory Respiratory exam: Present: CTAB. Absent: accessory muscle use, rales, rhonchi, wheezes - Cardiovascular Cardiovascular exam: Present: RRR, +S1, +S2. Absent: diastolic murmur, gallop, rubs, systolic murmur - GI/Abdominal GI/Abdominal exam: Present: normal bowel sounds, soft, no peritoneal signs. Absent: distended, tenderness Additional comments: Distended, no bowel sounds heard Mid abdominal surgical wound that signs of infection or hematoma - Extremities Exam Extremities exam: Present: warm, radial pulses palpable and symmetrical. Absent : calf tenderness, cyanotic, pedal edema - Neurological Exam Neurological exam: Present: CN II-XII intact, oriented X3, no focal deficits. Absent: pronater drift, facial droop, speech deficit - Skin Skin exam: Present: dry, intact Internal Medicine: Result - Labs CBC & Chem 7: 02/08/18 04:00 02/08/18 04:00 Labs: Short CBC 02/08/18 Range/Units 04:00 WBC 4.4 (4.3-11.1) K/mcL Hgb 7.4 L (12.9-16.9) g/dL Hct 23.9 L (37.5-50.1) % Plt Count 171 (140-400) K/mcL Neutrophils # 2.9 (1.6-8.9) K/mcL BMP 02/08/18 04:00 Sodium 144 Potassium 3.5 Chloride 115 H Carbon Dioxide 24 BUN 20 Creatinine 1.17 Glucose 214 H Calcium 7.6 L - ABG Interpretation ABG results: PT/INR, D-dimer PT 15.4 Seconds (9.4-12.1) H 02/03/18 04:58 - VTE Documentation of Mechanical Device: Intermittent pneumatic compression device Consult Discharge Plan - Plan Referrals: Lorene Gonzales MD [Partnered Physician] - 02/18/18 11:05 am
[2018-02-08] MEDS ORDERED: Bisacodyl 10 MG RECTAL SUPPOSITORY RC ONE (10:18)
--- NOTE | 2018-02-08 11:03 | General Surgery Progress Note ---
<Sherwin Godoy - Last Filed: 02/08/18 11:08> Date of Encounter: 02/08/18 Time of Encounter: 10:35 - Assessment and Plan (1) Mass of cecum Current Visit: No Status: Acute POD#5 exploratory laparotomy, R colectomy w/ Dr. Gonzales VSS, improved creatinine 1.17 (1.16, 1.38) Monitoring his hgb 7.4 (7.2,7.8); adynamic, will watch, no complaint of dizziness, no abdominal tenderness/distension, does have bowel sounds Plan: Encouraging PT/OT, continue incentive spirometry Continues to have good UOP Continue NG and TPN Strict I/Os IV fluids per TPN goals; currently 25cc/hr (2) Retroperitoneal mass Current Visit: Yes Status: Acute Pathology- Retroperitoneal mass, core biopsy: Positive for metastatic carcinoma. See comment. 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 Tumor seems to invade the soft tissue and bone. Immunohistochemical stains performed (reported below) are suggestive of lower gastrointestinal tract as a primary site. (3) Metastasis to liver Current Visit: Yes Status: Acute Dr. Garcia oncology, last clinic visit 01/30/18. Per chart review, plan for f/u and chemotherapy with Dr. Garcia after this admission for R colectomy. (4) Anemia of chronic disease Current Visit: Yes Status: Acute 7.4 (7.2); adynamic, VSS, monitoring (5) CKD (chronic kidney disease), stage III Current Visit: Yes Status: Acute 1.17, improved over baseline; continuing IV fluids at 25cc/h strict I&Os paz discontinued (6) DVT prophylaxis Current Visit: Yes Status: Acute heparin sq q12 Subjective Narrative: POD5 exploratory laparotomy, R colectomy w/ Dr. Gonzales, patient seen and evaluated at bedside, accompanied by and neighbors. Patient states his pain is well controlled, has not had a BM/flatus, no distension/abdominal bloating, he is tolerating his TPN, UOP consistent, his surgical site does not bother him, he continues to use IS. Objective Vital Signs - Last 8 Hours Temp Pulse Resp BP Pulse Ox 02/08/18 08:07 18 93 02/08/18 06:43 98.9 F 86 16 134/67 94 02/08/18 04:45 99.0 F 87 15 135/61 93 Intake and Output 02/07/18 02/08/18 02/08/18 23:59 07:59 15:59 Intake Total 120 / 120 120 / 120 1000 / 1000 Output Total 550 / 550 1175 / 1175 Balance -430 / -430 -1055 / -1055 1000 / 1000 Intake: IV Fluids 1000 / 1000 0.9 % Sodium Chloride 1,000 ML 1000 / 1000 @ 25 mls/hr IVC .Q24H [facility] Rx#: [id number] Oral 120 / 120 120 / 120 Output: Urine 0 / 0 725 / 725 Gastric Drainage 550 / 550 450 / 450 Other: Meal NPO DINNER NPO BREAKFAST Weight 114.668 kg Blood Glucose* 213 208 Patient Weight 02/08/18 23:59 Weight 114.668 kg - General physical appearance well developed, well nourished, no distress - Eyes normal ocular movement - ENT normal mucosa, Other (presence of NG tube) - Neck Neck exam: no lymphadectomy - Respiratory normal expansion, normal respiratory effort, clear to auscultation - Cardiovascular Cardiovascular exam: Present: RRR, no murmurs/rubs/gallops - Abdomen Abdomen: Present: bowel sounds present, soft, non tender - Incision Incision: Present: clean and dry, intact. Absent: red, purulent - Neurologic normal coordination, normal sensation - Musculoskeletal normal posture - Psychiatric speech is normal, memory intact - Labs 02/08/18 04:00 02/08/18 04:00 Diabetes panel 02/08/18 Range/Units 04:00 Sodium 144 (136-145) mEq/L Potassium 3.5 (3.5-5.1) mEq/L Chloride 115 H (98-107) mEq/L Carbon Dioxide 24 (23-29) mEq/L BUN 20 (8-23) mg/dL Creatinine 1.17 (0.70-1.30) mg/dL Glucose 214 H (70-105) mg/dL Calcium 7.6 L (8.6-10.3) mg/dL Calcium panel 02/08/18 Range/Units 04:00 Calcium 7.6 L (8.6-10.3) mg/dL Phosphorus 2.4 L (2.7-4.5) mg/dL Pituitary panel 02/08/18 Range/Units 04:00 Sodium 144 (136-145) mEq/L Potassium 3.5 (3.5-5.1) mEq/L Chloride 115 H (98-107) mEq/L Carbon Dioxide 24 (23-29) mEq/L BUN 20 (8-23) mg/dL Creatinine 1.17 (0.70-1.30) mg/dL Glucose 214 H (70-105) mg/dL Calcium 7.6 L (8.6-10.3) mg/dL Adrenal panel 02/08/18 Range/Units 04:00 Sodium 144 (136-145) mEq/L Potassium 3.5 (3.5-5.1) mEq/L Chloride 115 H (98-107) mEq/L Carbon Dioxide 24 (23-29) mEq/L BUN 20 (8-23) mg/dL Creatinine 1.17 (0.70-1.30) mg/dL Glucose 214 H (70-105) mg/dL Calcium 7.6 L (8.6-10.3) mg/dL - VTE Documentation of Mechanical Device: Intermittent pneumatic compression device Consult Discharge Plan - Plan Referrals: Lorene Gonzales MD [Partnered Physician] - 02/18/18 11:05 am <Lorene Gonzales - Last Filed: 02/08/18 13:11> Date of Encounter: 02/08/18 - Assessment and Plan (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 pathology pending (2) Metastatic colon cancer to liver Current Visit: Yes Status: Chronic will receive chemotherapy in future (3) Retroperitoneal mass Current Visit: Yes Status: Acute (4) S/P colectomy Current Visit: Yes Status: Acute s/p open right colectomy good bowel sounds today awaiting return gi function started reglan yesterday dulcolax suppository x 1 today ok ice popcicles continue NGT liws gi/dvt prophylaxis ambulate (5) Anemia of chronic disease Current Visit: Yes Status: Acute (6) CKD (chronic kidney disease), stage III Current Visit: Yes Status: Acute (7) DVT prophylaxis Current Visit: Yes Status: Acute (8) Protein-calorie malnutrition, moderate Current Visit: Yes Status: Chronic Subjective Narrative: no complaints, feels gas "rumbling in belly", no flatus or bm no nausea or emesis pain well controlled urinating without incident Objective Vital Signs - Last 8 Hours Temp Pulse Resp BP Pulse Ox 02/08/18 11:55 16 93 02/08/18 11:00 98.9 F 73 16 160/73 93 02/08/18 08:07 18 93 02/08/18 06:43 98.9 F 86 16 134/67 94 Intake and Output 02/07/18 02/08/18 02/08/18 23:59 07:59 15:59 Intake Total 120 / 120 120 / 120 1000 / 1000 Output Total 550 / 550 1175 / 1175 150 / 150 Balance -430 / -430 -1055 / -1055 850 / 850 Intake: IV Fluids 1000 / 1000 0.9 % Sodium Chloride 1,000 ML 1000 / 1000 @ 25 mls/hr IVC .Q24H [facility] Rx#: [id number] Oral 120 / 120 120 / 120 Output: Urine 0 / 0 725 / 725 150 / 150 Gastric Drainage 550 / 550 450 / 450 Other: Meal NPO DINNER NPO BREAKFAST Weight 114.668 kg Blood Glucose* 213 208 227 Patient Weight 02/08/18 23:59 Weight 114.668 kg - General physical appearance well developed, well nourished, no distress - Eyes PERRL, normal ocular movement - ENT normal mucosa, normocephalic - Neck Neck exam: trachea midline - Respiratory normal expansion, clear to auscultation - Cardiovascular Cardiovascular exam: Present: RRR - Abdomen Abdomen: Present: bowel sounds present, soft, tender (minimal postop tenderness) . Absent: guarding, rebound - Incision Incision: Present: clean and dry, intact - Integumentary no rash, no growths - Neurologic normal coordination - Musculoskeletal normal posture - Psychiatric oriented to time, memory intact - Labs 02/08/18 11:00 02/08/18 04:00 Diabetes panel 02/08/18 Range/Units 04:00 Sodium 144 (136-145) mEq/L Potassium 3.5 (3.5-5.1) mEq/L Chloride 115 H (98-107) mEq/L Carbon Dioxide 24 (23-29) mEq/L BUN 20 (8-23) mg/dL Creatinine 1.17 (0.70-1.30) mg/dL Glucose 214 H (70-105) mg/dL Calcium 7.6 L (8.6-10.3) mg/dL Calcium panel 02/08/18 Range/Units 04:00 Calcium 7.6 L (8.6-10.3) mg/dL Phosphorus 2.4 L (2.7-4.5) mg/dL Pituitary panel 02/08/18 Range/Units 04:00 Sodium 144 (136-145) mEq/L Potassium 3.5 (3.5-5.1) mEq/L Chloride 115 H (98-107) mEq/L Carbon Dioxide 24 (23-29) mEq/L BUN 20 (8-23) mg/dL Creatinine 1.17 (0.70-1.30) mg/dL Glucose 214 H (70-105) mg/dL Calcium 7.6 L (8.6-10.3) mg/dL Adrenal panel 02/08/18 Range/Units 04:00 Sodium 144 (136-145) mEq/L Potassium 3.5 (3.5-5.1) mEq/L Chloride 115 H (98-107) mEq/L Carbon Dioxide 24 (23-29) mEq/L BUN 20 (8-23) mg/dL Creatinine 1.17 (0.70-1.30) mg/dL Glucose 214 H (70-105) mg/dL Calcium 7.6 L (8.6-10.3) mg/dL - Attending Attestation I examined this patient and my medical decision-making was reviewed with the Resident Physician. I agree with the documented findings, disposition and treatment plan as described except to the extent set forth below.
[2018-02-08] MEDS: OXYCODONE Oral CONC 10 MG/0.5 ML ORAL.SYG SL PRN (11:23)
[2018-02-08 11:27] LABS: Hematocrit 24.9 % (37.5-50.1); Hemoglobin 7.9 g/dL (12.9-16.9)
[2018-02-08] MEDS ORDERED: Clinimix E 5%-15% SOLUTION 2,000 ML with MVI, adult with vitamin K 10 ML IVC SCH (17:00)
[2018-02-09] MEDS: Insulin LISPRO 300 UNITS/3 ML VIAL SQ SCH ×9 (00:12→21:24)
[2018-02-09] MEDS: Metoclopramide 10 MG/2 ML VIAL IVP SCH ×6 (00:12→23:32)
[2018-02-09] MEDS: OXYCODONE Oral CONC 10 MG/0.5 ML ORAL.SYG SL PRN ×3 (00:17→21:23)
[2018-02-09] MEDS: Ipratropium/Albuterol Neb 3 ML IH SCH ×6 (03:20→23:59)
[2018-02-09 04:14] LABS: Basophils % 0.2 %; Eosinophils # 0.3 K/mcL (0.0-0.6); Eosinophils % 2.9 %; Hematocrit 25.1 % (37.5-50.1); Hemoglobin 7.8 g/dL (12.9-16.9); Immature Granulocytes % 0.9 % (0-4); Lymphocytes # 0.6 K/mcL (0.6-4.6); Lymphocytes % 7.1 %; Mean Corpuscular HGB Conc 31.1 g/dL (31.6-35.5); Mean Corpuscular Hemoglobin 25.7 pg (28.0-33.3); Mean Corpuscular Volume 82.6 fL (83.0-100.0); Mean Platelet Volume 10.4 fL (9.4-12.4); Monocytes % 11.3 %; Platelet Count 196 K/mcL (140-400); Red Blood Count 3.04 M/mcL (4.19-5.50); Red Cell Distribution Width 16.1 % (11.5-14.5); Segmented Neutrophils % 77.6 %
[2018-02-09 04:15] LABS: Neutrophils # 6.7 K/mcL (1.6-8.9)
[2018-02-09 04:38] LABS: BUN/Creatinine Ratio 18 (6-26); Blood Urea Nitrogen 21 mg/dL (8-23); Calcium 7.2 mg/dL (8.6-10.3); Carbon Dioxide 22 mEq/L (23-29); Chloride 117 mEq/L (98-107); Glucose 198 mg/dL (70-105); Magnesium 1.7 mg/dL (1.6-2.6); Osmolality,Calculated 305 (280-300); Phosphorous 1.3 mg/dL (2.7-4.5); Potassium 3.4 mEq/L (3.5-5.1); Sodium 143 mEq/L (136-145); eGFR For African Americans > 60 (> 60); eGFR For Non-African Americans > 60 (> 60)
[2018-02-09] MEDS: *HR* Heparin 5,000 UNIT/ML VIAL SQ SCH ×2 (05:21→17:19)
--- NOTE | 2018-02-09 07:20 | General Surgery Progress Note ---
<ItzelelizabethCarson - Last Filed: 02/09/18 11:37> Date of Encounter: 02/09/18 Time of Encounter: 09:00 - Assessment and Plan (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 Pathology pending POD #6 s/p Open R cholectomy Pt continuing to progress well. Pt passing flatus and having BM Plan: advancing diet to clear liquids adding clear ensure supplement continue TPN d/c Maintenance IVF start Colace 100mg BID continue GI and DVT PPx IS Q1H while awake serial abd exams monitor daily labs continue strict Is &Os (2) Metastatic colon cancer to liver Current Visit: Yes Status: Chronic Pt follows with Oncology. Patient will follow up as an out patient for plans for chemotherapy (3) Retroperitoneal mass Current Visit: Yes Status: Acute Biopsy from Colonoscopy path consistent with metastatic carcinoma originating in the GI tract. Path from Surgery still pending. (4) S/P colectomy Current Visit: Yes Status: Acute POD #6 s/p Open R colectomy with Dr. Gonzales Pt with good bowel sounds, Pt having diarrhea. Pt pulled out NG tube yesterday, GI X ray showed "Transit of enteric contrast into the colon since prior imaging. No current evidence of obstruction." Advanced diet to Clear Liquid Continue GI ppx encourage ambulation and OOB (5) Anemia of chronic disease Current Visit: Yes Status: Chronic Stable Hgb 7.8 management per primary team (6) CKD (chronic kidney disease), stage III Current Visit: Yes Status: Chronic Cr. 1.15 appears to be at or better than baseline continue management per primary team (7) Protein-calorie malnutrition, moderate Current Visit: Yes Status: Chronic (8) DVT prophylaxis Current Visit: Yes Status: Acute continue Heparin SQ Q12H Subjective Patient reports: no new complaints, feels better, voiding w/o difficulty, flatus , no bowel movement, afebrile Narrative: 77 M POD #6 s/p open right colectomy. Patient examined by me at bedside. Patient ripped out NG tube overnight. Abd xray showed good mobilization of contrast material so NG tube to remain out. Diet advanced. Patient's pain well controlled. Patient reports firey liquid stools. Patient passing flatus. Patient denies N, V, SOB, CP. Objective Vital Signs - Last 8 Hours Temp Pulse Resp BP Pulse Ox 02/09/18 04:00 99.1 F 98 14 116/71 95 02/09/18 00:17 104 16 147/74 94 02/08/18 23:32 18 96 Intake and Output 02/08/18 02/08/18 02/09/18 15:59 23:59 07:59 Intake Total 1000 / 1000 120 / 120 240 / 240 Output Total 600 / 600 750 / 750 Balance 400 / 400 120 / 120 -510 / -510 Intake: IV Fluids 1000 / 1000 0.9 % Sodium Chloride 1,000 ML 1000 / 1000 @ 25 mls/hr IVC .Q24H [facility] Rx#: [id number] Oral 0 / 0 120 / 120 240 / 240 Output: Urine 250 / 250 200 / 200 Gastric Drainage 350 / 350 550 / 550 Other: Meal NPO Lunch Stool Size Small Small Small Stool Consistency liquid soft liquid Stool Color Brown Brown Brown # Bowel Movements 1 1 Weight 114.487 kg Blood Glucose* 213 238 206 Patient Weight 02/09/18 23:59 Weight 114.487 kg - General physical appearance well developed, well nourished, no distress - ENT normal mucosa - Neck Neck exam: trachea midline - Respiratory normal expansion, normal respiratory effort, clear to auscultation - Cardiovascular Cardiovascular exam: Present: RRR, no murmurs/rubs/gallops - Abdomen Abdomen: Present: bowel sounds present, soft, non tender - Incision Incision: Present: clean and dry, intact - Integumentary no rash, no abnormal pigmentation - Neurologic normal coordination, normal sensation - Psychiatric oriented to time, oriented to person, oriented to place, speech is normal, memory intact - Labs 02/09/18 04:00 02/09/18 04:00 Diabetes panel 02/09/18 Range/Units 04:00 Sodium 143 (136-145) mEq/L Potassium 3.4 L (3.5-5.1) mEq/L Chloride 117 H (98-107) mEq/L Carbon Dioxide 22 L (23-29) mEq/L BUN 21 (8-23) mg/dL Creatinine 1.15 (0.70-1.30) mg/dL Glucose 198 H (70-105) mg/dL Calcium 7.2 L (8.6-10.3) mg/dL Calcium panel 02/09/18 Range/Units 04:00 Calcium 7.2 L (8.6-10.3) mg/dL Phosphorus 1.3 L (2.7-4.5) mg/dL Pituitary panel 02/09/18 Range/Units 04:00 Sodium 143 (136-145) mEq/L Potassium 3.4 L (3.5-5.1) mEq/L Chloride 117 H (98-107) mEq/L Carbon Dioxide 22 L (23-29) mEq/L BUN 21 (8-23) mg/dL Creatinine 1.15 (0.70-1.30) mg/dL Glucose 198 H (70-105) mg/dL Calcium 7.2 L (8.6-10.3) mg/dL Adrenal panel 02/09/18 Range/Units 04:00 Sodium 143 (136-145) mEq/L Potassium 3.4 L (3.5-5.1) mEq/L Chloride 117 H (98-107) mEq/L Carbon Dioxide 22 L (23-29) mEq/L BUN 21 (8-23) mg/dL Creatinine 1.15 (0.70-1.30) mg/dL Glucose 198 H (70-105) mg/dL Calcium 7.2 L (8.6-10.3) mg/dL - Imaging Abdominal x-ray: report reviewed, image reviewed - VTE Documentation of Mechanical Device: Intermittent pneumatic compression device Consult Discharge Plan - Plan Referrals: Lorene Gonzales MD [Partnered Physician] - 02/18/18 11:05 am <Lorene Gonzales - Last Filed: 02/09/18 14:06> Date of Encounter: 02/09/18 - Assessment and Plan (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 pathology pending (2) Metastatic colon cancer to liver Current Visit: Yes Status: Chronic (3) Retroperitoneal mass Current Visit: Yes Status: Acute (4) S/P colectomy Current Visit: Yes Status: Acute patient pulled ngt last night is passing flatus and having liquid bm's ok to start clears will change to percocet tomorrow OOB/ ambulate gi/dvt prophylaxis (5) Anemia of chronic disease Current Visit: Yes Status: Chronic (6) CKD (chronic kidney disease), stage III Current Visit: Yes Status: Chronic (7) DVT prophylaxis Current Visit: Yes Status: Acute (8) Protein-calorie malnutrition, moderate Current Visit: Yes Status: Chronic Subjective Patient reports: no new complaints, feels better, voiding w/o difficulty, flatus , bowel movement, afebrile Objective Vital Signs - Last 8 Hours Temp Pulse Resp BP Pulse Ox 02/09/18 10:40 98.6 F 88 19 150/72 97 02/09/18 07:33 19 96 02/09/18 07:21 98.2 F 94 15 124/68 95 Intake and Output 02/08/18 02/09/18 02/09/18 23:59 07:59 15:59 Intake Total 120 / 120 490 / 490 780 / 780 Output Total 750 / 750 Balance 120 / 120 -260 / -260 780 / 780 Intake: IV Fluids 250 / 250 600 / 600 0.9 % Sodium Chloride 1,000 ML 600 / 600 @ 25 mls/hr IVC .Q24H [facility] Rx#: [id number] Intralipid 20% 250 ML @ 21 mls/ 250 / 250 hr IVPB DAILY@1700 [facility] Rx#: [id number] Oral 120 / 120 240 / 240 180 / 180 Output: Urine 200 / 200 Gastric Drainage 550 / 550 Other: Meal Lunch Stool Size Small Small Small Stool Consistency soft liquid soft Stool Color Brown Brown # Voids 1 # Bowel Movements 1 1 1 Weight 114.487 kg Blood Glucose* 238 202 252 Patient Weight 02/09/18 23:59 Weight 114.487 kg - General physical appearance well developed, well nourished, no distress - Eyes normal ocular movement - ENT normal mucosa, normocephalic - Neck Neck exam: trachea midline - Respiratory normal expansion, normal respiratory effort - Cardiovascular Cardiovascular exam: Present: RRR - Abdomen Abdomen: Present: bowel sounds present, soft, tender (appropriate minimal post op tenderness). Absent: guarding, rebound - Incision Incision: Present: clean and dry, intact - Integumentary no rash, no abnormal pigmentation - Neurologic normal coordination, normal sensation - Musculoskeletal normal posture - Psychiatric oriented to time, oriented to person, memory intact - Additional Exam Vital Signs Temp Pulse Resp BP Pulse Ox 02/09/18 10:40 98.6 F 88 19 150/72 97 02/09/18 07:33 19 96 02/09/18 07:21 98.2 F 94 15 124/68 95 02/09/18 04:00 99.1 F 98 14 116/71 95 02/09/18 00:17 104 16 147/74 94 02/08/18 23:32 18 96 02/08/18 21:30 96 02/08/18 21:28 99.1 F 102 14 144/74 96 02/08/18 19:45 18 96 02/08/18 15:49 18 97 02/08/18 14:43 98.7 F 90 16 147/78 94 Intake and Output 02/08/18 02/09/18 02/09/18 23:59 07:59 15:59 Intake Total 120 / 120 490 / 490 780 / 780 Output Total 750 / 750 Balance 120 / 120 -260 / -260 780 / 780 Intake: IV Fluids 250 / 250 600 / 600 0.9 % Sodium Chloride 1,000 ML 600 / 600 @ 25 mls/hr IVC .Q24H [facility] Rx#: [id number] Intralipid 20% 250 ML @ 21 mls/ 250 / 250 hr IVPB DAILY@1700 [facility] Rx#: [id number] Oral 120 / 120 240 / 240 180 / 180 Output: Urine 200 / 200 Gastric Drainage 550 / 550 Other: Meal Lunch Stool Size Small Small Small Stool Consistency soft liquid soft Stool Color Brown Brown # Voids 1 # Bowel Movements 1 1 1 Weight 114.487 kg Blood Glucose* 238 202 252 Patient Weight 02/09/18 23:59 Weight 114.487 kg Short CBC 02/09/18 Range/Units 04:00 WBC 8.6 D (4.3-11.1) K/mcL Hgb 7.8 L (12.9-16.9) g/dL Hct 25.1 L (37.5-50.1) % Plt Count 196 (140-400) K/mcL Neutrophils # 6.7 (1.6-8.9) K/mcL BMP 02/09/18 Range/Units 04:00 Sodium 143 (136-145) mEq/L Potassium 3.4 L (3.5-5.1) mEq/L Chloride 117 H (98-107) mEq/L Carbon Dioxide 22 L (23-29) mEq/L BUN 21 (8-23) mg/dL Creatinine 1.15 (0.70-1.30) mg/dL Glucose 198 H (70-105) mg/dL Calcium 7.2 L (8.6-10.3) mg/dL - Labs 04/16/18 04:00 02/09/18 04:00 Diabetes panel 02/09/18 Range/Units 04:00 Sodium 143 (136-145) mEq/L Potassium 3.4 L (3.5-5.1) mEq/L Chloride 117 H (98-107) mEq/L Carbon Dioxide 22 L (23-29) mEq/L BUN 21 (8-23) mg/dL Creatinine 1.15 (0.70-1.30) mg/dL Glucose 198 H (70-105) mg/dL Calcium 7.2 L (8.6-10.3) mg/dL Calcium panel 02/09/18 Range/Units 04:00 Calcium 7.2 L (8.6-10.3) mg/dL Phosphorus 1.3 L (2.7-4.5) mg/dL Pituitary panel 02/09/18 Range/Units 04:00 Sodium 143 (136-145) mEq/L Potassium 3.4 L (3.5-5.1) mEq/L Chloride 117 H (98-107) mEq/L Carbon Dioxide 22 L (23-29) mEq/L BUN 21 (8-23) mg/dL Creatinine 1.15 (0.70-1.30) mg/dL Glucose 198 H (70-105) mg/dL Calcium 7.2 L (8.6-10.3) mg/dL Adrenal panel 02/09/18 Range/Units 04:00 Sodium 143 (136-145) mEq/L Potassium 3.4 L (3.5-5.1) mEq/L Chloride 117 H (98-107) mEq/L Carbon Dioxide 22 L (23-29) mEq/L BUN 21 (8-23) mg/dL Creatinine 1.15 (0.70-1.30) mg/dL Glucose 198 H (70-105) mg/dL Calcium 7.2 L (8.6-10.3) mg/dL - Attending Attestation I examined this patient and my medical decision-making was reviewed with the Resident Physician. I agree with the documented findings, disposition and treatment plan as described except to the extent set forth below.
[2018-02-09] MEDS ORDERED: Potassium Chloride 20 MEQ, Lidocaine 1% 2 ML in D5% in Water 250 ML IVPB ONE (08:30)
--- NOTE | 2018-02-09 09:01 | Internal Med Progress Note ---
<Tram Gilbert - Last Filed: 02/09/18 10:20> Date of Encounter: 02/09/18 Time of Encounter: 08:45 - Assessment and plan (1) SBO (small bowel obstruction) Current Visit: Yes Status: Acute Assessment and plan: Secondary to colonic/cecal mass -POD #6 exploratory laparotomy with right colectomy High-grade small bowel obstruction demonstrated by imaging. Secondary to adenocarcinoma of cecum Abd CT demonstrating large cecal mass at ileocecal valve compatible with carcinoma. High-grade small bowel show action. Liver lesions compatible with metastatic disease. 9 mm right lower lobe pulmonary nodules that may be metastases. Abdominal x-ray 02/09/2018 demonstrated transit of enteric contrast into colon since prior imaging. No evidence of his obstruction. Patient is passing gas and having multiple bowel movement. -Patient reports only mild pain, still has fentanyl patch from surgery. Will discontinue final patch and continue with oral oxycodone PRN pain. 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 BP controlled holding home amlodipine -hydralazine IV PRN Qualifiers: Hypertension type: essential hypertension Qualified Code(s): I10 - Essential (primary) hypertension (4) Diabetes Current Visit: Yes Status: Chronic Assessment and plan: History of diabetes well-controlled with Januvia. Continue Insulin sliding scale will continue accu checks Qualifiers: Diabetes mellitus type: type 2 Diabetes mellitus correction insulin use: without correction use Diabetes mellitus complication status: with kidney complications Diabetes mellitus complication detail: with chronic kidney disease Chronic kidney disease stage: stage 3 (moderate) Qualified Code(s): E11.22 - Type 2 diabetes mellitus with diabetic chronic kidney disease; N18.3 - Chronic kidney disease, stage 3 (moderate); N18.3 - Chronic kidney disease, stage 3 (moderate) (5) Anemia Current Visit: Yes Status: Chronic Assessment and plan: Anemia, likely due to colorectal cancer no obvious active bleeding has had one unit PRBC -will continue to monitor Qualifiers: Anemia type: iron deficiency Iron deficiency anemia type: chronic blood loss Qualified Code(s): D50.0 - Iron deficiency anemia secondary to blood loss (chronic) (6) Acute kidney injury Current Visit: Yes Status: Acute Assessment and plan: Resolved LIZ on CKD creatinine 1.15 -avoid nephrotoxic agents, IVF, monitor Scr (7) Metastatic colon cancer to liver Current Visit: Yes Status: Chronic Assessment and plan: Liver metastases demonstrate by abdominal CT Abd CT demonstrating large cecal mass at ileocecal valve compatible with carcinoma. High-grade small bowel show action. Liver lesions compatible with metastatic disease. 9 mm right lower lobe pulmonary nodules that may be metastases. Follow-up with oncology after discharge (8) CKD (chronic kidney disease), stage III Current Visit: Yes Status: Acute Assessment and plan: see plan above (9) Cholelithiasis Current Visit: Yes Status: Acute Assessment and plan: Cholelithiasis noted on abdominal CT. Spoke with surgery who stated that this was noted on previous images and does not think that intervention is needed. Qualifiers: Qualified Code(s): K80.51 - Calculus of bile duct without cholangitis or cholecystitis with obstruction - Time Spent With Patient Total time spent is greater than 50% in coordination of care (as documented) at patient's floor/unit and/or counseling patient: - Subjective Interval history: Patient seen and examined at bedside sitting comfortably. He reports only mild abdominal pain for which is controlled. He denies nausea, vomiting, fever, chills. He is passing gas and having multiple bowel movements. - Constitutional Vitals: Temp Pulse Resp BP Pulse Ox 98.2 F 94 19 124/68 96 02/09/18 07:21 02/09/18 07:21 02/09/18 07:33 02/09/18 07:21 02/09/18 07:33 General appearance: Present: cooperative, A&O X 3, no acute distress, answers questions appropriately Exam: Gen.: Vitals noted. No acute distress. AAOx3 HEENT: oropharynx clear, Normocephalic, atraumatic Neck: Supple. No adenopathy. Cardiac: RRR, no murmur, +S1/S2 Pulmonary: CTA bilaterally, no wheezes, rales or rhonchi, equal chest expansion Abdomen: soft, diffuse mild tender, decreased but present Bowel sounds noted, no guarding MSK: ROM intact, no joint swelling noted Extremities: no BLE edema, nontender calf, no cyanosis or clubbing Neuro: A&Ox3, moves all extremities, no focal deficits Psych: Appropriate mood and behavior Internal Medicine: Result - Labs CBC & Chem 7: 02/09/18 04:00 02/09/18 04:00 Labs: Short CBC 02/08/18 02/09/18 Range/Units 11:00 04:00 WBC 8.6 D (4.3-11.1) K/mcL Hgb 7.9 L 7.8 L (12.9-16.9) g/dL Hct 24.9 L 25.1 L (37.5-50.1) % Plt Count 196 (140-400) K/mcL Neutrophils # 6.7 (1.6-8.9) K/mcL BMP 02/09/18 04:00 Sodium 143 Potassium 3.4 L Chloride 117 H Carbon Dioxide 22 L BUN 21 Creatinine 1.15 Glucose 198 H Calcium 7.2 L - ABG Interpretation ABG results: PT/INR, D-dimer PT 15.4 Seconds (9.4-12.1) H 02/03/18 04:58 - Impressions Impressions Abdomen X-Ray 02/09/18 07:59 IMPRESSION: Transit of enteric contrast into the colon since prior imaging. No current evidence of obstruction. D/ / Justin West MD / Justin West MD Interpreting Provider: Justin West MD - VTE Documentation of Mechanical Device: Intermittent pneumatic compression device Consult Discharge Plan - Plan Referrals: Lorene Gonzales MD [Partnered Physician] - 02/18/18 11:05 am <Ry Flores H - Last Filed: 02/09/18 10:26> Date of Encounter: 02/09/18 - Assessment and plan (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 (2) Hypertension Current Visit: Yes Status: Chronic Qualifiers: Hypertension type: essential hypertension Qualified Code(s): I10 - Essential (primary) hypertension (3) Diabetes Current Visit: Yes Status: Chronic Qualifiers: Diabetes mellitus type: type 2 Diabetes mellitus intermediate teacher insulin use: without correction use Diabetes mellitus complication status: with kidney complications Diabetes mellitus complication detail: with chronic kidney disease Chronic kidney disease stage: stage 3 (moderate) Qualified Code(s): E11.22 - Type 2 diabetes mellitus with diabetic chronic kidney disease; N18.3 - Chronic kidney disease, stage 3 (moderate); N18.3 - Chronic kidney disease, stage 3 (moderate) (4) Anemia Current Visit: Yes Status: Chronic Qualifiers: Anemia type: iron deficiency Iron deficiency anemia type: chronic blood loss Qualified Code(s): D50.0 - Iron deficiency anemia secondary to blood loss (chronic) (5) Acute kidney injury Current Visit: Yes Status: Acute (6) Metastatic colon cancer to liver Current Visit: Yes Status: Chronic (7) SBO (small bowel obstruction) Current Visit: Yes Status: Acute (8) CKD (chronic kidney disease), stage III Current Visit: Yes Status: Acute (9) Cholelithiasis Current Visit: Yes Status: Acute Qualifiers: Qualified Code(s): K80.51 - Calculus of bile duct without cholangitis or cholecystitis with obstruction - Time Spent With Patient Total time spent is greater than 50% in coordination of care (as documented) at patient's floor/unit and/or counseling patient: - Constitutional Vitals: Temp Pulse Resp BP Pulse Ox 98.2 F 94 19 124/68 96 02/09/18 07:21 02/09/18 07:21 02/09/18 07:33 02/09/18 07:21 02/09/18 07:33 Internal Medicine: Result - Labs CBC & Chem 7: 02/09/18 04:00 02/09/18 04:00 Labs: Short CBC 02/08/18 02/09/18 Range/Units 11:00 04:00 WBC 8.6 D (4.3-11.1) K/mcL Hgb 7.9 L 7.8 L (12.9-16.9) g/dL Hct 24.9 L 25.1 L (37.5-50.1) % Plt Count 196 (140-400) K/mcL Neutrophils # 6.7 (1.6-8.9) K/mcL BMP 02/09/18 04:00 Sodium 143 Potassium 3.4 L Chloride 117 H Carbon Dioxide 22 L BUN 21 Creatinine 1.15 Glucose 198 H Calcium 7.2 L - ABG Interpretation ABG results: PT/INR, D-dimer PT 15.4 Seconds (9.4-12.1) H 02/03/18 04:58 - Impressions Impressions Abdomen X-Ray 02/09/18 07:59 IMPRESSION: Transit of enteric contrast into the colon since prior imaging. No current evidence of obstruction. D/ / Justin West MD / Justin West MD Interpreting Provider: Justin West MD - Attending Attestation SBO carcinoma of the cecum NG tube removed consider discontinuing TPN and Fentanyl patch cholelithiasis, consider CYY in the future I examined this patient and my medical decision-making was reviewed with the Resident Physician. I agree with the documented findings, disposition and treatment plan as described except to the extent set forth below.
[2018-02-09] MEDS: Pantoprazole 40 MG VIAL IVP SCH (09:42)
[2018-02-09] MEDS: 0.9 % Sodium Chloride 1,000 ML IVC SCH (10:55)
[2018-02-09] MEDS ORDERED: Clinimix E 5%-15% SOLUTION 2,000 ML with MVI, adult with vitamin K 10 ML IVC SCH (17:00)
[2018-02-09] MEDS ORDERED: *HR* FentaNYL PATCH 25 MCG PATCH TD SCH (17:30)
[2018-02-09] MEDS: Insulin DETEMIR 100 UNIT/ML X5UNITS SQ SCH (21:27)
[2018-02-10] MEDS: Insulin LISPRO 300 UNITS/3 ML VIAL SQ SCH ×6 (00:17→20:46)
[2018-02-10 03:21] LABS: Basophils % 0.2 %; Eosinophils # 0.2 K/mcL (0.0-0.6); Eosinophils % 1.7 %; Hemoglobin 7.6 g/dL (12.9-16.9); Lymphocytes # 0.8 K/mcL (0.6-4.6); Lymphocytes % 7.9 %; Mean Corpuscular HGB Conc 31.7 g/dL (31.6-35.5); Mean Corpuscular Hemoglobin 26.2 pg (28.0-33.3); Mean Corpuscular Volume 82.8 fL (83.0-100.0); Mean Platelet Volume 10.5 fL (9.4-12.4); Monocytes # 1.3 K/mcL (0.0-1.3); Monocytes % 12.3 %; Platelet Count 194 K/mcL (140-400); Red Cell Distribution Width 16.5 % (11.5-14.5); Segmented Neutrophils % 76.9 %
[2018-02-10 03:45] LABS: Calcium 7.6 mg/dL (8.6-10.3); Phosphorous 2.3 mg/dL (2.7-4.5); Potassium 3.8 mEq/L (3.5-5.1)
[2018-02-10] MEDS: Ipratropium/Albuterol Neb 3 ML IH SCH ×5 (04:20→20:02)
[2018-02-10] MEDS: *HR* Heparin 5,000 UNIT/ML VIAL SQ SCH ×2 (04:44→17:15)
[2018-02-10] MEDS: Metoclopramide 10 MG/2 ML VIAL IVP SCH ×3 (04:46→17:15)
[2018-02-10] MEDS: OXYCODONE Oral CONC 10 MG/0.5 ML ORAL.SYG SL PRN (04:49)
--- NOTE | 2018-02-10 09:26 | Internal Med Progress Note ---
<Tram Gilbert - Last Filed: 02/10/18 09:33> Date of Encounter: 02/10/18 Time of Encounter: 09:00 - Assessment and plan (1) SBO (small bowel obstruction) Current Visit: Yes Status: Acute Assessment and plan: Secondary to colonic/cecal mass -POD #7 exploratory laparotomy with right colectomy High-grade small bowel obstruction demonstrated by imaging. Secondary to adenocarcinoma of cecum Abd CT demonstrating large cecal mass at ileocecal valve compatible with carcinoma. High-grade small bowel show action. Liver lesions compatible with metastatic disease. 9 mm right lower lobe pulmonary nodules that may be metastases. Abdominal x-ray 02/09/2018 demonstrated transit of enteric contrast into colon since prior imaging. No evidence of his obstruction. Patient is passing gas and having multiple bowel movement. -Surgery following -Patient reports only mild pain, still has fentanyl patch from surgery.oral oxycodone PRN pain. 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 BP controlled holding home amlodipine -hydralazine IV PRN Qualifiers: Hypertension type: essential hypertension Qualified Code(s): I10 - Essential (primary) hypertension (4) Diabetes Current Visit: Yes Status: Chronic Assessment and plan: History of diabetes well-controlled with Januvia. Continue Insulin sliding scale will continue accu checks Qualifiers: Diabetes mellitus type: type 2 Diabetes mellitus terminal manager insulin use: without snf use Diabetes mellitus complication status: with kidney complications Diabetes mellitus complication detail: with chronic kidney disease Chronic kidney disease stage: stage 3 (moderate) Qualified Code(s): E11.22 - Type 2 diabetes mellitus with diabetic chronic kidney disease; N18.3 - Chronic kidney disease, stage 3 (moderate); N18.3 - Chronic kidney disease, stage 3 (moderate) (5) Anemia Current Visit: Yes Status: Chronic Assessment and plan: Anemia, likely due to colorectal cancer no obvious active bleeding has had one unit PRBC -will continue to monitor Qualifiers: Anemia type: iron deficiency Iron deficiency anemia type: chronic blood loss Qualified Code(s): D50.0 - Iron deficiency anemia secondary to blood loss (chronic) (6) Acute kidney injury Current Visit: Yes Status: Acute Assessment and plan: Resolved LIZ on CKD creatinine 1.47 increased again May be due to decreased oral intake of fluids I&O: -avoid nephrotoxic agents, IVF, monitor Scr (7) Metastatic colon cancer to liver Current Visit: Yes Status: Chronic Assessment and plan: Liver metastases demonstrate by abdominal CT Abd CT demonstrating large cecal mass at ileocecal valve compatible with carcinoma. High-grade small bowel show action. Liver lesions compatible with metastatic disease. 9 mm right lower lobe pulmonary nodules that may be metastases. Follow-up with oncology after discharge (8) CKD (chronic kidney disease), stage III Current Visit: Yes Status: Chronic Assessment and plan: see plan above (9) DVT prophylaxis Current Visit: Yes Status: Acute Assessment and plan: Heparin SQ (10) Cholelithiasis Current Visit: Yes Status: Acute Assessment and plan: Cholelithiasis noted on abdominal CT. Spoke with surgery who stated that this was noted on previous images and does not think that intervention is needed. Qualifiers: Qualified Code(s): K80.51 - Calculus of bile duct without cholangitis or cholecystitis with obstruction - Time Spent With Patient Total time spent is greater than 50% in coordination of care (as documented) at patient's floor/unit and/or counseling patient: - Subjective Interval history: Patient seen and examined at bedside sitting comfortably. He reports only mild abdominal pain for which is controlled. He is tolerating a clear liquid diet. He denies nausea, vomiting, fever, chills. He is passing gas and having multiple bowel movements that are becoming more formed. - Constitutional Vitals: Temp Pulse Resp BP Pulse Ox 98.6 F 89 17 132/69 94 02/10/18 06:41 02/10/18 06:41 02/10/18 06:41 02/10/18 06:41 02/10/18 06:41 General appearance: Present: cooperative, A&O X 3, no acute distress, answers questions appropriately Exam: Gen.: Vitals noted. No acute distress. AAOx3 HEENT: PERRL/EOMI, oropharynx clear, Normocephalic, atraumatic Neck: Supple. No adenopathy. Cardiac: RRR, no murmur, +S1/S2 Pulmonary: CTA bilaterally, no wheezes, rales or rhonchi, equal chest expansion Abdomen: soft, diffuse tender, minimal Bowel sounds noted, no guarding, distended MSK: ROM intact, no joint swelling noted Extremities: no BLE edema, nontender calf, no cyanosis or clubbing Neuro: A&Ox3, moves all extremities, no focal deficits Psych: Appropriate mood and behavior Internal Medicine: Result - Labs CBC & Chem 7: 02/10/18 03:05 02/10/18 03:05 Labs: Short CBC 02/10/18 Range/Units 03:05 WBC 10.4 (4.3-11.1) K/mcL Hgb 7.6 L (12.9-16.9) g/dL Hct 24.0 L (37.5-50.1) % Plt Count 194 (140-400) K/mcL Neutrophils # 8.0 (1.6-8.9) K/mcL BMP 02/10/18 03:05 Sodium 142 Potassium 3.8 Chloride 114 H Carbon Dioxide 21 L BUN 27 H Creatinine 1.47 H Glucose 190 H Calcium 7.6 L - ABG Interpretation ABG results: PT/INR, D-dimer PT 15.4 Seconds (9.4-12.1) H 02/03/18 04:58 - VTE Documentation of Mechanical Device: Intermittent pneumatic compression device Consult Discharge Plan - Plan Referrals: Lorene Gonzales MD [Partnered Physician] - 02/18/18 11:05 am <Shruthi Abraham - Last Filed: 02/10/18 17:05> Date of Encounter: 02/10/18 - Assessment and plan (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 (2) Hypertension Current Visit: Yes Status: Chronic Qualifiers: Hypertension type: essential hypertension Qualified Code(s): I10 - Essential (primary) hypertension (3) Diabetes Current Visit: Yes Status: Chronic Qualifiers: Diabetes mellitus type: type 2 Diabetes mellitus terminal manager insulin use: without snf use Diabetes mellitus complication status: with kidney complications Diabetes mellitus complication detail: with chronic kidney disease Chronic kidney disease stage: stage 3 (moderate) Qualified Code(s): E11.22 - Type 2 diabetes mellitus with diabetic chronic kidney disease; N18.3 - Chronic kidney disease, stage 3 (moderate); N18.3 - Chronic kidney disease, stage 3 (moderate) (4) DVT prophylaxis Current Visit: Yes Status: Acute (5) Anemia Current Visit: Yes Status: Chronic Qualifiers: Anemia type: iron deficiency Iron deficiency anemia type: chronic blood loss Qualified Code(s): D50.0 - Iron deficiency anemia secondary to blood loss (chronic) (6) Acute kidney injury Current Visit: Yes Status: Acute (7) Metastatic colon cancer to liver Current Visit: Yes Status: Chronic (8) SBO (small bowel obstruction) Current Visit: Yes Status: Acute (9) CKD (chronic kidney disease), stage III Current Visit: Yes Status: Chronic (10) Cholelithiasis Current Visit: Yes Status: Acute Qualifiers: Qualified Code(s): K80.51 - Calculus of bile duct without cholangitis or cholecystitis with obstruction - Time Spent With Patient Total time spent is greater than 50% in coordination of care (as documented) at patient's floor/unit and/or counseling patient: - Constitutional Vitals: Temp Pulse Resp BP Pulse Ox 99.5 F 88 17 130/69 96 02/10/18 15:16 02/10/18 15:16 02/10/18 15:16 02/10/18 15:16 02/10/18 15:16 Internal Medicine: Result - Labs CBC & Chem 7: 02/10/18 03:05 02/10/18 03:05 Labs: Short CBC 02/10/18 Range/Units 03:05 WBC 10.4 (4.3-11.1) K/mcL Hgb 7.6 L (12.9-16.9) g/dL Hct 24.0 L (37.5-50.1) % Plt Count 194 (140-400) K/mcL Neutrophils # 8.0 (1.6-8.9) K/mcL BMP 02/10/18 03:05 Sodium 142 Potassium 3.8 Chloride 114 H Carbon Dioxide 21 L BUN 27 H Creatinine 1.47 H Glucose 190 H Calcium 7.6 L - ABG Interpretation ABG results: PT/INR, D-dimer PT 15.4 Seconds (9.4-12.1) H 02/03/18 04:58 - Attending Attestation I examined this patient and my medical decision-making was reviewed with the Resident Physician Dr. Gilbert. I agree with the documented findings, disposition and treatment plan as described except to the extent set forth below. Mr. Mcfarland is a 77 y/o M admitted here for SBO associated with cecal mass. Pt did go for exp laparotomy. Pt states he is feeling little better today. Passing gas ok. tolerating cleat liquid diet ok. Gen: A, A< O x 3 Chest: Diminished BS b/l,no crackles Abd: Soft, Nt, clean incision a/p 1. Acute SBP s/p Exp Laparotomy POD # 7 cont TPN since pt still on on clear liquid diet only 2. Cecal cancer Chemo port placement in AM need out pt f/u with Heme Onc
[2018-02-10] MEDS: Pantoprazole 40 MG VIAL IVP SCH (09:39)
[2018-02-10] MEDS ORDERED: Sodium Phosphate 30 MMOL in D5% in Water 100 ML IVPB ONE (09:52)
--- NOTE | 2018-02-10 11:34 | General Surgery Progress Note ---
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 Pt passing flatus and having BM Plan: continue clear liquid diet continue clear ensure supplement continue TPN for 1 more day continue Colace 100mg BID continue GI and DVT PPx continue IS Q1H while awake serial abd exams monitor daily labs continue strict Is &Os (2) Metastatic colon cancer to liver Current Visit: Yes Status: Chronic Pt follows with Oncology. Patient will follow up as an out patient for plans for chemotherapy per their notes (3) Retroperitoneal mass Current Visit: Yes Status: Acute Biopsy from Colonoscopy path consistent with metastatic carcinoma originating in the GI tract. Path from Surgery still pending. (4) S/P colectomy Current Visit: Yes Status: Acute POD #7 s/p Open R colectomy with Dr. Gonzales Pt with good bowel sounds, Pt having more formed bowel movements now. GI X ray 02/09 showed "Transit of enteric contrast into the colon since prior imaging. No current evidence of obstruction." continue clear liquid diet Continue GI ppx encourage ambulation and OOB (5) Anemia of chronic disease Current Visit: Yes Status: Chronic Stable Hgb 7.6 management per primary team (6) CKD (chronic kidney disease), stage III Current Visit: Yes Status: Chronic Cr. bumped to 1.47 today from 1.15 yesterday. Unclear baseline cr. Patient reports having some difficulty urinating. He had a temp of 101.5 last night. Will check a Urine Cx continue to monitor continue management per primary team (7) Protein-calorie malnutrition, moderate Current Visit: Yes Status: Chronic Nutrition is on board. continue ensure continue TPN appreciate any recommendations from nutrition. (8) DVT prophylaxis Current Visit: Yes Status: Acute continue Heparin SQ Q12H Subjective Patient reports: no new complaints, flatus, bowel movement, afebrile Narrative: Patient seen and examined by me. Patient reports feeling well. He reports pain is controlled. Patient repeort bowel movements are becoming more formed. He reports having some difficulty urinating and not being able to tell if pressure down there means he needs to urinate or pass a bowel movement. Pt dneies N, V, F , Chills, CP, SOB. Pt did have a temp of 101.5 last night. Objective Vital Signs - Last 8 Hours Temp Pulse Resp BP Pulse Ox 02/10/18 11:06 17 95 02/10/18 10:59 98.1 F 88 17 127/62 95 02/10/18 06:41 98.6 F 89 17 132/69 94 02/10/18 04:26 97.9 F 60 15 123/77 99 Intake and Output 02/09/18 02/10/18 02/10/18 23:59 07:59 15:59 Intake Total 2167 / 2167 450 / 450 640 / 640 Output Total 50 / 50 0 / 0 Balance 2116 / 2116 450 / 450 640 / 640 Intake: IV Fluids 2016 250 / 250 Clinimix E 5%-15% SOLUTION 2, 1757 / 1757 000 ML @ 83.3 mls/hr IVC .Q24H [facility] with M.v.i. Adult 10 ml Rx# :[id number] Intralipid 20% 250 ML @ 21 mls/ 250 / 250 hr IVPB DAILY@1700 [facility] Rx#: [id number] Sodium Phosphate 30 MMOL In 0.9 260 / 260 % Sodium Chloride 250 ML @ 42 mls/hr IVPB ONCE ONE Rx#: [id number] Oral 150 / 150 200 / 200 640 / 640 Output: Urine 50 / 50 0 / 0 Other: Meal Ensure Clear Breakfast Percent of Meal Consumed 90% Stool Size Smear Smear Smear Stool Consistency formed Stool Color Bret Colored Brown # Voids 1 1 # Bowel Movements 1 Weight 115.757 kg Blood Glucose* 203 178 221 Patient Weight 02/10/18 23:59 Weight 115.757 kg - General physical appearance well developed, well nourished, no distress - Eyes normal ocular movement - ENT normal mucosa - Neck Neck exam: trachea midline - Respiratory normal expansion, normal respiratory effort, clear to auscultation - Cardiovascular Cardiovascular exam: Present: RRR, no murmurs/rubs/gallops - Abdomen Abdomen: Present: bowel sounds present, soft, tender (only right on incision) - Incision Incision: Present: clean and dry, intact - Integumentary no rash - Neurologic normal coordination, normal sensation - Musculoskeletal normal posture - Psychiatric oriented to time, oriented to person, oriented to place, speech is normal, memory intact - Labs 02/10/18 03:05 02/10/18 03:05 Diabetes panel 02/10/18 Range/Units 03:05 Sodium 142 (136-145) mEq/L Potassium 3.8 (3.5-5.1) mEq/L Chloride 114 H (98-107) mEq/L Carbon Dioxide 21 L (23-29) mEq/L BUN 27 H (8-23) mg/dL Creatinine 1.47 H (0.70-1.30) mg/dL Glucose 190 H (70-105) mg/dL Calcium 7.6 L (8.6-10.3) mg/dL Calcium panel 02/10/18 Range/Units 03:05 Calcium 7.6 L (8.6-10.3) mg/dL Phosphorus 2.3 L (2.7-4.5) mg/dL Pituitary panel 02/10/18 Range/Units 03:05 Sodium 142 (136-145) mEq/L Potassium 3.8 (3.5-5.1) mEq/L Chloride 114 H (98-107) mEq/L Carbon Dioxide 21 L (23-29) mEq/L BUN 27 H (8-23) mg/dL Creatinine 1.47 H (0.70-1.30) mg/dL Glucose 190 H (70-105) mg/dL Calcium 7.6 L (8.6-10.3) mg/dL Adrenal panel 02/10/18 Range/Units 03:05 Sodium 142 (136-145) mEq/L Potassium 3.8 (3.5-5.1) mEq/L Chloride 114 H (98-107) mEq/L Carbon Dioxide 21 L (23-29) mEq/L BUN 27 H (8-23) mg/dL Creatinine 1.47 H (0.70-1.30) mg/dL Glucose 190 H (70-105) mg/dL Calcium 7.6 L (8.6-10.3) mg/dL - VTE Documentation of Mechanical Device: Intermittent pneumatic compression device Consult Discharge Plan - Plan Referrals: Lorene Gonzales MD [Partnered Physician] - 02/18/18 11:05 am <Lorene Gonzales - Last Filed: 02/11/18 07:39> Date of Encounter: 02/10/18 - Assessment and Plan (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 advance diet to fulls continue prn pain control OOB,ambulate ok to shower gi/dvt prophylaxis trend Hb (2) Metastatic colon cancer to liver Current Visit: Yes Status: Chronic (3) Retroperitoneal mass Current Visit: Yes Status: Acute (4) S/P colectomy Current Visit: Yes Status: Acute (5) Anemia of chronic disease Current Visit: Yes Status: Chronic (6) CKD (chronic kidney disease), stage III Current Visit: Yes Status: Chronic (7) DVT prophylaxis Current Visit: Yes Status: Acute (8) Protein-calorie malnutrition, moderate Current Visit: Yes Status: Chronic Subjective Patient reports: no new complaints, still having pain, tolerating liquids well, flatus, bowel movement, afebrile Objective Vital Signs - Last 8 Hours Temp Pulse Resp BP Pulse Ox 02/11/18 07:33 16 95 02/11/18 07:21 98.8 F 85 16 137/73 95 02/11/18 04:19 98.5 F 96 16 128/68 94 02/11/18 00:12 16 95 02/10/18 23:39 98.9 F 91 18 132/72 94 Intake and Output 02/10/18 02/10/18 02/11/18 15:59 23:59 07:59 Intake Total 1380 / 1380 110 / 110 350 / 350 Output Total 150 / 150 225 / 225 1150 / 1150 Balance 1230 / 1230 -115 / -115 -800 / -800 Intake: IV Fluids 110 / 110 250 / 250 Intralipid 20% 250 ML @ 21 mls/ 250 / 250 hr IVPB DAILY@1700 [facility] Rx#: [id number] Sodium Phosphate 30 MMOL In 110 / 110 Dextrose 5% 100 ML @ 16 mls/hr IVPB ONCE ONE Rx#:[id number] Oral 1380 / 1380 0 / 0 100 / 100 Output: Urine 150 / 150 225 / 225 Catheter 1150 / 1150 Urethral (Harper) 700 / 700 Other: Meal Clears Percent of Meal Consumed 90% Stool Size Smear Large Stool Consistency formed loose liquid Stool Color Brown Brown # Voids 1 # Urine Diapers 1 # Bowel Movements 1 1 # Bowel Movement Diapers 0 Weight 115.551 kg Blood Glucose* 172 211 160 Patient Weight 02/11/18 23:59 Weight 115.551 kg - General physical appearance well developed, well nourished, no distress - Eyes normal ocular movement - ENT normal mucosa - Neck Neck exam: trachea midline - Respiratory normal expansion, normal respiratory effort - Cardiovascular Cardiovascular exam: Present: RRR - Abdomen Abdomen: Present: bowel sounds present, soft, tender. Absent: guarding, rebound - Incision Incision: Present: clean and dry, intact - Integumentary no growths - Neurologic normal coordination - Musculoskeletal normal posture - Psychiatric oriented to time, oriented to person, oriented to place, memory intact - Labs 02/11/18 04:27 02/11/18 04:27 Diabetes panel 02/11/18 Range/Units 04:27 Sodium 140 (136-145) mEq/L Potassium 3.6 (3.5-5.1) mEq/L Chloride 113 H (98-107) mEq/L Carbon Dioxide 21 L (23-29) mEq/L BUN 31 H (8-23) mg/dL Creatinine 1.54 H (0.70-1.30) mg/dL Glucose 162 H (70-105) mg/dL Calcium 7.3 L (8.6-10.3) mg/dL Calcium panel 02/11/18 Range/Units 04:27 Calcium 7.3 L (8.6-10.3) mg/dL Phosphorus 3.0 (2.7-4.5) mg/dL Pituitary panel 02/11/18 Range/Units 04:27 Sodium 140 (136-145) mEq/L Potassium 3.6 (3.5-5.1) mEq/L Chloride 113 H (98-107) mEq/L Carbon Dioxide 21 L (23-29) mEq/L BUN 31 H (8-23) mg/dL Creatinine 1.54 H (0.70-1.30) mg/dL Glucose 162 H (70-105) mg/dL Calcium 7.3 L (8.6-10.3) mg/dL Adrenal panel 02/11/18 Range/Units 04:27 Sodium 140 (136-145) mEq/L Potassium 3.6 (3.5-5.1) mEq/L Chloride 113 H (98-107) mEq/L Carbon Dioxide 21 L (23-29) mEq/L BUN 31 H (8-23) mg/dL Creatinine 1.54 H (0.70-1.30) mg/dL Glucose 162 H (70-105) mg/dL Calcium 7.3 L (8.6-10.3) mg/dL - Attending Attestation I examined this patient and my medical decision-making was reviewed with the Resident Physician. I agree with the documented findings, disposition and treatment plan as described except to the extent set forth below.
[2018-02-10] MEDS ORDERED: Melatonin 3 MG TABLET PO PRN (15:50)
[2018-02-10] MEDS ORDERED: Clinimix E 5%-15% SOLUTION 2,000 ML with MVI, adult with vitamin K 10 ML IVC SCH (17:00)
[2018-02-10] MEDS: 0.9 % Sodium Chloride 1,000 ML IVC SCH (17:09)
[2018-02-10] MEDS: Insulin DETEMIR 100 UNIT/ML X5UNITS SQ SCH (20:47)
[2018-02-11] MEDS: Metoclopramide 10 MG/2 ML VIAL IVP SCH ×3 (00:08→12:35)
[2018-02-11] MEDS: Insulin LISPRO 300 UNITS/3 ML VIAL SQ SCH ×5 (00:08→17:02)
[2018-02-11] MEDS: Ipratropium/Albuterol Neb 3 ML IH SCH ×7 (00:12→23:55)
[2018-02-11 04:43] LABS: Basophils % 0.2 %; Eosinophils # 0.3 K/mcL (0.0-0.6); Eosinophils % 3.1 %; Hematocrit 22.3 % (37.5-50.1); Hemoglobin 6.9 g/dL (12.9-16.9); Immature Granulocytes % 1.5 % (0-4); Lymphocytes # 0.8 K/mcL (0.6-4.6); Lymphocytes % 10.1 %; Mean Corpuscular HGB Conc 30.9 g/dL (31.6-35.5); Mean Corpuscular Hemoglobin 25.4 pg (28.0-33.3); Mean Platelet Volume 10.7 fL (9.4-12.4); Monocytes # 0.9 K/mcL (0.0-1.3); Monocytes % 11.5 %; Neutrophils # 5.9 K/mcL (1.6-8.9); Platelet Count 178 K/mcL (140-400); Red Blood Count 2.72 M/mcL (4.19-5.50); Red Cell Distribution Width 16.8 % (11.5-14.5); Segmented Neutrophils % 73.6 %
[2018-02-11 05:06] LABS: Calcium 7.3 mg/dL (8.6-10.3); Magnesium 1.9 mg/dL (1.6-2.6); Potassium 3.6 mEq/L (3.5-5.1)
[2018-02-11] MEDS: *HR* Heparin 5,000 UNIT/ML VIAL SQ SCH ×2 (06:10→16:59)
[2018-02-11] MEDS: 0.9 % Sodium Chloride 1,000 ML IVC SCH (08:13)
[2018-02-11] MEDS: Pantoprazole 40 MG VIAL IVP SCH (08:15)
--- NOTE | 2018-02-11 11:33 | Internal Med Progress Note ---
<PrimoLuis - Last Filed: 02/11/18 17:09> Date of Encounter: 02/11/18 Time of Encounter: 09:15 - Assessment and plan (1) SBO (small bowel obstruction) Current Visit: Yes Status: Acute Assessment and plan: Secondary to colonic/cecal mass -POD #8 exploratory laparotomy with right colectomy High-grade small bowel obstruction demonstrated by imaging. Secondary to adenocarcinoma of cecum Abd CT demonstrating large cecal mass at ileocecal valve compatible with carcinoma. High-grade small bowel show action. Liver lesions compatible with metastatic disease. 9 mm right lower lobe pulmonary nodules that may be metastases. Abdominal x-ray 02/09/2018 demonstrated transit of enteric contrast into colon since prior imaging. No evidence of his obstruction. Patient is passing gas and having multiple bowel movement. -Surgery following -Patient reports only mild pain -tolerating clear liquid diet today; dietary advance per surgical team who is considering advancing today or tomorrow -TPN managed by nutrition; will need to DC TPN once patient tolerates a substantial diet -- may need to increase glucose control once patient advances toward usual diet -encouraged patient to ambulate (2) 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 Assessment and plan: Adenocarcinoma of cecum recently diagnosed via biopsy (3) Hypertension Current Visit: Yes Status: Chronic Assessment and plan: history of hypertension. BP controlled holding home amlodipine -hydralazine IV PRN Qualifiers: Hypertension type: essential hypertension Qualified Code(s): I10 - Essential (primary) hypertension (4) Diabetes Current Visit: Yes Status: Chronic Assessment and plan: History of diabetes well-controlled with Januvia. 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 Diabetes mellitus complication status: with kidney complications Diabetes mellitus complication detail: with chronic kidney disease Chronic kidney disease stage: stage 3 (moderate) Qualified Code(s): E11.22 - Type 2 diabetes mellitus with diabetic chronic kidney disease; N18.3 - Chronic kidney disease, stage 3 (moderate); N18.3 - Chronic kidney disease, stage 3 (moderate) (5) Anemia Current Visit: Yes Status: Chronic Assessment and plan: Anemia, likely due to colorectal cancer no obvious active bleeding has had one unit PRBC -Hgb was 6.9 this AM; per surg team recs, will defer transfusion at this moment -will continue to monitor qAM Qualifiers: Anemia type: iron deficiency Iron deficiency anemia type: chronic blood loss Qualified Code(s): D50.0 - Iron deficiency anemia secondary to blood loss (chronic) (6) Acute kidney injury Current Visit: Yes Status: Acute Assessment and plan: LIZ on CKD creatinine 1.54 (increased from 1.47), suspect due to underhydration per IVF & PO intake I&O: -recheck BMP in AM and may need to increase IVF if still elevated despite tolerance of PO -avoid nephrotoxic agents, IVF, monitor Scr (7) Metastatic colon cancer to liver Current Visit: Yes Status: Chronic Assessment and plan: Liver metastases demonstrate by abdominal CT Abd CT demonstrating large cecal mass at ileocecal valve compatible with carcinoma. High-grade small bowel show action. Liver lesions compatible with metastatic disease. 9 mm right lower lobe pulmonary nodules that may be metastases. Follow-up with oncology after discharge (8) DVT prophylaxis Current Visit: Yes Status: Acute Assessment and plan: Heparin SQ (9) CKD (chronic kidney disease), stage III Current Visit: Yes Status: Chronic Assessment and plan: see plan above - Time Spent With Patient Total time spent is greater than 50% in coordination of care (as documented) at patient's floor/unit and/or counseling patient: - Subjective Interval history: Pt comfortably supine in bed. Pt has no acute complaints. No fevers overnight. Discussed case with resident on surgical service and plan today is to continue liquid diet with intent to advance today or tomorrow as tolerated. FSBGs have been elevated ranging between 172-222 on 02/10/18. LIZ on CKD marginally worse this AM. Hgb down to 6.9 this AM. - Constitutional Vitals: Temp Pulse Resp BP Pulse Ox 98.8 F 85 16 137/73 95 02/11/18 07:21 02/11/18 07:21 02/11/18 11:25 02/11/18 07:21 02/11/18 11:25 General appearance: Present: cooperative, A&O X 3, no acute distress, answers questions appropriately - Head Head exam: Present: atraumatic, normocephalic - Eye Eye exam: Present: normal appearance, PERRL, conjuntiva pink, sclera anicteric - Neck Neck exam general surgery: Present: supple, trachea midline. Absent: lymphadenopathy - Respiratory Respiratory exam: Present: CTAB. Absent: accessory muscle use, rales, rhonchi, wheezes - Cardiovascular Cardiovascular exam: Present: RRR, +S1, +S2. Absent: diastolic murmur, gallop, rubs, systolic murmur - GI/Abdominal GI/Abdominal exam: Present: normal bowel sounds, soft, no peritoneal signs. Absent: distended, guarding, tenderness Additional comments: Midline incision adherent with brisa in place; no evidence of dehiscence or infection including erythema/rubor/calor/edema/purulence - Extremities Exam Extremities exam: Present: warm, radial pulses palpable and symmetrical. Absent : calf tenderness, cyanotic, pedal edema - Neurological Exam Neurological exam: Present: oriented X3. Absent: facial droop, speech deficit - Skin Skin exam: Present: dry, intact, normal color. Absent: mottled, pallor Additional comments: no pallor evident Internal Medicine: Result - Labs CBC & Chem 7: 02/11/18 04:27 02/11/18 04:27 Labs: Short CBC 02/11/18 Range/Units 04:27 WBC 8.1 (4.3-11.1) K/mcL Hgb 6.9 L (12.9-16.9) g/dL Hct 22.3 L (37.5-50.1) % Plt Count 178 (140-400) K/mcL Neutrophils # 5.9 (1.6-8.9) K/mcL BMP 02/11/18 04:27 Sodium 140 Potassium 3.6 Chloride 113 H Carbon Dioxide 21 L BUN 31 H Creatinine 1.54 H Glucose 162 H Calcium 7.3 L - ABG Interpretation ABG results: PT/INR, D-dimer PT 15.4 Seconds (9.4-12.1) H 02/03/18 04:58 - VTE Documentation of Mechanical Device: Intermittent pneumatic compression device Consult Discharge Plan - Plan Referrals: Lorene Gonzales MD [Partnered Physician] - 02/18/18 11:05 am <Shruthi Abraham - Last Filed: 02/11/18 17:38> Date of Encounter: 02/11/18 - Assessment and plan (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 (2) Hypertension Current Visit: Yes Status: Chronic Qualifiers: Hypertension type: essential hypertension Qualified Code(s): I10 - Essential (primary) hypertension (3) Diabetes Current Visit: Yes Status: Chronic Qualifiers: Diabetes mellitus type: type 2 Diabetes mellitus retirement insulin use: without retirement use Diabetes mellitus complication status: with kidney complications Diabetes mellitus complication detail: with chronic kidney disease Chronic kidney disease stage: stage 3 (moderate) Qualified Code(s): E11.22 - Type 2 diabetes mellitus with diabetic chronic kidney disease; N18.3 - Chronic kidney disease, stage 3 (moderate); N18.3 - Chronic kidney disease, stage 3 (moderate) (4) DVT prophylaxis Current Visit: Yes Status: Acute (5) Anemia Current Visit: Yes Status: Chronic Qualifiers: Anemia type: iron deficiency Iron deficiency anemia type: chronic blood loss Qualified Code(s): D50.0 - Iron deficiency anemia secondary to blood loss (chronic) (6) Acute kidney injury Current Visit: Yes Status: Acute (7) Metastatic colon cancer to liver Current Visit: Yes Status: Chronic (8) SBO (small bowel obstruction) Current Visit: Yes Status: Acute (9) CKD (chronic kidney disease), stage III Current Visit: Yes Status: Chronic - Time Spent With Patient Total time spent is greater than 50% in coordination of care (as documented) at patient's floor/unit and/or counseling patient: - Constitutional Vitals: Temp Pulse Resp BP Pulse Ox 98.5 F 93 18 121/66 98 02/11/18 15:20 02/11/18 15:20 02/11/18 16:14 02/11/18 15:20 02/11/18 16:14 Internal Medicine: Result - Labs CBC & Chem 7: 02/11/18 04:27 02/11/18 04:27 Labs: Short CBC 02/11/18 Range/Units 04:27 WBC 8.1 (4.3-11.1) K/mcL Hgb 6.9 L (12.9-16.9) g/dL Hct 22.3 L (37.5-50.1) % Plt Count 178 (140-400) K/mcL Neutrophils # 5.9 (1.6-8.9) K/mcL BMP 02/11/18 04:27 Sodium 140 Potassium 3.6 Chloride 113 H Carbon Dioxide 21 L BUN 31 H Creatinine 1.54 H Glucose 162 H Calcium 7.3 L - ABG Interpretation ABG results: PT/INR, D-dimer PT 15.4 Seconds (9.4-12.1) H 02/03/18 04:58 - Attending Attestation I examined this patient and my medical decision-making was reviewed with the Resident Physician Dr. Tillman. I agree with the documented findings, disposition and treatment plan as described except to the extent set forth below. Mr. Mcfarland is a 77 y/o M admitted here for SBO associated with cecal mass. Pt did go for exp laparotomy. Pt states he is feeling little better today. Passing gas ok. tolerating cleat liquid diet ok. Gen: A, A, O x 3 Chest: Diminished BS b/l,no crackles Abd: Soft, Nt, clean incision a/p 1. Acute SBP s/p Exp Laparotomy POD # 8 Advanced diet as suggested by Surgery d/c TPN 2. Acute on chronic anemia could be dilutional surgery suggested to hold on PRBC transfusion close monitor for now 3. Cecal cancer Chemo port placement in AM need out pt f/u with Heme Onc
--- NOTE | 2018-02-11 11:42 | General Surgery Progress Note ---
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 Pt passing flatus and having BM Plan: advnace to regular diet continue clear ensure supplement Stop TPN continue Colace 100mg BID continue GI and DVT PPx continue IS Q1H while awake serial abd exams monitor daily labs continue strict Is &Os (2) Metastatic colon cancer to liver Current Visit: Yes Status: Chronic Pt follows with Oncology. Patient will follow up as an out patient for plans for chemotherapy per their notes (3) Retroperitoneal mass Current Visit: Yes Status: Acute Biopsy from Colonoscopy path consistent with metastatic carcinoma originating in the GI tract. Path from Surgery still pending. (4) S/P colectomy Current Visit: Yes Status: Acute POD #8 s/p Open R colectomy with Dr. Gonzales Pt with good bowel sounds, Pt having more formed bowel movements now. GI X ray 02/09 showed "Transit of enteric contrast into the colon since prior imaging. No current evidence of obstruction." advance to regular diet Continue GI ppx encourage ambulation and OOB (5) Anemia of chronic disease Current Visit: Yes Status: Chronic Hgb dropped today to 6.9 likely dilutional no need for transfusion at this time. Continue to monitor (6) CKD (chronic kidney disease), stage III Current Visit: Yes Status: Chronic Cr. continued to rise. Patient reports having some difficulty urinating. He has had no more fevers urinary cath reinserted Urine Cx pending continue to monitor continue management per primary team (7) Protein-calorie malnutrition, moderate Current Visit: Yes Status: Chronic Nutrition is on board. continue ensure stop TPN after this bag finishes appreciate any recommendations from nutrition. (8) DVT prophylaxis Current Visit: Yes Status: Acute continue Heparin SQ Q12H Subjective Patient reports: no new complaints, tolerating liquids well, flatus, bowel movement, diarrhea, afebrile Narrative: Patient reports loose bowel movements, Patient had difficulty urinating using the container. He states this was because he had to be bent over to use it while in the bed. Patient had paz reinserted due to urinary retention. Patient deneis N, V, Chest pain, SOB, Fever. Patient tolerating full liquid diet. Will stop TPN today. Objective Vital Signs - Last 8 Hours Temp Pulse Resp BP Pulse Ox 02/11/18 11:25 16 95 02/11/18 07:33 16 95 02/11/18 07:21 98.8 F 85 16 137/73 95 02/11/18 04:19 98.5 F 96 16 128/68 94 Intake and Output 02/10/18 02/11/18 02/11/18 23:59 07:59 15:59 Intake Total 110 / 110 350 / 350 1120 / 1120 Output Total 225 / 225 1150 / 1150 Balance -115 / -115 -800 / -800 1120 / 1120 Intake: IV Fluids 110 / 110 250 / 250 1000 / 1000 0.9 % Sodium Chloride 1,000 ML 1000 / 1000 @ 75 mls/hr IVC .[id number] [facility] Rx #:[id number] Intralipid 20% 250 ML @ 21 mls/ 250 / 250 hr IVPB DAILY@1700 [facility] Rx#: [id number] Sodium Phosphate 30 MMOL In 110 / 110 Dextrose 5% 100 ML @ 16 mls/hr IVPB ONCE ONE Rx#:[id number] Oral 0 / 0 100 / 100 120 / 120 Output: Urine 225 / 225 Catheter 1150 / 1150 Urethral (Paz) 700 / 700 Other: Meal Full Percent of Meal Consumed 0% Stool Size Large Stool Consistency loose liquid Stool Color Brown # Urine Diapers 1 # Bowel Movements 1 # Bowel Movement Diapers 0 Weight 115.551 kg Blood Glucose* 211 160 Patient Weight 02/11/18 23:59 Weight 115.551 kg - General physical appearance well developed, well nourished, no distress - Eyes normal ocular movement - ENT normal mucosa - Neck Neck exam: trachea midline - Respiratory normal expansion, normal respiratory effort, clear to auscultation - Cardiovascular Cardiovascular exam: Present: RRR, no murmurs/rubs/gallops - Abdomen Abdomen: Present: bowel sounds present, soft, tender (over incision. ) - Incision Incision: Present: clean and dry, intact (one staple has come loose after snaggign on robe, but incision is still aproximated and well healing.) - Integumentary no rash - Neurologic normal coordination, normal sensation, other (occassional tremor in b/l hands seems mostly positional patient states he has had this for a long time. ) - Musculoskeletal normal posture - Psychiatric oriented to time, oriented to person, oriented to place, speech is normal, memory intact - Labs 02/11/18 04:27 02/11/18 04:27 Diabetes panel 02/11/18 Range/Units 04:27 Sodium 140 (136-145) mEq/L Potassium 3.6 (3.5-5.1) mEq/L Chloride 113 H (98-107) mEq/L Carbon Dioxide 21 L (23-29) mEq/L BUN 31 H (8-23) mg/dL Creatinine 1.54 H (0.70-1.30) mg/dL Glucose 162 H (70-105) mg/dL Calcium 7.3 L (8.6-10.3) mg/dL Calcium panel 02/11/18 Range/Units 04:27 Calcium 7.3 L (8.6-10.3) mg/dL Phosphorus 3.0 (2.7-4.5) mg/dL Pituitary panel 02/11/18 Range/Units 04:27 Sodium 140 (136-145) mEq/L Potassium 3.6 (3.5-5.1) mEq/L Chloride 113 H (98-107) mEq/L Carbon Dioxide 21 L (23-29) mEq/L BUN 31 H (8-23) mg/dL Creatinine 1.54 H (0.70-1.30) mg/dL Glucose 162 H (70-105) mg/dL Calcium 7.3 L (8.6-10.3) mg/dL Adrenal panel 02/11/18 Range/Units 04:27 Sodium 140 (136-145) mEq/L Potassium 3.6 (3.5-5.1) mEq/L Chloride 113 H (98-107) mEq/L Carbon Dioxide 21 L (23-29) mEq/L BUN 31 H (8-23) mg/dL Creatinine 1.54 H (0.70-1.30) mg/dL Glucose 162 H (70-105) mg/dL Calcium 7.3 L (8.6-10.3) mg/dL - VTE Documentation of Mechanical Device: Intermittent pneumatic compression device Consult Discharge Plan - Plan Additional Instructions: #1 may shower, no tub bath for 2 weeks #2 wash incisions with soap and water and pat dry daily #3 no lifting, pushing, pulling more than 15 pounds for the next 6 weeks #4 no driving until off narcotics for 24 hours and able to safely react in the car #5 may climb stairs Referrals: Mario Hooker MD [Partnered Physician] - 02/24/18 9:30 am Lorene Gonzales MD [Partnered Physician] - 02/18/18 11:05 am Prescriptions: OxyCODONE/APAP 5/325 [Percocet 5/325 MG] 1 each PO Q6HR PRN 7 Days #28 tablet PRN Reason: Pain Tamsulosin [Flomax] 0.4 mg PO DAILY #30 cap.er.24h <Lorene Gonzales - Last Filed: 02/12/18 10:03> Date of Encounter: 02/11/18 Time of Encounter: 13:00 - Assessment and Plan (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 advance to regular diet start percocet and stop other pain medication tomi temple, on in am, off at night stop colace due to diarrhea sliv, stop tpn after runs out tonight (2) Metastatic colon cancer to liver Current Visit: Yes Status: Chronic (3) Retroperitoneal mass Current Visit: Yes Status: Acute (4) S/P colectomy Current Visit: Yes Status: Acute (5) Anemia of chronic disease Current Visit: Yes Status: Chronic transfuse 1 unit as patient complaining of dizziness and lightheadedness when he gets up (6) CKD (chronic kidney disease), stage III Current Visit: Yes Status: Chronic (7) DVT prophylaxis Current Visit: Yes Status: Acute (8) Protein-calorie malnutrition, moderate Current Visit: Yes Status: Chronic (9) Urinary retention Current Visit: Yes Status: Acute paz in place, will have f/u with urology next week, started flomax Subjective Patient reports: tolerating a regular diet, flatus, bowel movement, afebrile Narrative: paz placed overnight for urinary retention Objective Vital Signs - Last 8 Hours Temp Pulse Resp BP Pulse Ox 02/12/18 07:55 16 94 02/12/18 07:46 98.7 F 84 15 161/77 94 02/12/18 05:11 98.6 F 92 15 144/68 94 02/12/18 03:35 16 94 Intake and Output 02/11/18 02/12/18 02/12/18 23:59 07:59 15:59 Intake Total 1598 / 1598 0 / 0 0 / 0 Output Total 250 / 250 575 / 575 Balance 1348 / 1348 -575 / -575 0 / 0 Intake: IV Fluids 1128 / 1128 Clinimix E 5%-15% SOLUTION 2, 1128 / 1128 000 ML @ 50 mls/hr IVC .Q24H [facility] with M.v.i. Adult 10 ml Rx# :[id number] Oral 120 / 120 0 / 0 0 / 0 Blood Product 350 / 350 Rbcs Leuko Poor As-1 Unit 350 / 350 [id number] Output: Catheter 250 / 250 575 / 575 Other: Meal Dinner Breakfast Percent of Meal Consumed 20% 0% Stool Size Large Stool Consistency loose Stool Color Brown # Bowel Movements 0 1 Weight 115.212 kg Blood Glucose* 196 136 Patient Weight 02/12/18 23:59 Weight 115.212 kg - General physical appearance well developed, well nourished, no distress - Eyes PERRL, normal ocular movement - ENT normal mucosa, normocephalic - Neck Neck exam: trachea midline - Respiratory normal expansion, clear to auscultation - Cardiovascular Cardiovascular exam: Present: RRR - Abdomen Abdomen: Present: bowel sounds present, soft, tender - Incision Incision: Present: clean and dry, intact - Genitourinary other (paz in with clear yellow urine) - Integumentary no rash - Neurologic normal coordination - Musculoskeletal normal posture, other (bilateral lower leg edema) - Psychiatric oriented to time, oriented to person, speech is normal, memory intact - Labs 02/12/18 03:27 02/12/18 03:27 Diabetes panel 02/12/18 Range/Units 03:27 Sodium 138 (136-145) mEq/L Potassium 4.0 (3.5-5.1) mEq/L Chloride 112 H (98-107) mEq/L Carbon Dioxide 21 L (23-29) mEq/L BUN 26 H (8-23) mg/dL Creatinine 1.42 H (0.70-1.30) mg/dL Glucose 158 H (70-105) mg/dL Calcium 7.2 L (8.6-10.3) mg/dL Calcium panel 02/12/18 Range/Units 03:27 Calcium 7.2 L (8.6-10.3) mg/dL Pituitary panel 02/12/18 Range/Units 03:27 Sodium 138 (136-145) mEq/L Potassium 4.0 (3.5-5.1) mEq/L Chloride 112 H (98-107) mEq/L Carbon Dioxide 21 L (23-29) mEq/L BUN 26 H (8-23) mg/dL Creatinine 1.42 H (0.70-1.30) mg/dL Glucose 158 H (70-105) mg/dL Calcium 7.2 L (8.6-10.3) mg/dL Adrenal panel 02/12/18 Range/Units 03:27 Sodium 138 (136-145) mEq/L Potassium 4.0 (3.5-5.1) mEq/L Chloride 112 H (98-107) mEq/L Carbon Dioxide 21 L (23-29) mEq/L BUN 26 H (8-23) mg/dL Creatinine 1.42 H (0.70-1.30) mg/dL Glucose 158 H (70-105) mg/dL Calcium 7.2 L (8.6-10.3) mg/dL - Attending Attestation I examined this patient and my medical decision-making was reviewed with the Resident Physician. I agree with the documented findings, disposition and treatment plan as described except to the extent set forth below.
[2018-02-11] MEDS ORDERED: *HR* OxyCODONE/APAP 5/325 TABLET PO PRN (13:18)
[2018-02-11] MEDS ORDERED: 0.9 % Sodium Chloride 500 ML ONE (14:40)
[2018-02-11] MEDS ORDERED: Insulin LISPRO 300 UNITS/3 ML VIAL SQ SCH (21:00)
[2018-02-12] MEDS: Ipratropium/Albuterol Neb 3 ML IH SCH ×2 (03:35→07:54)
[2018-02-12 03:46] LABS: Basophils % 0.2 %; Eosinophils # 0.2 K/mcL (0.0-0.6); Eosinophils % 2.7 %; Hematocrit 22.5 % (37.5-50.1); Hemoglobin 7.2 g/dL (12.9-16.9); Immature Granulocytes % 1.4 % (0-4); Lymphocytes # 0.7 K/mcL (0.6-4.6); Lymphocytes % 11.6 %; Mean Corpuscular Volume 81.2 fL (83.0-100.0); Monocytes # 0.8 K/mcL (0.0-1.3); Monocytes % 12.7 %; Neutrophils # 4.5 K/mcL (1.6-8.9); Platelet Count 176 K/mcL (140-400); Red Blood Count 2.77 M/mcL (4.19-5.50); Red Cell Distribution Width 16.5 % (11.5-14.5); Segmented Neutrophils % 71.4 %
[2018-02-12 04:10] LABS: Calcium 7.2 mg/dL (8.6-10.3)
[2018-02-12] MEDS: *HR* Heparin 5,000 UNIT/ML VIAL SQ SCH (06:20)
[2018-02-12 07:55] VITALS: BP 161/77
[2018-02-12] MEDS: Insulin LISPRO 300 UNITS/3 ML VIAL SQ SCH (08:30)
--- NOTE | 2018-02-12 09:17 | General Surgery Progress Note ---
Date of Encounter: 02/12/18 Time of Encounter: 09:00 - Assessment and Plan (1) Mass of cecum Status: Acute POD #9 Exploratory laparotomy, right colectomy with Dr. Gonzales Pathology complete 02/12/18- ascending Colon: adenocarcinoma, invading through muscularis propria into pericolic tissue, metastasis to 12 of 14 lymph node nodes. Regular diet Supportive care and pain control Continue paz catheter to SD- needs to discharge with paz catheter Incentive Spirometer every 1 hour while awake PPI therapy daily Oncology consult initiated after last weeks admission May discharge to home from a surgical standpoint when medically ready (2) Retroperitoneal mass Status: Acute s/p Biopsy Pathology- Retroperitoneal mass, core biopsy: Positive for metastatic carcinoma. See comment. 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 Tumor seems to invade the soft tissue and bone. Immunohistochemical stains performed (reported below) are suggestive of lower gastrointestinal tract as a primary site. Oncology consult initiated after last weeks admission (3) Metastasis to liver Status: Acute Oncology consult initiated after last weeks admission (4) Anemia of chronic disease Status: Chronic Hgb- 6.9>7.2 (s/p transfusion of 1 unit of PRBC 02/11/18) Patient asymptomatic today Will continue to monitor and treat as necessary (5) Acute kidney injury Status: Acute Cr- 1.54>1.42 (improving) Avoid nephrotoxic medications Continue paz catheter to SD (6) Urinary retention Status: Acute Continue paz catheter to SD- discharge to home with catheter Flomax started 02/11/18 Rx complete Subjective Patient reports: no new complaints, feels better, tolerating a regular diet, flatus, bowel movement, afebrile Objective Vital Signs - Last 8 Hours Temp Pulse Resp BP Pulse Ox 02/12/18 07:55 16 94 02/12/18 07:46 98.7 F 84 15 161/77 94 02/12/18 05:11 98.6 F 92 15 144/68 94 02/12/18 03:35 16 94 Intake and Output 02/11/18 02/12/18 02/12/18 23:59 07:59 15:59 Intake Total 1598 / 1598 0 / 0 0 / 0 Output Total 250 / 250 575 / 575 Balance 1348 / 1348 -575 / -575 0 / 0 Intake: IV Fluids 1128 / 1128 Clinimix E 5%-15% SOLUTION 2, 1127 000 ML @ 50 mls/hr IVC .Q24H [facility] with M.v.i. Adult 10 ml Rx# :[id number] Oral 120 / 120 0 / 0 0 / 0 Blood Product 350 / 350 Rbcs Leuko Poor As-1 Unit 350 / 350 [id number] Output: Catheter 250 / 250 575 / 575 Other: Meal Dinner Breakfast Percent of Meal Consumed 20% 0% Stool Size Large Stool Consistency loose Stool Color Brown # Bowel Movements 0 1 Weight 115.212 kg Blood Glucose* 196 136 Patient Weight 02/12/18 23:59 Weight 115.212 kg - General physical appearance well developed, well nourished, no distress, no pain - Eyes normal ocular movement - ENT normal mucosa, atraumatic, normocephalic - Neck Neck exam: trachea midline - Respiratory normal respiratory effort, clear to auscultation - Cardiovascular Cardiovascular exam: Present: RRR - Abdomen Abdomen: Present: bowel sounds present, soft, tender (minimal, expected tenderness) - Incision Incision: Present: clean and dry, intact - Genitourinary other (Paz catheter to straight drain with clear, yellow urine) - Neurologic CN 2-12 grossly intact - Psychiatric oriented to time, oriented to person, oriented to place, speech is normal, memory intact - Labs 02/12/18 03:27 02/12/18 03:27 Diabetes panel 02/12/18 Range/Units 03:27 Sodium 138 (136-145) mEq/L Potassium 4.0 (3.5-5.1) mEq/L Chloride 112 H (98-107) mEq/L Carbon Dioxide 21 L (23-29) mEq/L BUN 26 H (8-23) mg/dL Creatinine 1.42 H (0.70-1.30) mg/dL Glucose 158 H (70-105) mg/dL Calcium 7.2 L (8.6-10.3) mg/dL Calcium panel 02/12/18 Range/Units 03:27 Calcium 7.2 L (8.6-10.3) mg/dL Pituitary panel 02/12/18 Range/Units 03:27 Sodium 138 (136-145) mEq/L Potassium 4.0 (3.5-5.1) mEq/L Chloride 112 H (98-107) mEq/L Carbon Dioxide 21 L (23-29) mEq/L BUN 26 H (8-23) mg/dL Creatinine 1.42 H (0.70-1.30) mg/dL Glucose 158 H (70-105) mg/dL Calcium 7.2 L (8.6-10.3) mg/dL Adrenal panel 02/12/18 Range/Units 03:27 Sodium 138 (136-145) mEq/L Potassium 4.0 (3.5-5.1) mEq/L Chloride 112 H (98-107) mEq/L Carbon Dioxide 21 L (23-29) mEq/L BUN 26 H (8-23) mg/dL Creatinine 1.42 H (0.70-1.30) mg/dL Glucose 158 H (70-105) mg/dL Calcium 7.2 L (8.6-10.3) mg/dL - VTE Documentation of Mechanical Device: Graduated compression elastic hosiery Consult Discharge Plan - Plan Additional Instructions: #1 may shower, no tub bath for 2 weeks #2 wash incisions with soap and water and pat dry daily #3 no lifting, pushing, pulling more than 15 pounds for the next 6 weeks #4 no driving until off narcotics for 24 hours and able to safely react in the car #5 may climb stairs Referrals: Mario Hooker MD [Partnered Physician] - 02/24/18 9:30 am Lorene Gonzales MD [Partnered Physician] - 02/18/18 11:05 am Prescriptions: OxyCODONE/APAP 5/325 [Percocet 5/325 MG] 1 each PO Q6HR PRN 7 Days #28 tablet PRN Reason: Pain Tamsulosin [Flomax] 0.4 mg PO DAILY #30 cap.er.24h
--- NOTE | 2018-02-12 09:30 | Discharge Summary ---
<Luis Tillman - Last Filed: 02/12/18 14:28> - NOTES TO OUTPATIENT PROVIDER Notes to Outpatient Provider: Patient is to follow-up with surgery status post right fernandez colectomy, as well as heme/4:/cecum cancer. Patient is also had some acute urinary retention and will be discharged with fully in place to follow-up with urology next week. Patient's general surgery follow-up is also scheduled for next week. Patient has been independently ambulatory and otherwise without any complaints or concerns of acute surgical complications such as fevers, or surgical site dehiscence/infection. Orders not resulted at time of discharge: Pending orders 02/10/18 12:45 Culture,Urine [RM] Routine Date of Encounter: 02/12/18 Time of Encounter: 08:45 - Discharge Diagnosis (1) Metastatic colon cancer to liver Priority: Primary Status: Chronic Comments: Status post right fernandez colectomy. Needs appropriate follow-up with surgery which is arranged for next week. Midline incision brisa in place and wound without any signs of dehiscence or infection. Patient well-controlled and patient tolerating PO diet without difficulty. 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 (4) Anemia Priority: Primary Status: Chronic Comments: Has been low but stable postop; transfused one unit pRBCs yesterday. Discharge hemoglobin 7.2 g/dL. Will need recheck within one week. Qualifiers: Anemia type: iron deficiency Iron deficiency anemia type: chronic blood loss Qualified Code(s): D50.0 - Iron deficiency anemia secondary to blood loss (chronic) (5) Acute kidney injury Priority: Primary Status: Acute Comments: Improving with advancement of usual diet; creatinine level is 1.42 this AM. (6) Hypertension Priority: Secondary Status: Chronic Comments: Resume usual home meds on discharge Qualifiers: Hypertension type: essential hypertension Qualified Code(s): I10 - Essential (primary) hypertension (7) Diabetes Priority: Secondary Status: Chronic Comments: Resume usual home meds on discharge Qualifiers: Diabetes mellitus type: type 2 Diabetes mellitus long term care social worker insulin use: without long term care social worker use Diabetes mellitus complication status: with kidney complications Diabetes mellitus complication detail: with chronic kidney disease Chronic kidney disease stage: stage 3 (moderate) Qualified Code(s): E11.22 - Type 2 diabetes mellitus with diabetic chronic kidney disease; N18.3 - Chronic kidney disease, stage 3 (moderate); N18.3 - Chronic kidney disease, stage 3 (moderate) (8) CKD (chronic kidney disease), stage III Priority: Secondary Status: Chronic Hospital course: Mr. Mcfarland is a 77 year old male with known history of colon cancer and partial small bowel obstruction was initially admitted on 01/31/18 by the ED for abdominal pain, nausea, and vomiting. Surgery consulted in primary workup revealed near complete bowel obstruction near ileocecal junction due to cecal tumor. Further workup has demonstrated evidence of metastatic lesions in the liver. 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 Patient has worked with PT/OT and postop. Has regained his ability to independently ambulate; OT states patient does not have any environmental needs on discharge. Patient is still was some stable postop anemia with kerri of 6.9 which has been stable; he has had 2 transfusions of pRBCs on 02/03/18 and 02/11/18. Patient has ultimately transition to full diet and is tolerating that well, able to pass lattice and bowel movements. Patient is also dose of urinary retention which is relatively Him requiring Harper catheterization. Patient is to follow up next week with urology and is being discharged with Harper catheter left in place for the time being. Patient is also to follow-up with general surgery next week. Will have patient perform labs to reassess for postop anemia as well as renal function on 02/16/18. Home health referral placed for nursing/PT/OT care and postop recovery period. Patient has been educated on return precautions any expresses understanding including , but not limited to, recurrent fevers/chills/sweats, lightheadedness/syncope, abdominal pain, nausea, vomiting, diarrhea, dysuria, suprapubic tenderness, or hematuria. - Time Spent with Patient Total time spent providing and/or coordinating discharge services: - Discharge Medications Prescriptions: OxyCODONE/APAP 5/325 [Percocet 5/325 MG] 1 each PO Q6HR PRN 7 Days #28 tablet PRN Reason: Pain Tamsulosin [Flomax] 0.4 mg PO DAILY #30 cap.er.24h Home Medications: Aspirin 81 mg PO DAILY 01/24/18 [History] Cholecalciferol (D-3) [Vitamin D] 1,000 mg PO DAILY 01/24/18 [History] Flaxseed Oil [[place]-3 Flaxseed Oil] 1,000 mg PO DAILY 01/24/18 [History] Simvastatin [Zocor] 40 mg PO HS 01/24/18 [History] SitaGLIPtin [Januvia] 25 mg PO DAILY 01/24/18 [History] Amlodipine Besylate/Benazepril [Lotrel 10-40 mg Capsule] 1 cap PO DAILY [History] Lidocaine/Prilocaine [Emla] 1 appl TP AD #30 gm 01/30/18 [Rx] Omeprazole [PriLOSEC] 20 mg PO BIDAC #30 cap 01/30/18 [Rx] Ondansetron HCl [Zofran] 4 mg PO Q4H PRN #30 tablet 01/30/18 [Rx] Prochlorperazine Maleate [Compazine] 10 mg PO Q6H PRN #30 tablet 01/30/18 [Rx] Hydrochlorothiazide [Microzide] 12.5 mg PO DAILY 02/01/18 [History] OxyCODONE/APAP 5/325 [Percocet 5/325 MG] 1 each PO Q6HR PRN 7 Days #28 tablet [Rx] Tamsulosin [Flomax] 0.4 mg PO DAILY #30 cap.er.24h 02/12/18 [Rx] Allergies/Adverse Reactions: 3 Allergy/AdvReac Type Severity Reaction Status Date / Time No Known Drug Allergies Allergy Unknown None Verified 01/31/18 11:56 Date of admission: 01/31/18 18:43 Primary care physician: Reggie Reynoso MD Consults: 02/05/18 09:05 Consult to Nutrition [CONS] Routine Comment: Consulting Provider: NUTRITION Reason for Dietary Consult: TPN Start and Manage 02/05/18 10:56 Consult to Invasive Line Access Team [CONS] Routine Reason for Consult: Picc Line Insertion for TPN Line Type: PICC Discharging clinician: Luis Tillman Anticipated date of discharge: 02/12/18 - Constitutional Vitals: Temp Pulse Resp BP Pulse Ox 98.7 F 84 16 161/77 94 02/12/18 07:46 02/12/18 07:46 02/12/18 07:55 02/12/18 07:46 02/12/18 07:55 CONSTITUTIONAL: Alert and oriented X3, well-nourished, well appearing, in no apparent distress HEAD: Normocephalic; atraumatic. EYES: PERRL, no scleral icterus, no drainage, no conjunctival injection Oropharynx: pink/moist, no tonsillar edema/erythema/exudates RESP: NRD without use of accessory musculature, CTA b/l with no wheezes/rales/ rhonchi CARD: Regular rhythm, without murmurs, rubs, or gallop ABD: grossly normal, soft, non-tender, no guarding/distention/rigidity; midline surgical incision stable without any acute signs of infection or dehiscence SKIN: normal appearance, no pallor/diaphoresis,mottling,jaundice,cyanosis EXT: Rad pulses 2+ and symmetrical; no lateralizing edema; no other lesions seen PSYCH: appropriate mood/affect General appearance: Present: cooperative, A&O X 3, no acute distress, answers questions appropriately - Patient Status Disposition: Home, Self-Care Condition: Fair Functional capacity at discharge: independent ambulation Overall status at discharge: patient is progressing back to baseline - Ambulatory Orders Ambulatory Orders: Basic Metabolic Panel [CHEM] Time Frame: 4 Days, Facility: [facility], Location: Lab Complete Blood Count [HEME] Time Frame: 4 Days, Facility: [facility], Location: Lab - Discharge Instructions Follow Up With: Mario Hooker MD [Partnered Physician] - 02/24/18 9:30 am Lorene Gonzales MD [Partnered Physician] - 02/18/18 11:05 am Additional Instructions: #1 may shower, no tub bath for 2 weeks #2 wash incisions with soap and water and pat dry daily #3 no lifting, pushing, pulling more than 15 pounds for the next 6 weeks #4 no driving until off narcotics for 24 hours and able to safely react in the car #5 may climb stairs - Diet and Activity Activity: increase activity as tolerated Diet: advance to your usual diet - VTE Documentation of Mechanical Device: Graduated compression elastic hosiery <ThalnatalymeghanShruthi bishop - Last Filed: 02/12/18 15:21> Date of Encounter: 02/12/18 - Discharge Diagnosis (1) Carcinoma of cecum Status: Chronic (2) Hypertension Status: Chronic Qualifiers: Hypertension type: essential hypertension Qualified Code(s): I10 - Essential (primary) hypertension (3) Diabetes Status: Chronic Qualifiers: Diabetes mellitus type: type 2 Diabetes mellitus long term care social worker insulin use: without long term care social worker use Diabetes mellitus complication status: with kidney complications Diabetes mellitus complication detail: with chronic kidney disease Chronic kidney disease stage: stage 3 (moderate) Qualified Code(s): E11.22 - Type 2 diabetes mellitus with diabetic chronic kidney disease; N18.3 - Chronic kidney disease, stage 3 (moderate); N18.3 - Chronic kidney disease, stage 3 (moderate) (4) Anemia Status: Chronic Qualifiers: 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 Mcfarland is a 77 year old male - Time Spent with Patient Total time spent providing and/or coordinating discharge services: Date of admission: 01/31/18 18:43 Primary care physician: Reggie Reynoso MD Consults: 02/05/18 09:05 Consult to Nutrition [CONS] Routine Comment: Consulting Provider: NUTRITION Reason for Dietary Consult: TPN Start and Manage 02/05/18 10:56 Consult to Invasive Line Access Team [CONS] Routine Reason for Consult: Picc Line Insertion for TPN Line Type: PICC - Constitutional Vitals: Temp Pulse Resp BP Pulse Ox 98.7 F 84 16 161/77 94 02/12/18 07:46 02/12/18 07:46 02/12/18 07:55 02/12/18 07:46 02/12/18 07:55 - Attending Attestation I examined this patient and my medical decision-making was reviewed with the Resident Physician Dr. Tillman. I agree with the documented findings, disposition and treatment plan as described except to the extent set forth below. Mr. Mcfarland is a 77 y/o M admitted here for SBO associated with cecal mass. Pt did go for exp laparotomy. Pt states he is feeling little better today. Passing gas ok. tolerating soft diet well Gen: A, A, O x 3 Chest: Diminished BS b/l,no crackles Abd: Soft, Nt, clean incision a/p 1. Acute SBP s/p Exp Laparotomy POD # 9 2. Acute on chronic anemia could be dilutional s/p 1 U PRBc.. Improved HB 3. Cecal cancer Chemo port placement in AM need out pt f/u with Heme Onc Medically stable to d/c home today with home health services
--- NOTE | 2018-02-12 10:41 | Physician Discharge Referral ---
Home Health/Hosp Referral Info Transfer to: Home Health Provider in Charge Post Discharge: PCP - Diagnosis (1) Metastatic colon cancer to liver Priority: Primary Status: Chronic (2) Carcinoma of cecum Priority: Primary Status: Chronic (3) SBO (small bowel obstruction) Priority: Primary Status: Acute (4) Anemia Priority: Primary Status: Chronic (5) Acute kidney injury Priority: Primary Status: Acute (6) CKD (chronic kidney disease), stage III Priority: Secondary Status: Chronic (7) Hypertension Priority: Secondary Status: Chronic (8) Diabetes Priority: Secondary Status: Chronic - Respiratory Orders Smoking Cessation: Smoking cessation has been advised. For more information, call the [place] Tobacco Quit Line at 9-400-MPUA-NOW. - Diet/Nutrition Diet/Nutrition Orders: Regular - Activity Activity Orders: Ambulate - Services Needed Following services are medically necessary services: Nursing, Physical Therapy, Occupational Therapy Home Care Orders: Leave Harper in place pending OP follow up with Urology. - Transfer Medications Prescriptions: OxyCODONE/APAP 5/325 [Percocet 5/325 MG] 1 each PO Q6HR PRN 7 Days #28 tablet PRN Reason: Pain Tamsulosin [Flomax] 0.4 mg PO DAILY #30 cap.er.24h Home Medications: Aspirin 81 mg PO DAILY 01/24/18 [History] Cholecalciferol (D-3) [Vitamin D] 1,000 mg PO DAILY 01/24/18 [History] Flaxseed Oil [[place]-3 Flaxseed Oil] 1,000 mg PO DAILY 01/24/18 [History] Simvastatin [Zocor] 40 mg PO HS 01/24/18 [History] SitaGLIPtin [Januvia] 25 mg PO DAILY 01/24/18 [History] Amlodipine Besylate/Benazepril [Lotrel 10-40 mg Capsule] 1 cap PO DAILY [History] Lidocaine/Prilocaine [Emla] 1 appl TP AD #30 gm 01/30/18 [Rx] Omeprazole [PriLOSEC] 20 mg PO BIDAC #30 cap 01/30/18 [Rx] Ondansetron HCl [Zofran] 4 mg PO Q4H PRN #30 tablet 01/30/18 [Rx] Prochlorperazine Maleate [Compazine] 10 mg PO Q6H PRN #30 tablet 01/30/18 [Rx] Hydrochlorothiazide [Microzide] 12.5 mg PO DAILY 02/01/18 [History] OxyCODONE/APAP 5/325 [Percocet 5/325 MG] 1 each PO Q6HR PRN 7 Days #28 tablet [Rx] Tamsulosin [Flomax] 0.4 mg PO DAILY #30 cap.er.24h 02/12/18 [Rx] Allergies/Adverse Reactions: 3 Allergy/AdvReac Type Severity Reaction Status Date / Time No Known Drug Allergies Allergy Unknown None Verified 01/31/18 11:56 Certification: Further, I certify that my clinical findings support that this patient is homebound (i.e. absences from home require considerable and taxing effort and are for medical reasons or anabaptism services or infrequently or short duration when for other reasons) because: Homebound Reason: Post-surgery restriction and or conditions limit ability to leave home Attestation: My signature below is to certify that this patient is under my care and that I, or nurse practitioner, or a physician's program assistant working with me, has a face-to -face encounter with this patient.
== END 2018-02-12 11:16 | disposition home or self-care (01) | DRG 330 ==
LOC: 3ANU 11:54 → EMEROO 11:54 → 3ANU 18:43 → SUATTDRO 18:43
PROVIDERS: ADMIT Internal Medicine; ATTEND Internal Medicine

== ENCOUNTER 2018-06-01 12:13 | Observation (INO) ==
[2018-06-01] MEDS ORDERED: Naloxone 0.4 MG/ML INJ IVP PRN (17:53)
[2018-06-01 18:38] LABS: Eosinophils % 0.4 %; Hematocrit 26.3 % (37.5-50.1); Hemoglobin 8.8 g/dL (12.9-16.9); Immature Granulocytes % 1.4 % (0-4); Mean Corpuscular HGB Conc 33.5 g/dL (31.6-35.5); Mean Corpuscular Hemoglobin 28.9 pg (28.0-33.3); Mean Corpuscular Volume 86.5 fL (83.0-100.0); Red Blood Count 3.04 M/mcL (4.19-5.50); Red Cell Distribution Width 18.4 % (11.5-14.5)
[2018-06-01 18:40] LABS: Basophils % 1.1 %; Immature Platelets 4.3 % (1.1-6.1); Lymphocytes # 1.2 K/mcL (0.6-4.6); Lymphocytes % 43.2 %; Monocytes # 0.4 K/mcL (0.0-1.3); Neutrophils # 1.1 K/mcL (1.6-8.9); Segmented Neutrophils % 39.9 %
[2018-06-01] MEDS: 0.9 % Sodium Chloride 1,000 ML IVC SCH (18:43)
[2018-06-01 18:56] LABS: Magnesium 1.7 mg/dL (1.6-2.6); Potassium 4.2 mEq/L (3.5-5.1)
[2018-06-01 19:02] LABS: Platelet Count 99 K/mcL (140-400)
[2018-06-01 19:04] LABS: Platelet Estimate Marked Decrease (Normal); Reactive Lymphocytes Present (Not Present)
--- NOTE | 2018-06-02 00:58 | Internal Med History&Physical ---
Date of Encounter: 06/01/18 Time of Encounter: 23:00 Internal Medicine - H&P: HPI Chief complaint: Weaknes; stage 4 adenoca of colon Admitted From: Home Plans for Post Hospital Care: Home History of present illness: Mr. Mcfarland is a 77 year old male. The patient has had a stage IV adenocarcinoma of colon. It was discovered in January. He had right hemicolectomy. He has metastases to liver. He has pulmonary nodules suspected of being metastases. The patient gets palliative chemotherapy from oncology. He has been getting progressively weaker/more fatigued. He fell on , 11 days ago. He has not been walking since then. He complains of extremely poor appetite. Denies fever and chills. Denies chest pain. Denies abdominal pain, nausea and vomiting. He has underlying type 2 diabetes mellitus ([id number]). He has developed a mild/moderate anemia. Review of systems: All 14 organ systems were reviewed by me with the patient. Positive and pertinent negative findings are listed above. The rest of organ systems is negative. Physical Exam: Skin: Free of rash and discoloration. Eyes: Sclera is white. There is no discharge from eyes. ENMT: Oral/pharyngeal mucosa is normal in appearance. There is no discharge from nose or ears. Respiratory: Normal breath sounds with no crackles and wheezes bilaterally. CV: Heart is regular with no gallop or murmur. GI: Abdomen is flat and soft with no palpable mass or visceromegaly. : There is no tenderness in patient's flanks bilaterally. Neuro exam: He has good strength in upper and lower extremities. He has normal eye movements. Psychiatric: He has normal affect. His thought process is appropriate to the situation. A/P: Stage IV adenocarcinoma of colon with progressing debility. We will give him IV fluids, Megace and physical therapy. The patient will be seen by his oncologist tomorrow. Type 2 diabetes mellitus. His random glucose is 87. It is likely under control. We will continue Januvia. Anemia. His today's hemoglobin is 8.8. It was 9.5 on 05/11/18. Past Med Surg Social Fam HX - Past Medical History Medical history: arthritis, cancer, diabetes, hyperlipidemia, hypertension Additional medical history: colon cancer Psychiatric history: no psych history - Past Surgical History Surgical History: no surgical history - Social History Smoking Status: Former smoker Smokeless Tobacco Status: No Alcohol use: none Drug use: none - Family History Father Name: Roland Mcfarland Age: 79 Family Member Ethnicity: Non- Living Status: Age at : 79 Cause of : OK Hx Family Cardiac Disorders: Yes Internal Medicine - H&P: Meds Aspirin 81 mg PO DAILY 01/24/18 [History] Cholecalciferol (D-3) [Vitamin D] 1,000 mg PO DAILY 01/24/18 [History] Flaxseed Oil [[place]-3 Flaxseed Oil] 1,000 mg PO DAILY 01/24/18 [History] Simvastatin [Zocor] 40 mg PO HS 01/24/18 [History] SitaGLIPtin [Januvia] 25 mg PO DAILY 01/24/18 [History] Lidocaine/Prilocaine [Emla] 1 appl TP AD #30 gm 01/30/18 [Rx] Ondansetron HCl [Zofran] 4 mg PO Q4H PRN #30 tablet 01/30/18 [Rx] Prochlorperazine Maleate [Compazine] 10 mg PO Q6H PRN #30 tablet 01/30/18 [Rx] Tamsulosin [Flomax] 0.4 mg PO DAILY #30 cap.er.24h 02/12/18 [Rx] Hydrocortisone [Anusol-Hc] 30 gm RC BID #14 cream..g. 04/17/18 [Rx] Polyethylene Glycol 3350 [MiraLAX] 17 gm PO DAILY #30 powd.pack 04/17/18 [Rx] Benzocaine [Boil Relief] 1 appl TP Q6H PRN #28 oint...g. 04/21/18 [Rx] Magic Mouthwash [Magic Mouthwash BLM] 10 ml PO QID PRN #240 ml 05/11/18 [Rx] Potassium Chloride 20 meq PO BID #60 tab.er.prt 05/11/18 [Rx] Loperamide [Imodium] 2 mg PO DAILY PRN 06/02/18 [History] 3 Allergy/AdvReac Type Severity Reaction Status Date / Time No Known Drug Allergies Allergy Unknown None Verified 05/11/18 09:38 - Constitutional Vitals: Temp Pulse Resp BP Pulse Ox 97.6 F 81 17 115/66 97 06/01/18 23:21 06/01/18 23:21 06/01/18 23:21 06/01/18 23:21 06/01/18 23:21 General appearance: Present: A&O X 3, no acute distress, answers questions appropriately Internal Med - H&P Results - Labs CBC & Chem 7: 06/01/18 17:24 06/01/18 17:24 Labs: Short CBC 06/01/18 Range/Units 17:24 WBC 2.8 L (4.3-11.1) K/mcL Hgb 8.8 L (12.9-16.9) g/dL Hct 26.3 L (37.5-50.1) % Plt Count 99 L (140-400) K/mcL Neutrophils # 1.1 L (1.6-8.9) K/mcL BMP 06/01/18 17:24 Sodium 135 L Potassium 4.2 Chloride 106 Carbon Dioxide 21 L BUN 31 H Creatinine 1.60 H Glucose 87 Calcium 8.0 L - VTE Documentation of Mechanical Device: Intermittent pneumatic compression device - Assessment and plan (1) Debility Current Visit: Yes Status: Acute (2) Carcinoma of cecum Current Visit: No Status: Chronic (3) Anemia Current Visit: No Status: Chronic Qualifiers: Anemia type: iron deficiency Iron deficiency anemia type: chronic blood loss Qualified Code(s): D50.0 - Iron deficiency anemia secondary to blood loss (chronic) (4) Type 2 diabetes mellitus Current Visit: Yes Status: Acute Qualifiers: Diabetes mellitus fdc insulin use: without technician terminal and repeater use Diabetes mellitus complication status: without complication Qualified Code(s): E11.9 - Type 2 diabetes mellitus without complications - Time Spent With Patient Total time spent is greater than 50% in coordination of care (as documented) at patient's floor/unit and/or counseling patient: Greater than 35 minutes (40 minutes)
[2018-06-02] MEDS: 0.9 % Sodium Chloride 1,000 ML IVC SCH ×2 (04:47→17:14)
[2018-06-02] MEDS: *HR* Enoxaparin 40 MG/0.4 ML SYRINGE SQ SCH (06:03)
[2018-06-02] MEDS ORDERED: Megestrol Acetate 400 MG/10 ML UDC PO SCH (09:00)
--- NOTE | 2018-06-02 12:40 | Oncology Inp Consult Note ---
<HdezJulieta Lukasz - Last Filed: 06/02/18 16:48> Date of Encounter: 06/02/18 Time of Encounter: 11:30 Assessment and Plan (1) Acute kidney injury Status: Acute Assessment and plan: LIZ superimposed on CKD Likely secondary to dehydration Continue IVF (2) Metastatic colon cancer to liver Status: Chronic Assessment and plan: Metastatic colon cancer, PT3, PN2b, M1 stage IV Microsatellite stable. K-jose antonio mutation positive, BRAF negative Current treatment regimen includes FOLFIRI without 5-FU bolus, Q3 week cycle S/P Cycle #4 on 05/11/2018 Admitted with weakness, dehydration, diarrhea He appears to be experiencing severe diarrhea secondary to irinotecan treatment , which has in return caused his profound weakness/dehydration. He does not have severe neutropenia, no h/o fevers/chills, denies abdominal pain , no sign of acute abdomen Plan: Will discuss treatment change considerations with Dr. Garcia, treating oncologist. At this time, recommend continued supportive treatment and symptom management, dietary consult/PT. 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 Qualifiers: Anemia type: iron deficiency Iron deficiency anemia type: chronic blood loss Qualified Code(s): D50.0 - Iron deficiency anemia secondary to blood loss (chronic) (4) Protein-calorie malnutrition, moderate Status: Chronic Assessment and plan: Consult Package Delivery Room Service Runner for supplementation recommendations Change Megace to Marinol Ordered magic mouthwash for mucositis PT consult - Data of Consult Patient: known to practice within the last 3 years Consult date: 06/02/18 Requesting Physician: Mati Vo Primary Care Provider: Reggie Reynoso MD - Consult Narrative Reason for consult: Metastatic Colon Adenocarcinoma History of present illness: Mr. Mcfarland is a 77 year old male with metastatic stage IV colon adenocarcinoma diagnosed on 01/26/18. S/P right hemicolectomy for subacute obstruction on 01/31/18 with + margins, 12/10 lymph nodes involved. Current treatment includes FOLFIRI without 5-FU bolus, initiated on 03/09/18, he has experienced some treatment delays since this time secondary to neutropenia, most recently received cycle # 4 on 05/11/18, at this time his schedule was changed to Q3 week dosing. He was planned to received cycle #5 yesterday. He has been admitted with weakness, dehydration and failure to thrive type of picture. Mr. Mcfarland states that he had a few good days following his last treatment on 05/11, but this was followed by profound weakness, he has not regained strength or an appetite since then. He has been in bed for about 2 weeks. He has developed a sacral pressure ulcer. He has had very little intake, he has been drinking ok, but with little to no food intake and mainly eating soft foods/full liquids, if anything. Reports dysgeusia secondary to chemotherapy. He has experienced a significant amount of weight loss. He fell in the middle of the night about 2 weeks ago, states he does not recall the fall , "blacked out", fell on his right hip, right hip pain has since resolved and he is able to ambulate without pain. He feels lightheaded with positional changes, states he chronically feels this way but it has recently worsened. He denies chest pain, SOB, abdominal pain, nausea, vomiting, constipation, headache, focal weakness, visual changes, fevers, chills, any s/s bleeding or calf pain. He reports issues with diarrhea since starting chemo, he had diarrhea yesterday for which he took his lomotil for, no BM since. Past Med Surg Social Fam HX - Past Medical History Medical history: arthritis, cancer, diabetes, hyperlipidemia, hypertension Additional medical history: colon cancer Psychiatric history: no psych history - Past Surgical History Surgical History: no surgical history - Social History Smoking Status: Former smoker Smokeless Tobacco Status: No Alcohol use: none Drug use: none - Family History Father Name: Roland Mcfarland Age: 79 Family Member Ethnicity: Non- Living Status: Age at : 79 Cause of : [place] Hx Family Cardiac Disorders: Yes Medications and Allergies Aspirin 81 mg PO DAILY 01/24/18 [History] Cholecalciferol (D-3) [Vitamin D] 1,000 mg PO DAILY 01/24/18 [History] Flaxseed Oil [[place]-3 Flaxseed Oil] 1,000 mg PO DAILY 01/24/18 [History] Simvastatin [Zocor] 40 mg PO HS 01/24/18 [History] SitaGLIPtin [Januvia] 25 mg PO DAILY 01/24/18 [History] Lidocaine/Prilocaine [Emla] 1 appl TP AD #30 gm 01/30/18 [Rx] Ondansetron HCl [Zofran] 4 mg PO Q4H PRN #30 tablet 01/30/18 [Rx] Prochlorperazine Maleate [Compazine] 10 mg PO Q6H PRN #30 tablet 01/30/18 [Rx] Tamsulosin [Flomax] 0.4 mg PO DAILY #30 cap.er.24h 02/12/18 [Rx] Hydrocortisone [Anusol-Hc] 30 gm RC BID #14 cream..g. 04/17/18 [Rx] Polyethylene Glycol 3350 [MiraLAX] 17 gm PO DAILY #30 powd.pack 04/17/18 [Rx] Benzocaine [Boil Relief] 1 appl TP Q6H PRN #28 oint...g. 04/21/18 [Rx] Magic Mouthwash [Magic Mouthwash BLM] 10 ml PO QID PRN #240 ml 05/11/18 [Rx] Potassium Chloride 20 meq PO BID #60 tab.er.prt 05/11/18 [Rx] Loperamide [Imodium] 2 mg PO DAILY PRN 06/02/18 [History] 3 Allergy/AdvReac Type Severity Reaction Status Date / Time No Known Drug Allergies Allergy Unknown None Verified 05/11/18 09:38 Constitutional: Present: as per HPI, anorexia, fatigue, weakness, weight loss. Absent: chills, fever(s), malaise, night sweats Eyes: Absent: change in vision Nose, mouth and throat: Present: as per HPI, dizziness, other. Absent: dysphagia, odynophagia Additional comments: dysgeusia Cardiovascular: Absent: chest pain, palpitations Respiratory: Absent: cough, dyspnea Gastrointestinal: Present: diarrhea. Absent: abdominal pain, dysphagia, hematemesis, hematochezia, melena, nausea, vomiting Additional comments: denies dysuria Musculoskeletal: Present: muscle weakness Integumentary: Present: skin ulcer. Absent: rash Neurological: Present: dizziness. Absent: focal weakness Additional comments: fall at home about 2 weeks ago Psychiatric: Present: as per HPI Hematologic/Lymphatic: Present: as per HPI Oncology - Exam - Constitutional Vitals: Temp Pulse Resp BP Pulse Ox 98.0 F 76 19 97/57 97 06/02/18 11:10 06/02/18 11:10 06/02/18 11:10 06/02/18 11:10 06/02/18 11:10 General appearance: cooperative, no acute distress, no febrile - Head Head exam: Present: atraumatic - ENT ENT exam: Present: mucous membranes dry Additional comments: mucositis - Respiratory Respiratory exam: Present: CTAB. Absent: respiratory distress - Cardiovascular Cardiovascular exam: Present: RRR, +S1, +S2 - GI/Abdominal GI/Abdominal exam: Present: normal bowel sounds, soft. Absent: guarding, rebound, tenderness - Extremities Exam Extremities exam: Present: normal inspection. Absent: calf tenderness - Neurological Exam Neurological exam: Present: alert, oriented X3, no focal deficits, strengths equal and symetr throughout - Psychiatric Psychiatric exam: Present: normal affect, normal mood - Skin Skin exam: Present: dry, normal color, warm Additional comments: sacral pressure ulcer-not observed at today's assessment Oncology - Results Labs: 3 06/02/18 06/02/18 06/01/18 11:09 07:21 20:22 WBC RBC Hgb Hct MCV MCH MCHC RDW Plt Count MPV Immature Gran % Seg Neutrophils % Lymphocytes % Monocytes % Eosinophils % Basophils % Neutrophils # Lymphocytes # Monocytes # Eosinophils # Basophils # Reactive Lymphocytes Platelet Estimate Immature Plt Fraction Sodium Potassium Chloride Carbon Dioxide BUN Creatinine Est GFR ( Amer) Est GFR (Non-Af Amer) BUN/Creatinine Ratio Glucose POC Glucose 99 80 95 Calculated Osmolality Calcium Magnesium 3 06/01/18 06/01/18 06/01/18 17:24 17:24 16:10 WBC 2.8 L RBC 3.04 L Hgb 8.8 L Hct 26.3 L MCV 86.5 MCH 28.9 MCHC 33.5 RDW 18.4 H Plt Count 99 L MPV 10.0 Immature Gran % 1.4 Seg Neutrophils % 39.9 Lymphocytes % 43.2 Monocytes % 14.0 Eosinophils % 0.4 Basophils % 1.1 Neutrophils # 1.1 L Lymphocytes # 1.2 Monocytes # 0.4 Eosinophils # 0.0 Basophils # 0.0 Reactive Lymphocytes Present A Platelet Estimate Marked Decrease L Immature Plt Fraction 4.3 Sodium 135 L Potassium 4.2 Chloride 106 Carbon Dioxide 21 L BUN 31 H Creatinine 1.60 H Est GFR ( Amer) 51 L Est GFR (Non-Af Amer) 42 L BUN/Creatinine Ratio 19 Glucose 87 POC Glucose 90 Calculated Osmolality 286 Calcium 8.0 L Magnesium 1.7 Consult Discharge Plan - Plan Referrals: Reggie Reynoso MD [Primary Care Provider] - <Carlos Castillo S - Last Filed: 06/03/18 08:00> Date of Encounter: 06/02/18 - Data of Consult Requesting Physician: Mati Vo Primary Care Provider: Reggie Reynoso MD - Consult Narrative History of present illness: Mr. Mcfarland is a 77 year old male Oncology - Exam - Constitutional Vitals: Temp Pulse Resp BP Pulse Ox 97.6 F 69 18 110/63 100 06/03/18 07:19 06/03/18 07:19 06/03/18 07:19 06/03/18 07:19 06/03/18 07:19 Oncology - Results Labs: 3 06/03/18 06/03/18 06/02/18 04:44 04:44 22:48 WBC 9.4 D RBC 2.65 L Hgb 7.5 L Hct 22.7 L MCV 85.7 MCH 28.3 MCHC 33.0 RDW 18.6 H Plt Count 106 L MPV 10.4 Immature Gran % 0.2 Seg Neutrophils % 14.2 Lymphocytes % 63.4 Monocytes % 21.1 Eosinophils % 0.2 Basophils % 0.9 Neutrophils # 1.3 L Lymphocytes # 6.0 H Monocytes # 2.0 H Eosinophils # 0.0 Basophils # 0.1 Reactive Lymphocytes Present A Platelet Estimate Decreased L Immature Plt Fraction Sodium 139 Potassium 3.3 L Chloride 113 H Carbon Dioxide 20 L BUN 28 H Creatinine 1.43 H Est GFR ( Amer) 58 L Est GFR (Non-Af Amer) 48 L BUN/Creatinine Ratio 20 Glucose 121 H POC Glucose Calculated Osmolality 295 Calcium 7.7 L Magnesium Urine Color Dark Yellow Urine Clarity Cloudy A Urine pH 5.5 Ur Specific [place] 1.017 Urine Protein 30 H Urine Glucose (UA) Normal Urine Ketones Trace H Urine Blood Negative Urine Nitrite Negative Urine Bilirubin Small H Urine Urobilinogen Normal Ur Leukocyte Esterase Small H Urine Microscopic RBC 0-3 Urine Microscopic WBC 5-15 H Ur Squamous Epith Cells Moderate H Urine Bacteria Few Hyaline Casts Few Ur Culture Indicated? YES A 3 06/02/18 06/02/18 06/02/18 19:36 15:34 11:09 WBC RBC Hgb Hct MCV MCH MCHC RDW Plt Count MPV Immature Gran % Seg Neutrophils % Lymphocytes % Monocytes % Eosinophils % Basophils % Neutrophils # Lymphocytes # Monocytes # Eosinophils # Basophils # Reactive Lymphocytes Platelet Estimate Immature Plt Fraction Sodium Potassium Chloride Carbon Dioxide BUN Creatinine Est GFR ( Amer) Est GFR (Non-Af Amer) BUN/Creatinine Ratio Glucose POC Glucose 143 H 119 H 99 Calculated Osmolality Calcium Magnesium Urine Color Urine Clarity Urine pH Ur Specific [place] Urine Protein Urine Glucose (UA) Urine Ketones Urine Blood Urine Nitrite Urine Bilirubin Urine Urobilinogen Ur Leukocyte Esterase Urine Microscopic RBC Urine Microscopic WBC Ur Squamous Epith Cells Urine Bacteria Hyaline Casts Ur Culture Indicated? 3 06/02/18 06/01/18 06/01/18 07:21 20:22 17:24 WBC RBC Hgb Hct MCV MCH MCHC RDW Plt Count MPV Immature Gran % Seg Neutrophils % Lymphocytes % Monocytes % Eosinophils % Basophils % Neutrophils # Lymphocytes # Monocytes # Eosinophils # Basophils # Reactive Lymphocytes Platelet Estimate Immature Plt Fraction Sodium 135 L Potassium 4.2 Chloride 106 Carbon Dioxide 21 L BUN 31 H Creatinine 1.60 H Est GFR ( Amer) 51 L Est GFR (Non-Af Amer) 42 L BUN/Creatinine Ratio 19 Glucose 87 POC Glucose 80 95 Calculated Osmolality 286 Calcium 8.0 L Magnesium 1.7 Urine Color Urine Clarity Urine pH Ur Specific [place] Urine Protein Urine Glucose (UA) Urine Ketones Urine Blood Urine Nitrite Urine Bilirubin Urine Urobilinogen Ur Leukocyte Esterase Urine Microscopic RBC Urine Microscopic WBC Ur Squamous Epith Cells Urine Bacteria Hyaline Casts Ur Culture Indicated? 3 06/01/18 06/01/18 17:24 16:10 WBC 2.8 L RBC 3.04 L Hgb 8.8 L Hct 26.3 L MCV 86.5 MCH 28.9 MCHC 33.5 RDW 18.4 H Plt Count 99 L MPV 10.0 Immature Gran % 1.4 Seg Neutrophils % 39.9 Lymphocytes % 43.2 Monocytes % 14.0 Eosinophils % 0.4 Basophils % 1.1 Neutrophils # 1.1 L Lymphocytes # 1.2 Monocytes # 0.4 Eosinophils # 0.0 Basophils # 0.0 Reactive Lymphocytes Present A Platelet Estimate Marked Decrease L Immature Plt Fraction 4.3 Sodium Potassium Chloride Carbon Dioxide BUN Creatinine Est GFR ( Amer) Est GFR (Non-Af Amer) BUN/Creatinine Ratio Glucose POC Glucose 90 Calculated Osmolality Calcium Magnesium Urine Color Urine Clarity Urine pH Ur Specific [place] Urine Protein Urine Glucose (UA) Urine Ketones Urine Blood Urine Nitrite Urine Bilirubin Urine Urobilinogen Ur Leukocyte Esterase Urine Microscopic RBC Urine Microscopic WBC Ur Squamous Epith Cells Urine Bacteria Hyaline Casts Ur Culture Indicated? - Attending Attestation I have seen and examined the patient and agrees with the assessment and plan put forth by the advanced nurse practitioner. This gentleman has metastatic colon cancer. He is having difficulty tolerating his current chemotherapy regimen with full fear he. His most recent course has been uncomplicated by neutropenia as well as diarrhea causing significant dehydration and a recent fall. He has responded nicely to supportive measures with hydration. His diarrhea has resolved. I recommended holding chemotherapy for next 1-2 weeks to allow recovery. I think it would be quintero to consider transitioning to a dose attenuated FOLFOX chemotherapy. I would use Neulasta support. I discussed this with his primary oncologist, Dr. Garcia, and he agrees. No need for antibiotic support. We will continue to follow continue supportive measures.
--- NOTE | 2018-06-02 15:56 | Internal Med Progress Note ---
Hospitalist Progress Note - Encounter Date of Encounter: 06/02/18 Time of Encounter: 15:54 - Subjective Interval History: Patient seen and examined at bedside with family. Patient had no overnight events. Patient states that he feels better today than he has in many weeks. Patient states that his appetite is improved today for the first time in a while. Patient denies any chest pain, shortness of breath, nausea, vomiting, diarrhea. - Exam Vitals: Temp Pulse Resp BP Pulse Ox 98.2 F 76 17 116/69 98 06/02/18 15:36 06/02/18 15:36 06/02/18 15:36 06/02/18 15:36 06/02/18 15:36 Exam: Constitutional: No acute distress, Alert Psych: AAO x 3 HEENT: NCAT, EOMI Cardio: regular rate and rhythm, +s1s2, no murmurs/rubs/gallops, no JVD Resp: clear to ascultation bilaterally, no wheezes/rales/ronchi Abd: soft, non tender/non distended, positive bowel sounds, no gaurding/reboud/ ridgitity Extremities: no clubbing/cyanosis/edema appreciated Neuro: no focal deficits appreciated - Assessment and Plan (1) Acute kidney injury superimposed on chronic kidney disease Current Visit: Yes Status: Acute Assessment and Plan: -Patient has chronic kidney disease stage III with acute kidney injury -Patient serum creatinine baseline appears to be between 1.1 and 1.5 -patient presented with serum creatinine 1.60 with decreased by mouth intake and dehydration -She has been started on IV fluids and feels much better -We will resume IV fluids at 75 mL an hour and recheck BMP in a.m. -Avoid nephrotoxic medications (2) Fatigue Current Visit: Yes Status: Acute Assessment and Plan: Likely secondary to his metastatic colon cancer with anemia chronic disease -Improved with IV hydration -continue IV fluid -Also with recent fall and requesting home physical therapy -Continue physical therapy while in hospital -discuss with case management regarding setting up home health care (3) Metastatic colon cancer to liver Current Visit: No Status: Chronic Assessment and Plan: Metastatic colon cancer, PT3, PN2b, M1 stage IV Microsatellite stable. K-jose antonio mutation positive, BRAF negative Current treatment regimen includes FOLFIRI without 5-FU bolus, Q3 week cycle S/P Cycle #4 on 05/11/2018 -Oncology following; appreciate recommendations (4) Anemia of chronic disease Current Visit: No Status: Chronic Assessment and Plan: Pancytopenia secondary to chemotherapy along with anemia of chronic disease -hemoglobin stable at 8.8 -We will monitor CBC in a.m. DVT Prophylaxis: Lovenox - Time Spent with Patient Total time spent is greater than 50% in coordination of care (as documented) at patient's floor/unit and/or counseling patient: less than 15 minutes Plan of Care Discussed with: patient Internal Medicine: Result - Labs CBC & Chem 7: 06/01/18 17:24 06/01/18 17:24 Labs: Short CBC 06/01/18 Range/Units 17:24 WBC 2.8 L (4.3-11.1) K/mcL Hgb 8.8 L (12.9-16.9) g/dL Hct 26.3 L (37.5-50.1) % Plt Count 99 L (140-400) K/mcL Neutrophils # 1.1 L (1.6-8.9) K/mcL BMP 06/01/18 17:24 Sodium 135 L Potassium 4.2 Chloride 106 Carbon Dioxide 21 L BUN 31 H Creatinine 1.60 H Glucose 87 Calcium 8.0 L - VTE Documentation of Mechanical Device: Intermittent pneumatic compression device Consult Discharge Plan - Plan Referrals: Reggie Reynoso MD [Primary Care Provider] -
[2018-06-02] MEDS: Magic Mouthwash 10 ML UD Cup PO SCH (17:14)
[2018-06-02 22:55] LABS: Bilirubin,Urine Small (Negative); Blood,Urine Negative (Negative); Clarity,Urine Cloudy (Clear); Color,Urine Dark Yellow (Yellow); Glucose,Urine (UA) Normal (Normal); Ketones,Urine Trace mg/dL (Negative); Leukocyte Esterase,Urine Small (Negative); Nitrite,Urine Negative (Negative); PH,Urine 5.5 pH Units (5.0-8.0); Protein,Urine 30 mg/dL (Neg-Trace); Specific Gravity,Urine 1.017 (1.010-1.025); Urobilinogen,Urine Normal (Normal)
[2018-06-02 22:56] LABS: Hyaline Casts,Urine Few per lpf (None-Few); RBC,Urine 0-3 per hpf (0-3); Squamous Epithelial Cell,Urine Moderate per lpf (None-Few)
[2018-06-03 00:10] LABS: Bacteria,Urine Few per hpf (None-Few)
[2018-06-03 05:04] LABS: Basophils # 0.1 K/mcL (0.0-0.2); Basophils % 0.9 %; Eosinophils % 0.2 %; Hematocrit 22.7 % (37.5-50.1); Hemoglobin 7.5 g/dL (12.9-16.9); Immature Granulocytes % 0.2 % (0-4); Lymphocytes % 63.4 %; Mean Corpuscular Hemoglobin 28.3 pg (28.0-33.3); Mean Corpuscular Volume 85.7 fL (83.0-100.0); Mean Platelet Volume 10.4 fL (9.4-12.4); Monocytes % 21.1 %; Neutrophils # 1.3 K/mcL (1.6-8.9); Platelet Count 106 K/mcL (140-400); Red Blood Count 2.65 M/mcL (4.19-5.50); Red Cell Distribution Width 18.6 % (11.5-14.5); Segmented Neutrophils % 14.2 %
[2018-06-03 05:23] LABS: Calcium 7.7 mg/dL (8.6-10.3); Potassium 3.3 mEq/L (3.5-5.1)
[2018-06-03 05:39] LABS: Platelet Estimate Decreased (Normal); Reactive Lymphocytes Present (Not Present)
[2018-06-03] MEDS: *HR* Enoxaparin 40 MG/0.4 ML SYRINGE SQ SCH (06:19)
[2018-06-03] MEDS: 0.9 % Sodium Chloride 1,000 ML IVC SCH ×2 (06:20→20:28)
[2018-06-03] MEDS: Magic Mouthwash 10 ML UD Cup PO SCH ×3 (07:57→16:33)
--- NOTE | 2018-06-03 08:56 | Internal Med Progress Note ---
Hospitalist Progress Note - Encounter Date of Encounter: 06/03/18 Time of Encounter: 08:54 - Subjective Interval History: Patient seen and examined at bedside with family. Patient had no overnight events. He states he continues to feel improved and has more energy than prior to admission and has good appetite. Patient and concerned about the patient's ability to transfer to the car and with activities at home. PT to see pt again this am. She denies any chest pain, shortness breath, nausea, vomiting , diarrhea. Patient had bowel movement this morning. Patient missed occasional lightheadedness that has been going on for one year and is unchanged. - Exam Vitals: Temp Pulse Resp BP Pulse Ox 97.6 F 69 18 110/63 100 06/03/18 07:19 06/03/18 07:19 06/03/18 07:19 06/03/18 07:19 06/03/18 07:19 Exam: Constitutional: No acute distress, Alert Psych: AAO x 3 HEENT: NCAT, EOMI Cardio: regular rate and rhythm, +s1s2, no murmurs/rubs/gallops Resp: clear to ascultation bilaterally, no wheezes/rales/ronchi Abd: soft, non tender/non distended, positive bowel sounds Extremities: no clubbing/cyanosis/edema appreciated - Assessment and Plan (1) Acute kidney injury superimposed on chronic kidney disease Current Visit: Yes Status: Acute Assessment and Plan: -Patient has chronic kidney disease stage III with acute kidney injury -Patient serum creatinine baseline appears to be between 1.1 and 1.5 -patient presented with serum creatinine 1.60 with decreased by mouth intake and dehydration; creatinine 1.43 this am -continue ivf for now and dc later today or in am -We will resume IV fluids at 75 mL an hour and recheck BMP in a.m. -Avoid nephrotoxic medications (2) Fatigue Current Visit: Yes Status: Acute Assessment and Plan: Likely secondary to his metastatic colon cancer with anemia chronic disease -Improved with IV hydration -continue IV fluid -Also with recent fall and requesting home physical therapy; may need ecf; will review pt notes this am -Continue physical therapy while in hospital -discuss with case management regarding setting up home health care (3) Metastatic colon cancer to liver Current Visit: No Status: Chronic Assessment and Plan: Metastatic colon cancer, PT3, PN2b, M1 stage IV Microsatellite stable. K-jose antonio mutation positive, BRAF negative Current treatment regimen includes FOLFIRI without 5-FU bolus, Q3 week cycle S/P Cycle #4 on 05/11/2018 -Oncology following; appreciate recommendations (4) Anemia Current Visit: Yes Status: Chronic Assessment and Plan: Pancytopenia secondary to chemotherapy along with anemia of chronic disease -hemoglobin stable at 7.5 this am likely closer to baseline as pt was dehydrated on admission with hgb of 8.8 -asymptomatic (5) Debility Current Visit: Yes Status: Acute Assessment and Plan: Patient with decreased functional status and deconditioning likely from metastatic cancer and dehydration -Continue physical therapy -We will likely need home health care versus ECF placement for short term rehabilitation (6) Type 2 diabetes mellitus Current Visit: Yes Status: Acute Assessment and Plan: Current regimen, glucose controlled - Summary of Assessment and Plan Summary of Assessment and Plan: Await physical therapy this morning and discuss case with case management social work; likely discharge later this afternoon or in a.m. with home health care or ECF per family preference due to deconditioning - Time Spent with Patient Total time spent is greater than 50% in coordination of care (as documented) at patient's floor/unit and/or counseling patient: less than 15 minutes Plan of Care Discussed with: patient Internal Medicine: Result - Labs CBC & Chem 7: 06/03/18 04:44 06/03/18 04:44 Labs: Short CBC 06/03/18 Range/Units 04:44 WBC 9.4 D (4.3-11.1) K/mcL Hgb 7.5 L (12.9-16.9) g/dL Hct 22.7 L (37.5-50.1) % Plt Count 106 L (140-400) K/mcL Neutrophils # 1.3 L (1.6-8.9) K/mcL BMP 06/03/18 04:44 Sodium 139 Potassium 3.3 L Chloride 113 H Carbon Dioxide 20 L BUN 28 H Creatinine 1.43 H Glucose 121 H Calcium 7.7 L Urine 06/02/18 Range/Units 22:48 Urine Color Dark Yellow (Yellow) Urine Clarity Cloudy A (Clear) Urine pH 5.5 (5.0-8.0) pH Units Ur Specific [place] 1.017 (1.010-1.025) Urine Protein 30 H (Neg-Trace) mg/dL Urine Glucose (UA) Normal (Normal) mg/dL - VTE Documentation of Mechanical Device: Intermittent pneumatic compression device Consult Discharge Plan - Plan Referrals: Reggie Reynoso MD [Primary Care Provider] - (4) Anemia Qualifiers: Anemia type: iron deficiency Iron deficiency anemia type: chronic blood loss Qualified Code(s): D50.0 - Iron deficiency anemia secondary to blood loss ( chronic) (6) Type 2 diabetes mellitus Qualifiers: Diabetes mellitus intermediate teacher insulin use: without intermediate teacher use Diabetes mellitus complication status: without complication Qualified Code(s): E11.9 - Type 2 diabetes mellitus without complications
[2018-06-03] MEDS: Diphenoxylate/Atropine 1 TAB TABLET PO PRN ×2 (12:34→16:33)
[2018-06-03] MEDS: Loratadine 10 MG TABLET PO SCH (12:34)
[2018-06-03] MEDS: Famotidine 20 MG TABLET PO SCH ×2 (12:34→21:37)
--- NOTE | 2018-06-03 12:35 | Oncology Inp Progress Note ---
<Julieta Hdez L - Last Filed: 06/03/18 16:59> Date of Encounter: 06/03/18 Time of Encounter: 11:00 (1) Acute kidney injury Current Visit: No Status: Acute Assessment and plan: LIZ superimposed on CKD-Improving with IVF Likely secondary to dehydration Avoid nephrotoxins (2) Metastatic colon cancer to liver Current Visit: No Status: Chronic Assessment and plan: Metastatic colon cancer, PT3, PN2b, M1 stage IV Microsatellite stable. K-jose antonio mutation positive, BRAF negative Current treatment regimen includes FOLFIRI without 5-FU bolus, Q3 week cycle S/P Cycle #4 on 05/11/2018 Admitted with weakness, dehydration, diarrhea He appears to be experiencing severe diarrhea secondary to irinotecan treatment , which has in return caused his profound weakness/dehydration. He does not have severe neutropenia, no h/o fevers/chills, denies abdominal pain , no sign of acute abdomen Plan: Will discuss treatment change considerations with Dr. Garcia, treating oncologist. Consider transitioning to dose attenuated FOLFOX with Neulasta support At this time, recommend continued supportive treatment and symptom management, dietary consult/PT. 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 Mcfarland was seen and examined at bedside. He denies pain, nausea, vomiting, chest pain, SOB, headache, dizziness, fever or chills. He has been working with physical therapy and has been up and about in his room today. He has had diarrhea x3 this morning. He was able to eat most of his breakfast. Both the patient and his recognize an improvement in his energy level and symptoms related to dehydration since his admission. - Constitutional Vitals: Vital Signs Temp Pulse Resp BP Pulse Ox 06/03/18 11:05 97.7 F 85 22 92/58 99 06/03/18 07:19 97.6 F 69 18 110/63 100 06/03/18 04:07 98.3 F 69 16 118/67 98 06/03/18 00:23 97.4 F L 85 18 116/67 98 06/02/18 19:40 97.9 F 87 17 112/70 99 06/02/18 15:36 98.2 F 76 17 116/69 98 Intake and Output 06/02/18 06/03/18 06/03/18 23:59 07:59 15:59 Intake Total 480 / 480 1000 / 1000 Output Total 200 / 200 Balance 280 / 280 1000 / 1000 Intake: IV Fluids 1000 / 1000 0.9 % Sodium Chloride 1,000 ML 1000 / 1000 @ 75 mls/hr IVC .[id number] [facility] Rx #:[id number] Oral 480 / 480 Output: Urine 200 / 200 Other: Meal Dinner Breakfast Percent of Meal Consumed 75% 25% Stool Size Copious Small Stool Consistency liquid loose soft Stool Characteristics Pasty Stool Color Bret Colored Brown # Voids 1 # Bowel Movements 1 1 Weight 87.9 kg Blood Glucose* 143 145 Patient Weight 06/03/18 23:59 Weight 87.9 kg General appearance: cooperative, no acute distress, no febrile - Head Head exam: Present: atraumatic - ENT ENT exam: Present: mucous membranes moist - Respiratory Respiratory exam: Present: CTAB. Absent: respiratory distress - Cardiovascular Cardiovascular exam: Present: RRR, +S1, +S2 - GI/Abdominal GI/Abdominal exam: Present: normal bowel sounds, soft. Absent: guarding, rebound, tenderness - Extremities Exam Extremities exam: Absent: calf tenderness - Neurological Exam Neurological exam: Present: alert, oriented X3, no focal deficits, strengths equal and symetr throughout - Psychiatric Psychiatric exam: Present: normal affect, normal mood - Skin Skin exam: Present: dry, normal color, warm Oncology: Obj Data - Labs CBC & Chem 7: 06/03/18 04:44 06/03/18 04:44 Consult Discharge Plan - Plan Referrals: Reggie Reynoso MD [Primary Care Provider] - <Anna,Carlos S - Last Filed: 06/03/18 22:32> Date of Encounter: 06/03/18 - Constitutional Vitals: Vital Signs Temp Pulse Resp BP Pulse Ox 06/03/18 22:14 98.1 F 82 20 124/71 98 06/03/18 18:37 97.8 F 81 16 123/76 99 06/03/18 16:20 97.6 F 76 16 121/74 100 06/03/18 12:38 97.8 F 107 14 98/67 98 06/03/18 11:05 97.7 F 85 22 92/58 99 06/03/18 07:19 97.6 F 69 18 110/63 100 06/03/18 04:07 98.3 F 69 16 118/67 98 06/03/18 00:23 97.4 F L 85 18 116/67 98 Intake and Output 06/03/18 06/03/18 06/04/18 08:59 16:59 00:59 Intake Total 1000 / 1000 360 / 360 1050 / 1050 Output Total 100 / 100 0 / 0 Balance 1000 / 1000 260 / 260 1050 / 1050 Intake: IV Fluids 1000 / 1000 1000 / 1000 0.9 % Sodium Chloride 1,000 ML 1000 / 1000 1000 / 1000 @ 75 mls/hr IVC .[id number] [facility] Rx #:[id number] Oral 360 / 360 50 / 50 Output: Urine 100 / 100 0 / 0 Other: Meal Lunch Dinner Percent of Meal Consumed 50% 25% Stool Size Small Stool Consistency loose Stool Characteristics Pasty Stool Color Brown # Voids 1 # Bowel Movements 1 Blood Glucose* 100 151 149 Oncology: Obj Data - Labs CBC & Chem 7: 06/03/18 04:44 06/03/18 04:44 Labs: Laboratory Results - last 24 hr 06/02/18 06/03/18 06/03/18 22:48 04:44 04:44 WBC 9.4 D RBC 2.65 L Hgb 7.5 L Hct 22.7 L MCV 85.7 MCH 28.3 MCHC 33.0 RDW 18.6 H Plt Count 106 L MPV 10.4 Immature Gran % 0.2 Seg Neutrophils % 14.2 Lymphocytes % 63.4 Monocytes % 21.1 Eosinophils % 0.2 Basophils % 0.9 Neutrophils # 1.3 L Lymphocytes # 6.0 H Monocytes # 2.0 H Eosinophils # 0.0 Basophils # 0.1 Reactive Lymphocytes Present A Platelet Estimate Decreased L Sodium 139 Potassium 3.3 L Chloride 113 H Carbon Dioxide 20 L BUN 28 H Creatinine 1.43 H Est GFR ( Amer) 58 L Est GFR (Non-Af Amer) 48 L BUN/Creatinine Ratio 20 Glucose 121 H POC Glucose Calculated Osmolality 295 Calcium 7.7 L Urine Color Dark Yellow Urine Clarity Cloudy A Urine pH 5.5 Ur Specific Winston 1.017 Urine Protein 30 H Urine Glucose (UA) Normal Urine Ketones Trace H Urine Blood Negative Urine Nitrite Negative Urine Bilirubin Small H Urine Urobilinogen Normal Ur Leukocyte Esterase Small H Urine Microscopic RBC 0-3 Urine Microscopic WBC 5-15 H Ur Squamous Epith Cells Moderate H Urine Bacteria Few Hyaline Casts Few Ur Culture Indicated? YES A Stl C. cayetanensis PCR Stool Rotavirus A PCR Stl Adenov F / PCR Stool Astrovirus (PCR) Stool Campylobacter PCR Stl C. diff Tox A/B PCR Stool Cryptosporidium PCR Stl Sh Tox Pr E STEC PCR Stool E coli O157 PCR Stl Enterotoxigenic E PCR Stool EPEC (PCR) Stool EAEC (PCR) Stl E. histolytica PCR Stool Giardia Lamblia PCR Stool Salmonella PCR Stool Sapovirus (PCR) Stl P. shigelloides PCR Stl Shigella/EIEC PCR St Y.enterocolitica PCR Stool Vibrio (PCR) Stl Vibrio cholerae PCR Stl Norovirus GI/GII PCR Stl GI Panel (PCR) Com 06/03/18 06/03/18 06/03/18 08:10 11:10 16:15 WBC RBC Hgb Hct MCV MCH MCHC RDW Plt Count MPV Immature Gran % Seg Neutrophils % Lymphocytes % Monocytes % Eosinophils % Basophils % Neutrophils # Lymphocytes # Monocytes # Eosinophils # Basophils # Reactive Lymphocytes Platelet Estimate Sodium Potassium Chloride Carbon Dioxide BUN Creatinine Est GFR ( Amer) Est GFR (Non-Af Amer) BUN/Creatinine Ratio Glucose POC Glucose 100 H 145 H Calculated Osmolality Calcium Urine Color Urine Clarity Urine pH Ur Specific Winston Urine Protein Urine Glucose (UA) Urine Ketones Urine Blood Urine Nitrite Urine Bilirubin Urine Urobilinogen Ur Leukocyte Esterase Urine Microscopic RBC Urine Microscopic WBC Ur Squamous Epith Cells Urine Bacteria Hyaline Casts Ur Culture Indicated? Stl C. cayetanensis PCR Not detected Stool Rotavirus A PCR Not detected Stl Adenov F 40/41 PCR Not detected Stool Astrovirus (PCR) Not detected Stool Campylobacter PCR Not detected Stl C. diff Tox A/B PCR Not detected Stool Cryptosporidium PCR Not detected Stl Sh Tox Pr E STEC PCR Not detected Stool E coli O157 PCR Not detected Stl Enterotoxigenic E PCR Not detected Stool EPEC (PCR) Not detected Stool EAEC (PCR) Not detected Stl E. histolytica PCR Not detected Stool Giardia Lamblia PCR Not detected Stool Salmonella PCR Not detected Stool Sapovirus (PCR) Not detected Stl P. shigelloides PCR Not detected Stl Shigella/EIEC PCR Not detected St Y.enterocolitica PCR Not detected Stool Vibrio (PCR) Not detected Stl Vibrio cholerae PCR Not detected Stl Norovirus GI/GII PCR Not detected Stl GI Panel (PCR) Com See below - Attending Attestation I examined this patient and my medical decision-making was reviewed with the Advanced Practice Nurse. I agree with the documented findings, disposition and treatment plan as described except to the extent set forth below. Feeling better today. Still with 3-4 loose stools since early this AM. No incontinence. Energy is better, and he is eating well. Continue supportive measures. Stools sent for infectious etiology; clinically more likely from therapy.
--- NOTE | 2018-06-03 17:57 | Event Note ---
Date of Encounter: 06/03/18 Time of Encounter: 17:54 Spoke to the patient this afternoon in his room. The patient's , Teri, called me yesterday evening to speak about the patient's condition. During my encounter the patient he states he is feeling better, and I discussed with him new possible treatment plan with the chemotherapy that does not include irinotecan, which is causes significant diarrhea, and probably cause of his dehydration and malaise the last 2 weeks. Spoke to the patient's nurse, and she will do verbal order for continue the patient's Claritin 10 mg daily. He has got watery eyes and rhinorrhea. Also though start Lomotil for his diarrhea to help slow down his bowels as we does not get into trouble at discharge. She also has a decubitus ulcer and sacral area. We will continue use barrier cream. Patient will need home physical therapy service. Patient should see me or Dr. Garcia in clinic within 5 days of discharge to discuss next treatment plan with FOLFOX and Neulasta. We would like to give him a two-week break to get stronger, and see physical therapy.
[2018-06-03 19:01] LABS: Adenovirus F 40/41 PCR Not detected (Not detect); Astrovirus PCR Not detected (Not detect); C.difficile Toxin A/B by PCR Not detected (Not detect); Campylobacter by PCR Not detected (Not detect); Cryptosporidium by PCR Not detected (Not detect); Cyclospora cayetanensis PCR Not detected (Not detect); E. coli O157 by PCR Not detected (Not detect); Entamoeba histolytica PCR Not detected (Not detect); Enteroaggregative E.coli(EAEC) Not detected (Not detect); Enteropathogenic E.coli(EPEC) Not detected (Not detect); Enterotoxigenic E.coli (ETEC) Not detected (Not detect); Giardia lamblia PCR Not detected (Not detect); Norovirus GI/GII PCR Not detected (Not detect); Plesiomonas shigelloides PCR Not detected (Not detect); Rotavirus A PCR Not detected (Not detect); Salmonella PCR Not detected (Not detect); Sapovirus PCR Not detected (Not detect); Shig/EnteroinvasiveE coli EIEC Not detected (Not detect); Shigalike tox-prod E coli STEC Not detected (Not detect); Vibrio PCR Not detected (Not detect); Vibrio cholerae PCR Not detected (Not detect); Yersinia enterocolitica PCR Not detected (Not detect)
[2018-06-04 04:48] LABS: BUN/Creatinine Ratio 19 (6-26); Blood Urea Nitrogen 22 mg/dL (8-23); Calcium 7.5 mg/dL (8.6-10.3); Carbon Dioxide 20 mEq/L (23-29); Chloride 119 mEq/L (98-107); Glucose 115 mg/dL (70-105); Osmolality,Calculated 300 (280-300); Potassium 3.8 mEq/L (3.5-5.1); Sodium 143 mEq/L (136-145); eGFR For Non-African Americans 60 (> 60)
[2018-06-04 05:13] LABS: % Iron Saturation 22 % (20-55); Ferritin 872 ng/mL (20-250); Iron 41 mcg/dL (65-175); Transferrin 133 mg/dL (203-362)
[2018-06-04] MEDS: Magic Mouthwash 10 ML UD Cup PO SCH (06:14)
[2018-06-04] MEDS: *HR* Enoxaparin 40 MG/0.4 ML SYRINGE SQ SCH (06:14)
[2018-06-04 07:13] VITALS: BP 112/67
[2018-06-04] MEDS: Loratadine 10 MG TABLET PO SCH (08:21)
[2018-06-04] MEDS: Famotidine 20 MG TABLET PO SCH (08:21)
--- NOTE | 2018-06-04 09:11 | Physician Discharge Referral ---
Home Health/Hosp Referral Info Transfer to: Home Health Provider in Charge Post Discharge: PCP (needs physical therapy and aids) - Diagnosis (1) Acute kidney injury superimposed on chronic kidney disease Status: Acute (2) Fatigue Status: Acute (3) Metastatic colon cancer to liver Status: Chronic (4) Anemia Status: Chronic (5) Debility Status: Acute (6) Type 2 diabetes mellitus Status: Acute - Respiratory Orders Smoking Cessation: Smoking cessation has been advised. For more information, call the [place] Tobacco Quit Line at 2-001-SVWB-NOW. - Transfer Medications Home Medications: Aspirin 81 mg PO DAILY 01/24/18 [History] Cholecalciferol (D-3) [Vitamin D] 1,000 mg PO DAILY 01/24/18 [History] Flaxseed Oil [[place]-3 Flaxseed Oil] 1,000 mg PO DAILY 01/24/18 [History] Simvastatin [Zocor] 40 mg PO HS 01/24/18 [History] SitaGLIPtin [Januvia] 25 mg PO DAILY 01/24/18 [History] Lidocaine/Prilocaine [Emla] 1 appl TP AD #30 gm 01/30/18 [Rx] Ondansetron HCl [Zofran] 4 mg PO Q4H PRN #30 tablet 01/30/18 [Rx] Prochlorperazine Maleate [Compazine] 10 mg PO Q6H PRN #30 tablet 01/30/18 [Rx] Tamsulosin [Flomax] 0.4 mg PO DAILY #30 cap.er.24h 02/12/18 [Rx] Hydrocortisone [Anusol-Hc] 30 gm RC BID #14 cream..g. 04/17/18 [Rx] Polyethylene Glycol 3350 [MiraLAX] 17 gm PO DAILY #30 powd.pack 04/17/18 [Rx] Benzocaine [Boil Relief] 1 appl TP Q6H PRN #28 oint...g. 04/21/18 [Rx] Magic Mouthwash [Magic Mouthwash BLM] 10 ml PO QID PRN #240 ml 05/11/18 [Rx] Potassium Chloride 20 meq PO BID #60 tab.er.prt 05/11/18 [Rx] Loperamide [Imodium] 2 mg PO DAILY PRN 06/02/18 [History] Allergies/Adverse Reactions: 3 Allergy/AdvReac Type Severity Reaction Status Date / Time No Known Drug Allergies Allergy Unknown None Verified 05/11/18 09:38 Certification: Further, I certify that my clinical findings support that this patient is homebound (i.e. absences from home require considerable and taxing effort and are for medical reasons or mandaen services or infrequently or short duration when for other reasons) because: Homebound Reason: Patient requires assistance of a person or device to safely leave home Attestation: My signature below is to certify that this patient is under my care and that I, or nurse practitioner, or a physician's therapeutic recreation assistant working with me, has a face-to -face encounter with this patient.
--- NOTE | 2018-06-04 09:12 | Discharge Summary ---
- NOTES TO OUTPATIENT PROVIDER Notes to Outpatient Provider: Patient to follow-up with oncology as outpatient to discuss future treatment options. Orders not resulted at time of discharge: Pending orders 06/02/18 22:48 Culture,Urine [RM] Routine Date of Encounter: 06/04/18 Time of Encounter: 09:11 - Discharge Diagnosis (1) Acute kidney injury superimposed on chronic kidney disease Priority: Primary Status: Acute (2) Fatigue Priority: Secondary Status: Acute Qualifiers: Fatigue type: chronic, unspecified Qualified Code(s): R53.82 - Chronic fatigue, unspecified (3) Metastatic colon cancer to liver Priority: Secondary Status: Chronic (4) Anemia Priority: Secondary Status: Chronic Qualifiers: Anemia type: iron deficiency Iron deficiency anemia type: chronic blood loss Qualified Code(s): D50.0 - Iron deficiency anemia secondary to blood loss (chronic) (5) Debility Priority: Secondary Status: Acute (6) Type 2 diabetes mellitus Priority: Secondary Status: Acute Qualifiers: Diabetes mellitus longterm insulin use: without longterm use Diabetes mellitus complication status: without complication Qualified Code(s): E11.9 - Type 2 diabetes mellitus without complications (7) Diarrhea Priority: Secondary Status: Acute Qualifiers: Diarrhea type: unspecified type Qualified Code(s): R19.7 - Diarrhea, unspecified Hospital course: Mr. Mcfarland is a 77 year old male who presented to the emergency department with weakness and fatigue. The patient was noted to be dehydrated and was having diarrhea secondary to chemotherapy. The patient was admitted to the hospital for IV hydration and supportive care. The patient was seen by physical therapy who recommended home health care with physical therapy. Patient was seen by oncology who will follow patient as an outpatient for further treatment options and alteration of his chemotherapy to avoid diarrhea. The patient's serum creatinine improved throughout his stay and 1.60-1.18 With IV fluids. Patient had stool studies which were negative and was started on loperamide by oncology. Diarrhea resolved and patient felt much better prior to Discharge. Patient was also started on Marinol for decreased appetite and malnutrition per Oncology. Patient is stable and agreeable to discharge on 06/04/2018. All questions answered. Discharge discussed with: patient, family, nurse - Time Spent with Patient Total time spent providing and/or coordinating discharge services: Greater than 30 minutes - Discharge Medications Prescriptions: Dronabinol [Marinol] 5 mg PO BIDLS 30 Days #60 capsule Loratadine [Claritin] 10 mg PO DAILY 30 Days #30 tablet Home Medications: Aspirin 81 mg PO DAILY 01/24/18 [History] Cholecalciferol (D-3) [Vitamin D] 1,000 mg PO DAILY 01/24/18 [History] Flaxseed Oil [[place]-3 Flaxseed Oil] 1,000 mg PO DAILY 01/24/18 [History] Simvastatin [Zocor] 40 mg PO HS 01/24/18 [History] SitaGLIPtin [Januvia] 25 mg PO DAILY 01/24/18 [History] Lidocaine/Prilocaine [Emla] 1 appl TP AD #30 gm 01/30/18 [Rx] Ondansetron HCl [Zofran] 4 mg PO Q4H PRN #30 tablet 01/30/18 [Rx] Prochlorperazine Maleate [Compazine] 10 mg PO Q6H PRN #30 tablet 01/30/18 [Rx] Tamsulosin [Flomax] 0.4 mg PO DAILY #30 cap.er.24h 02/12/18 [Rx] Hydrocortisone [Anusol-Hc] 30 gm RC BID #14 cream..g. 04/17/18 [Rx] Benzocaine [Boil Relief] 1 appl TP Q6H PRN #28 oint...g. 04/21/18 [Rx] Magic Mouthwash [Magic Mouthwash BLM] 10 ml PO QID PRN #240 ml 05/11/18 [Rx] Loperamide [Imodium] 2 mg PO DAILY PRN 06/02/18 [History] Dronabinol [Marinol] 5 mg PO BIDLS 30 Days #60 capsule 06/04/18 [Rx] Loratadine [Claritin] 10 mg PO DAILY 30 Days #30 tablet 06/04/18 [Rx] Allergies/Adverse Reactions: 3 Allergy/AdvReac Type Severity Reaction Status Date / Time No Known Drug Allergies Allergy Unknown None Verified 05/11/18 09:38 Date of admission: 06/01/18 14:13 Primary care physician: Reggie Reynoso MD Consults: 06/01/18 17:36 Consult to Oncology [CONS] Routine Consulting Provider: [facility] Reason for Consult: A patient of Dr. Garcia; can be seen in the morning. Stage 4 adenoca of colon. Time Notified: 17:30 Call Completed: Yes 06/02/18 00:55 Consult to Physical Therapy [CONS] Routine Comment: Evaluate, develop and implement POC Reason for Consult: Debility. Does patient have active BEDREST order?: No Is patient medically & hemodynamically stable?: Yes Patient assessed for mobility or mobilized this visit?: No 06/02/18 13:16 consult to squeezer operator [Consult to Nutrition] [CONS] Routine Comment: stage IV colon CA on chemo,dehydration,wt loss Consulting Provider: NUTRITION Reason for Dietary Consult: PO Supplementation Other Other:: stage IV colon CA on chemo,dehydration,wt loss - Constitutional Vitals: Temp Pulse Resp BP Pulse Ox 97.8 F 69 18 112/67 97 06/04/18 07:11 06/04/18 07:11 06/04/18 07:11 06/04/18 07:11 06/04/18 07:11 General appearance: Present: A&O X 3, no acute distress, answers questions appropriately Exam: Constitutional: No acute distress, Alert Psych: AAO x 3 HEENT: NCAT, EOMI Neck: supple Cardio: regular rate and rhythm, +s1s2, no murmurs/rubs/gallops Resp: clear to ascultation bilaterally Abd: soft, non tender/non distended, positive bowel sounds Extremities: no clubbing/cyanosis/edema appreciated - Patient Status Disposition: Home Health Service Condition: Good Functional capacity at discharge: independent ambulation Overall status at discharge: patient is back to baseline - Discharge Instructions Follow Up With: Reggie Reynoso MD [Primary Care Provider] - - Diet and Activity Activity: as per physical therapy, increase activity as tolerated Diet: advance to your usual diet - VTE Documentation of Mechanical Device: Intermittent pneumatic compression device
== END 2018-06-04 12:15 | disposition home health service (06) ==
LOC: 2ANU → SUATTDRO 17:53
PROVIDERS: ADMIT Hospitalist; ATTEND Internal Medicine